=== PATIENT | male | born 1965 | race Caucasian/White ===

== ENCOUNTER 2017-12-31 21:25 | Emergency (ER) | payer OTHER ==
[~2017-12-31] VITALS: Ht 177.8 cm; Wt 117.3 kg
[~2017-12-31 21:25] MED LIST: LEVO25TA5 PO; LISI-730 PO
[2017-12-31 21:43] VITALS: TEMP 37.1; Ht 177.8 cm; Wt 117.3 kg
[2017-12-31] MEDS ORDERED: AMOXICIL/CLAVU 875MG HOME PACK PO ONE (22:15)
[2017-12-31] MEDS ORDERED: AMOX875T PO (22:15)
[2017-12-31 22:36] VITALS: BP 125/75; PULSE 78; O2SAT 98
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
== END 2017-12-31 22:41 | disposition home or self-care (01) ==
LOC: C.EDB 21:27 → C.EDD 22:41
DX: L03.113 Cellulitis of right upper limb (principal); S50.811A Abrasion of right forearm, initial encounter; W55.03XA Scratched by cat, initial encounter; Z86.72 Personal history of thrombophlebitis; F17.210 Nicotine dependence, cigarettes, uncomplicated; Z79.899 Other long term (current) drug therapy

== ENCOUNTER 2021-11-25 09:59 | Observation (INO) ==
[2021-11-25] MEDS ORDERED: MECLIZINE HCL 25 MG TAB PO STA (10:23)
[2021-11-25] MEDS ORDERED: ONDANSETRON INJ 2 MG/ML 2 ML VIAL IV STA (10:23)
--- NOTE | 2021-11-25 10:23 | Emergency Department Note ---
Impression & Plan Carotid artery stenosis, Dizziness, Vertebral artery stenosis, Ambulatory dysfunction, Dehydration ED Provider Note NAME: LOWELL HERNÁNDEZ AGE: 56 SEX: M : 1965 ARRIVES VIA: Walk-In INFORMANT: Patient, ED PROVIDER(S): Amarjit Rogers MD Chief Complaint: Dizziness HPI: Patient presents from home due to concern of generalized weakness and was unable to get up and out of bed. The patient believes her symptoms began this morning. No other reported findings or concerns per EMS. Patient does live at home with his . Patient denies any recent falls or trauma and denies any head neck chest back or abdominal pain. Patient does state that he has not been using the bathroom as well. The patient denies any cough or fever. 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 The patient denies any cough. Patient denies any abdominal pain or nausea vomiting. No exacerbating or remitting factors. ROS: See HPI for pertinent positives and negatives. A total of 10 systems were reviewed and otherwise negative. Past medical history: See below Surgical history: See below Social history: See below Physical Exam: GENERAL: Well appearing, well nourished, NAD, wearing glasses, wearing a mask, non-toxic. EYE EXAM: Normal conjunctiva. PERRL, no anisocoria and EOM's grossly intact w/o pain. No obvious nystagmus. [OROPHARYNX: Moist mucus membranes. Edentulous. NECK: Supple, no nuchal rigidity, no adenopathy, non-tender. No signs of meningismus. FROM of the neck with good chin to chest and neck extension. No stridor. No carotid bruits appreciated LUNGS: Clear to auscultation. Normal chest wall mechanics. HEART: NSR, no MRG. ABDOMEN: Abdomen soft, non-tender, normo-active bowel sounds, no masses, no rebound or guarding. BACK: No CVA TTP. SKIN: No rashes and no bruising. UPPER EXTREMITIES: Upper extremities are grossly normal. LOWER EXTREMITIES: Grossly normal, no edema. NEURO EXAM: A&O x3, cranial nerves II-XII grossly intact, normal speech, moves all 4 extremities on command w/o issue. Good finger to nose, no drift, no sensory deficits. Differential diagnoses: Benign positional vertigo, dehydration, hypovolemia, anemia, tumor, infection, hypoglycemia, electrolyte abnormalities, cardiac sources, intracerebral event, toxicologic, neurologic, as well as other pathologies. Course: Patient was seen and evaluated the bedside. Full history physical exam was performed. EKG interpreted by me Sinus bradycardia with first-degree AV block, rate of 57, prolonged ME, normal axis, no obvious ST elevations. Imaging Studies: See Below Cardiac monitoring: An order was placed for continuous cardiac monitoring. The monitor shows a rate of 65 with sinus rhythm. MDM: Patient presented due to concern for staggering gait and associated dizziness. The patient was treated symptomatically and did have CT of the head and CT angiography of the head and neck to rule out possible posterior ischemia. On reassessment the patient was feeling well. The patient has a normal white count H&H and platelet count kidney function is unremarkable albeit with prerenal azotemia. The patient did receive IV fluids. Troponin not elevated and the patient is COVID-negative. CT of the head is negative. CT angiography head neck did show concern for right ICA as well as right vertebral artery stenosis that is high-grade near complete occlusion. I did convey this to the patient. I did speak with on-call neurology who recommended admission and starting Plavix 75 mg daily. This was ordered and I did speak with Page Guerin PA-C and the patient was admitted by Dr. Conroy. Past Med/Surg History Medical History CAD (coronary artery disease) Cellulitis Diabetes mellitus, type II HBP (high blood pressure) Hypothyroidism Nonischemic cardiomyopathy Renal colic Superficial thrombophlebitis Tobacco use Surgical History History of cardiac cath 2015 History of colonoscopy Family History Brother Heart disease Father Heart disease Mother Lung cancer Social History Smoking Status: Unknown if ever smoked Tobacco Type: Cigarettes Cigarettes Per Day: 1ppd x 40 years; Hx Alcohol Use: No Hx Substance Use: No Preferred Language: Hungarian Communication Ability: Effective Bellman Required: No Beliefs That Will Affect Care: None Current Living Situation: Spouse Other Information That Helps Us Care for You: No Feels Safe at Home: Yes Safety Concerns: Feels Safe At This Time Assistive Devices: None Allergies Allergies Allergy/AdvReac Type Severity Reaction Status Date / Time Cipro Allergy Unknown Itching Verified 09/05/14 14:10 and rash ciprofloxacin Allergy Unknown Itching Verified 11/10/20 10:11 and rash Home Meds Home Medications Medication Instructions Recorded Confirmed aspirin 81 mg tablet,delayed 81 mg PO QAM 03/15/18 11/25/21 release levothyroxine 75 mcg tablet 75 mcg PO DAILY 03/15/18 11/25/21 metoprolol succinate 100 mg 100 mg PO QAM 03/15/18 11/25/21 tablet,extended release 24 hr (Toprol XL) fosinopril 10 mg tablet 5 mg PO HS tab 11/12/19 11/25/21 montelukast 10 mg tablet 10 mg PO QAM 11/12/19 11/25/21 meclizine 25 mg tablet 25 mg PO BID PRN 11/25/21 11/25/21 Previous Rx's Medication Instructions Recorded nitroglycerin 0.4 mg sublingual 0.4 mg SL Q5M PRN #25 tab 11/14/19 tablet Results & Data (ED) Vital Signs Vital Signs - 24 hr 11/25/21 10:00 11/25/21 10:17 11/25/21 10:23 Temperature 36.5 C Temperature Source Oral Pulse Rate 63 56 L 65 Pulse Rate [Apical] Pulse Rhythm Regular Regular Regular Pulse Rhythm [Apical] Pulse Strength Normal Pulse Strength [Apical] Respiratory Rate 20 20 20 Respiratory Effort / Characteristics Non-Labored Spontaneous Respiratory Depth Normal Respiratory Pattern Regular Blood Pressure 138/66 Blood Pressure [Left Arm] Blood Pressure Mean 90 Blood Pressure Mean [Left Arm] Blood Pressure Position [Left Arm] Pulse Oximetry 97 96 98 Oxygen Delivery Method Room Air Room Air Room Air Sepsis Recent Fever Within 48 Hours No Sepsis New/Unexplained Change in Mental Status No Sepsis Action Taken by Nursing No Action Required 11/25/21 10:30 11/25/21 12:01 Temperature Temperature Source Pulse Rate Pulse Rate [Apical] 56 L 57 L Pulse Rhythm Pulse Rhythm [Apical] Regular Regular Pulse Strength Pulse Strength [Apical] Normal Normal Respiratory Rate 20 18 Respiratory Effort / Characteristics Non-Labored Spontaneous Non-Labored Respiratory Depth Normal Normal Respiratory Pattern Regular Regular Blood Pressure Blood Pressure [Left Arm] 139/74 148/70 H Blood Pressure Mean Blood Pressure Mean [Left Arm] 95 96 Blood Pressure Position [Left Arm] Sitting Sitting Pulse Oximetry 96 97 Oxygen Delivery Method Room Air Room Air Sepsis Recent Fever Within 48 Hours Sepsis New/Unexplained Change in Mental Status Sepsis Action Taken by [facility] Medications Current Medication List: was personally reviewed by me Laboratory Data Attestation: I reviewed the patient's lab results. Result diagrams: 11/25/21 10:17 11/25/21 10:17 Lab Results 11/25/21 11/25/21 11/25/21 Range/Units 10:17 10:17 10:17 WBC 9.72 (4.8-10.8) K/uL RBC 4.64 L (4.7-6.1) M/uL Hgb 14.6 (14.0-18.0) g/dL Hct 42.3 (42-52) % MCV 91.2 (80-100) fL MCH 31.5 (25-34) pg MCHC 34.5 (32-36) g/dL RDW Std Deviation 44.6 (36.4-46.3) fL RDW Coeff of Rhonda 13.5 (11.5-14.5) % Plt Count 229 (130-400) K/uL MPV 9.4 (7.4-10.4) fL Immature Gran % (Auto) 0.2 % Neut % (Auto) 52.7 % Lymph % (Auto) 32.8 % [place] % (Auto) 8.8 % Eos % (Auto) 5.2 % Baso % (Auto) 0.3 % Neut # (Auto) 5.11 (1.4-6.5) K/uL Lymph # (Auto) 3.19 (1.2-3.4) K/uL [place] # (Auto) 0.86 H (0.11-0.59) K/uL Eos # (Auto) 0.51 H (0-0.5) K/uL Baso # (Auto) 0.03 (0-0.2) K/uL Immature Gran # (Auto) 0.02 (0.00-0.02) K/uL PT 10.9 (9.0-12.0) Seconds INR 1.0 (0.9-1.1) APTT 28.6 (21.0-31.0) Seconds PTT Ratio 1.0 Sodium 137 (136-145) mmol/L Potassium 4.1 (3.5-5.1) mmol/L Chloride 107 (98-107) mmol/L Carbon Dioxide 24 (21-32) mmol/L Anion Gap 6 (3-11) BUN 16 (6-23) mg/dl Creatinine 0.68 (0.6-1.4) mg/dl Est Cr Clr Drug Dosing 146.6 ml/min Est GFR ( Amer) 122.0 ml/min Est GFR (Non-Af Amer) 105.3 ml/min BUN/Creatinine Ratio 23.5 H (10-20) Glucose 113 H (70-99(Fasting)) mg/dl Calcium 9.1 (8.5-10.1) mg/dl Total Bilirubin 0.5 (0.2-1.0) mg/dl AST 14 (13-39) U/L ALT 15 (7-52) U/L Alkaline Phosphatase 48 (34-104) U/L Troponin I High Sens 5.1 (0-20) pg/ml Total Protein 6.9 (6.0-8.3) gm/dl Albumin 3.9 (3.4-5.0) gm/dl Globulin 3.0 (2.5-4.0) gm/dl Albumin/Globulin Ratio 1.3 (0.9-2) SARS-CoV-2, RNA, NAAT (NEGATIVE) 11/25/21 Range/Units 12:40 WBC (4.8-10.8) K/uL RBC (4.7-6.1) M/uL Hgb (14.0-18.0) g/dL Hct (42-52) % MCV (80-100) fL MCH (25-34) pg MCHC (32-36) g/dL RDW Std Deviation (36.4-46.3) fL RDW Coeff of Rhonda (11.5-14.5) % Plt Count (130-400) K/uL MPV (7.4-10.4) fL Immature Gran % (Auto) % Neut % (Auto) % Lymph % (Auto) % [place] % (Auto) % Eos % (Auto) % Baso % (Auto) % Neut # (Auto) (1.4-6.5) K/uL Lymph # (Auto) (1.2-3.4) K/uL [place] # (Auto) (0.11-0.59) K/uL Eos # (Auto) (0-0.5) K/uL Baso # (Auto) (0-0.2) K/uL Immature Gran # (Auto) (0.00-0.02) K/uL PT (9.0-12.0) Seconds INR (0.9-1.1) APTT (21.0-31.0) Seconds PTT Ratio Sodium (136-145) mmol/L Potassium (3.5-5.1) mmol/L Chloride (98-107) mmol/L Carbon Dioxide (21-32) mmol/L Anion Gap (3-11) BUN (6-23) mg/dl Creatinine (0.6-1.4) mg/dl Est Cr Clr Drug Dosing ml/min Est GFR ( Amer) ml/min Est GFR (Non-Af Amer) ml/min BUN/Creatinine Ratio (10-20) Glucose (70-99(Fasting)) mg/dl Calcium (8.5-10.1) mg/dl Total Bilirubin (0.2-1.0) mg/dl AST (13-39) U/L ALT (7-52) U/L Alkaline Phosphatase (34-104) U/L Troponin I High Sens (0-20) pg/ml Total Protein (6.0-8.3) gm/dl Albumin (3.4-5.0) gm/dl Globulin (2.5-4.0) gm/dl Albumin/Globulin Ratio (0.9-2) SARS-CoV-2, RNA, NAAT NEGATIVE (NEGATIVE) Administered Medications Discontinued Medications Clopidogrel Bisulfate (Clopidogrel Bisulfate 75 Mg Tab) 75 mg PO NOW ONE Stop: 11/25/21 12:21 Last Admin: 11/25/21 12:41 Dose: 75 mg Documented by: [id number] Sodium Chloride (Nss 1000ml) 1,000 mls @ 999 mls/hr IV .Q1H1M SADIA Stop: 11/25/21 11:30 Last Infusion: 11/25/21 11:40 Dose: 0 mls/hr Documented by: [id number] Admin: 11/25/21 10:39 Dose: 999 mls/hr Documented by: [id number] Ioversol (Optiray 320 125ml) 120 ml IV ONCE ONE Stop: 11/25/21 11:35 Last Admin: 11/25/21 11:34 Dose: 120 ml Documented by: [id number] Meclizine HCl (Meclizine Hcl 25 Mg Tab) 25 mg PO NOW STA Stop: 11/25/21 10:24 Last Admin: 11/25/21 10:39 Dose: Not Given Documented by: [id number] Ondansetron HCl (Ondansetron Inj 2 Mg/Ml 2 Ml Vial) 4 mg IV NOW STA Stop: 11/25/21 10:24 Last Admin: 11/25/21 10:39 Dose: Not Given Documented by: [id number] Imaging Data Radiologist's Impression: Head CT 11/25/21 10:[address] OF THE BRAIN; CT ANGIOGRAM OF THE BRAIN; CT ANGIOGRAM OF THE NECK CLINICAL HISTORY: Gait dysfunction. Difficulty walking. COMPARISON STUDY: No priors. TECHNIQUE: Unenhanced axial CT scan of the brain is performed. Subsequently, following the IV administration of 120 of Optiray 320, CT angiogram of the head and neck was performed from the aortic arch to the vertex. Images are reviewed in the axial, sagittal, and coronal planes. 3-D MIPS images are created and a ssessed. IV contrast was administered without complication. All measurements were calculated based on NASCET criteria. A dose lowering technique was utilized adhering to the principles of ALARA. CT DOSE: 1229.08 mGy.cm FINDINGS: Brain parenchyma: The brain parenchyma is normal in appearance. There is no hemorrhage, mass effect, or evidence of acute territorial ischemia by CT criteria. There is no evidence of enhancing mass lesion on the angiogram phase images. The ventricles, sulci, and cisterns are normal in configuration. Barone- white matter differentiation is preserved. No extra-axial fluid collection is seen. Thoracic aorta: There is atherosclerotic calcification of the thoracic aorta. Visualized portions of the thoracic aorta are normal in caliber. The aortic arch demonstrates 4-vessel variant anatomy. Right carotid arterial system: The right common femoral artery is patent noting atherosclerotic plaque and irregularity. Advanced atherosclerotic plaque is seen the carotid bulb. There is focal high-grade stenosis with near complete occlusion of the proximal right internal carotid artery seen on axial image #258. This is located approximately 1.5 cm above the bifurcation. The remainder of the right internal carotid artery is widely patent, as is the right external carotid artery. Left carotid arterial system: The left common carotid artery is patent noting atherosclerotic plaque and irregularity. There is atherosclerotic calcification of the carotid bulb. The left internal and external carotid arteries are widely patent. Vertebral arteries: There is at least moderate stenosis at the origin of the left vertebral artery. This arises directly from the thoracic aorta as seen on axial image #36. There is focal high-grade stenosis of the proximal right vertebral artery with near complete occlusion seen on axial image #157. This is located at the level of C7-T1. Vertebral arteries are otherwise patent bilaterally noting left-sided dominance. Subclavian arteries: Widely patent bilaterally. Intracranial vasculature: There is mild atherosclerotic calcification of the cavernous carotid arteries. The cher-ae [place] of [place] is developmentally complete. The internal carotid arteries are patent at the skull base, as are the anterior and middle cerebral arteries bilaterally. The vertebrobasilar system and posterior cerebral arteries are widely patent. The left vertebral artery is dominant. There is no aneurysm, high-grade stenosis, or focal vessel cut off seen throughout the intracranial circulation. Jugular veins: Patent bilaterally. Dural sinuses: Patent. Lung apices: Partially visualized upper lobe lung parenchyma appears clear. Soft tissues: The visualized pharyngeal soft tissues are normal in appearance noting angiographic phase technique. The oropharyngeal airway appears widely patent. The thyroid gland is heterogeneous. The salivary glands are normal in appearance. No cervical lymphadenopathy is seen. Skeletal structures: The calvarium appears intact. The cervical spine is within normal limits. Orbits: The bony orbits are intact. Orbital contents are normal as visualized. Sinuses and mastoids: Mild mucosal thickening is noted in the maxillary antra. The remaining paranasal sinuses are clear. The mastoid air cells are well pneumatized. IMPRESSION: 1. There is no hemorrhage, mass effect, or evidence of acute territorial ischemia by CT criteria. 2. Unremarkable CT angiogram of the brain. 3. There is focal high-grade stenosis with near complete occlusion of the proximal right internal carotid artery. 4. There is focal high-grade stenosis with near complete occlusion of the proximal right vertebral artery. 5. There is at least moderate stenosis at the origin of the left vertebral artery. This arises directly from the thoracic aorta. 6. Additional findings as above. ACT 112: Negative or not required by law. Electronically signed by: Don Matute M.D. 11/25/2021 11:55 AM Head CTA 11/25/21 10:[address] OF THE BRAIN; CT ANGIOGRAM OF THE BRAIN; CT ANGIOGRAM OF THE NECK CLINICAL HISTORY: Gait dysfunction. Difficulty walking. COMPARISON STUDY: No priors. TECHNIQUE: Unenhanced axial CT scan of the brain is performed. Subsequently, following the IV administration of 120 of Optiray 320, CT angiogram of the head and neck was performed from the aortic arch to the vertex. Images are reviewed i n the axial, sagittal, and coronal planes. 3-D MIPS images are created and assessed. IV contrast was administered without complication. All measurements were calculated based on NASCET criteria. A dose lowering technique was utilized adhering to the principles of ALARA. CT DOSE: 1229.08 mGy.cm FINDINGS: Brain parenchyma: The brain parenchyma is normal in appearance. There is no hemorrhage, mass effect, or evidence of acute territorial ischemia by CT criteria. There is no evidence of enhancing mass lesion on the angiogram phase images. The ventricles, sulci, and cisterns are normal in configuration. Barone- white matter differentiation is preserved. No extra-axial fluid collection is seen. Thoracic aorta: There is atherosclerotic calcification of the thoracic aorta. Visualized portions of the thoracic aorta are normal in caliber. The aortic arch demonstrates 4-vessel variant anatomy. Right carotid arterial system: The right common femoral artery is patent noting atherosclerotic plaque and irregularity. Advanced atherosclerotic plaque is seen the carotid bulb. There is focal high-grade stenosis with near complete occlusion of the proximal right internal carotid artery seen on axial image #258. This is located approximately 1.5 cm above the bifurcation. The remainder of the right internal carotid artery is widely patent, as is the right external carotid artery. Left carotid arterial system: The left common carotid artery is patent noting atherosclerotic plaque and irregularity. There is atherosclerotic calcification of the carotid bulb. The left internal and external carotid arteries are widely patent. Vertebral arteries: There is at least moderate stenosis at the origin of the left vertebral artery. This arises directly from the thoracic aorta as seen on axial image #36. There is focal high-grade stenosis of the proximal right vertebral artery with near complete occlusion seen on axial image #157. This is located at the level of C7-T1. Vertebral arteries are otherwise patent bilaterally noting left-sided dominance. Subclavian arteries: Widely patent bilaterally. Intracranial vasculature: There is mild atherosclerotic calcification of the cavernous carotid arteries. The cher[place]ae [place] of [place] is developmentally complete. The internal carotid arteries are patent at the skull base, as are the anterior and middle cerebral arteries bilaterally. The vertebrobasilar system and posterior cerebral arteries are widely patent. The left vertebral artery is dominant. There is no aneurysm, high-grade stenosis, or focal vessel cut off seen throughout the intracranial circulation. Jugular veins: Patent bilaterally. Dural sinuses: Patent. Lung apices: Partially visualized upper lobe lung parenchyma appears clear. Soft tissues: The visualized pharyngeal soft tissues are normal in appearance noting angiographic phase technique. The oropharyngeal airway appears widely patent. The thyroid gland is heterogeneous. The salivary glands are normal in appearance. No cervical lymphadenopathy is seen. Skeletal structures: The calvarium appears intact. The cervical spine is within normal limits. Orbits: The bony orbits are intact. Orbital contents are normal as visualized. Sinuses and mastoids: Mild mucosal thickening is noted in the maxillary antra. The remaining paranasal sinuses are clear. The mastoid air cells are well pneumatized. IMPRESSION: 1. There is no hemorrhage, mass effect, or evidence of acute territorial ischemia by CT criteria. 2. Unremarkable CT angiogram of the brain. 3. There is focal high-grade stenosis with near complete occlusion of the proximal right internal carotid artery. 4. There is focal high-grade stenosis with near complete occlusion of the proximal right vertebral artery. 5. There is at least moderate stenosis at the origin of the left vertebral artery. This arises directly from the thoracic aorta. 6. Additional findings as above. ACT 112: Negative or not required by law. Electronically signed by: Don Matute M.D. 11/25/2021 11:55 AM Neck CTA 11/25/21 10:[address] OF THE BRAIN; CT ANGIOGRAM OF THE BRAIN; CT ANGIOGRAM OF THE NECK CLINICAL HISTORY: Gait dysfunction. Difficulty walking. COMPARISON STUDY: No priors. TECHNIQUE: Unenhanced axial CT scan of the brain is performed. Subsequently, following the IV administration of 120 of Optiray 320, CT angiogram of the head and neck was performed from the aortic arch to the vertex. Images are reviewed in the axial, sagittal, and coronal planes. 3-D MIPS images are created and assessed. IV contrast was administered without complication. All measurements were calculated based on NASCET criteria. A dose lowering technique was utilized adhering to the principles of ALARA. CT DOSE: 1229.08 mGy.cm FINDINGS: Brain parenchyma: The brain parenchyma is normal in appearance. There is no hemorrhage, mass effect, or evidence of acute territorial ischemia by CT criteria. There is no evidence of enhancing mass lesion on the angiogram phase images. The ventricles, sulci, and cisterns are normal in configuration. Barone- white matter differentiation is preserved. No extra-axial fluid collection is seen. Thoracic aorta: There is atherosclerotic calcification of the thoracic aorta. Visualized portions of the thoracic aorta are normal in caliber. The aortic arch demonstrates 4-vessel variant anatomy. Right carotid arterial system: The right common femoral artery is patent noting atherosclerotic plaque and irregularity. Advanced atherosclerotic plaque is seen the carotid bulb. There is focal high-grade stenosis with near complete occlusion of the proximal right internal carotid artery seen on axial image #258. This is located approximately 1.5 cm above the bifurcation. The remainder of the right internal carotid artery is widely patent, as is the right external carotid artery. Left carotid arterial system: The left common carotid artery is patent noting atherosclerotic plaque and irregularity. There is atherosclerotic calcification of the carotid bulb. The left internal and external carotid arteries are widely patent. Vertebral arteries: There is at least moderate stenosis at the origin of the left vertebral artery. This arises directly from the thoracic aorta as seen on axial image #36. There is focal high-grade stenosis of the proximal right vertebral artery with near complete occlusion seen on axial image #157. This is located at the level of C7-T1. Vertebral arteries are otherwise patent bilaterally noting left-sided dominance. Subclavian arteries: Widely patent bilaterally. Intracranial vasculature: There is mild atherosclerotic calcification of the cavernous carotid arteries. The cher-ae [place] of [place] is developmentally complete. The internal carotid arteries are patent at the skull base, as are the anterior and middle cerebral arteries bilaterally. The vertebrobasilar system and posterior cerebral arteries are widely patent. The left vertebral artery is dominant. There is no aneurysm, high-grade stenosis, or focal vessel cut off seen throughout the intracranial circulation. Jugular veins: Patent bilaterally. Dural sinuses: Patent. Lung apices: Partially visualized upper lobe lung parenchyma appears clear. Soft tissues: The visualized pharyngeal soft tissues are normal in appearance noting angiographic phase technique. The oropharyngeal airway appears widely patent. The thyroid gland is heterogeneous. The salivary glands are normal in appearance. No cervical lymphadenopathy is seen. Skeletal structures: The calvarium appears intact. The cervical spine is within normal limits. Orbits: The bony orbits are intact. Orbital contents are normal as visualized. Sinuses and mastoids: Mild mucosal thickening is noted in the maxillary antra. The remaining paranasal sinuses are clear. The mastoid air cells are well pneumatized. IMPRESSION: 1. There is no hemorrhage, mass effect, or evidence of acute territorial ischemia by CT criteria. 2. Unremarkable CT angiogram of the brain. 3. There is focal high-grade stenosis with near complete occlusion of the proxi mal right internal carotid artery. 4. There is focal high-grade stenosis with near complete occlusion of the proximal right vertebral artery. 5. There is at least moderate stenosis at the origin of the left vertebral artery. This arises directly from the thoracic aorta. 6. Additional findings as above. ACT 112: Negative or not required by law. Electronically signed by: Don Matute M.D. 11/25/2021 11:55 AM Brain MRI 11/25/21 12:20 MR brain wo con CLINICAL HISTORY: gait instability and dizziness, R vert/ICA stenosi TECHNIQUE: Multiplanar and multisequence MR images of the brain were obtained without intravenous contrast. Comparison: None available at the time of this dictation. FINDINGS: No abnormal restricted diffusion is identified. Foci of T2 and FLAIR hyperintensity are noted in the paraventricular areas consistent with chronic small vessel ischemic disease. The ventricular system is normal in appearance. No mass is seen. There is no mass effect or midline shift. There is no evidence of acute intraparenchymal hemorrhage. No extra axial fluid collections are seen. The corpus callosum, pituitary gland, and cerebellar tonsils appear grossly unremarkable. Flow voids of the major intracranial arterial vessels are identified. Sinus disease is seen in the bilateral maxillary sinuses. IMPRESSION: No evidence of infarct. Sinus disease is noted bilaterally. ACT 112: Negative or not required by law. Electronically signed by: Adi Elizabeth M.D. 11/25/2021 2:10 PM Discharge Plan Visit Data Chief Complaint: Dizziness Stated Complaint: DIZZINESS ED Provider: Amarjit Rogers Discharge Problem: Carotid artery stenosis, Dizziness, Vertebral artery stenosis, Ambulatory dysfunction, Dehydration Patient Disposition: Admitted As Inpatient Discharge Instructions Interventions: ED Discharge Assessment Last Done: 11/25/21 14:37
[2021-11-25] MEDS ORDERED: SODIUM CHLORIDE 0.9% 1000ML 1,000 ML IV SCH (10:30)
[2021-11-25 10:44] LABS: Basophils # (auto) 0.03 K/uL (0-0.2); Basophils % (auto) 0.3 %; Eosinophils # (auto) 0.51 K/uL (0-0.5); Eosinophils % (auto) 5.2 %; Hematocrit (blood only) 42.3 % (42-52); Hemoglobin 14.6 g/dL (14.0-18.0); Immature Granulocytes # (auto) 0.02 K/uL (0.00-0.02); Immature Granulocytes % (auto) 0.2 %; Lymphocytes # (auto) 3.19 K/uL (1.2-3.4); Lymphocytes % (auto) 32.8 %; Mean Corpuscular Hemoglobin 31.5 pg (25-34); Mean Corpuscular Hgb Conc 34.5 g/dL (32-36); Mean Corpuscular Volume 91.2 fL (80-100); Mean Platelet Volume 9.4 fL (7.4-10.4); Monocytes # (auto) 0.86 K/uL (0.11-0.59); Monocytes % (auto) 8.8 %; Neutrophils # (auto) 5.11 K/uL (1.4-6.5); Neutrophils % (auto) 52.7 %; Platelet Count 229 K/uL (130-400); RDW Coefficient of Variation 13.5 % (11.5-14.5); RDW Standard Deviation 44.6 fL (36.4-46.3); Red Blood Count 4.64 M/uL (4.7-6.1); White Blood Count 9.72 K/uL (4.8-10.8)
[2021-11-25 10:53] LABS: Albumin Globulin Ratio 1.3 (0.9-2); Albumin Level 3.9 gm/dl (3.4-5.0); BUN Creatinine Ratio 23.5 (10-20); Bilirubin,Total 0.5 mg/dl (0.2-1.0); Calcium 9.1 mg/dl (8.5-10.1); Creatinine Clr Calc Pharmacy 146.6 ml/min; Est GFR (Non-African American) 105.3 ml/min; Potassium 4.1 mmol/L (3.5-5.1); Total Protein 6.9 gm/dl (6.0-8.3)
[2021-11-25 10:57] LABS: Troponin I High Sensitivity 5.1 pg/ml (0-20)
[2021-11-25] MEDS ORDERED: OPTIRAY 320 125ml IV ONE (11:34)
--- NOTE | 2021-11-25 11:58 | CT Scan Report ---
UNENHANCED CT OF THE BRAIN; CT ANGIOGRAM OF THE BRAIN; CT ANGIOGRAM OF THE NECK CLINICAL HISTORY: Gait dysfunction. Difficulty walking. COMPARISON STUDY: No priors. TECHNIQUE: Unenhanced axial CT scan of the brain is performed. Subsequently, following the IV adminis tration of 120 of [address] 320, CT angiogram of the head and neck was performed from the aortic arch t o the vertex. Images are reviewed in the axial, sagittal, and coronal planes. 3-D MIPS images are cre ated and assessed. IV contrast was administered without complication. All measurements were calculate d based on NASCET criteria. A dose lowering technique was utilized adhering to the principles of ALA RA. CT DOSE: 1229.08 mGy.cm FINDINGS: Brain parenchyma: The brain parenchyma is normal in appearance. There is no hemorrhage, mass effect, or evidence of acute territorial ischemia by CT criteria. There is no evidence of enhancing mass lesi on on the angiogram phase images. The ventricles, sulci, and cisterns are normal in configuration. Gr ay-white matter differentiation is preserved. No extra-axial fluid collection is seen. Thoracic aorta: There is atherosclerotic calcification of the thoracic aorta. Visualized portions of the thoracic aorta are normal in caliber. The aortic arch demonstrates 4-vessel variant anatomy. Right carotid arterial system: The right common femoral artery is patent noting atherosclerotic plaqu e and irregularity. Advanced atherosclerotic plaque is seen the carotid bulb. There is focal high-gra de stenosis with near complete occlusion of the proximal right internal carotid artery seen on axial image #258. This is located approximately 1.5 cm above the bifurcation. The remainder of the right in ternal carotid artery is widely patent, as is the right external carotid artery. Left carotid arterial system: The left common carotid artery is patent noting atherosclerotic plaque and irregularity. There is atherosclerotic calcification of the carotid bulb. The left internal and e xternal carotid arteries are widely patent. Vertebral arteries: There is at least moderate stenosis at the origin of the left vertebral artery. T his arises directly from the thoracic aorta as seen on axial image #36. There is focal high-grade ginny nosis of the proximal right vertebral artery with near complete occlusion seen on axial image #157. T his is located at the level of C7-T1. Vertebral arteries are otherwise patent bilaterally noting left -sided dominance. Subclavian arteries: Widely patent bilaterally. Intracranial vasculature: There is mild atherosclerotic calcification of the cavernous carotid arteri es. The [place] is developmentally complete. The internal carotid arteries are patent at the skull base, as are the anterior and middle cerebral arteries bilaterally. The vertebrobasilar system and posterior cerebral arteries are widely patent. The left vertebral artery is dominant. There is n o aneurysm, high-grade stenosis, or focal vessel cut off seen throughout the intracranial circulation . Jugular veins: Patent bilaterally. Dural sinuses: Patent. Lung apices: Partially visualized upper lobe lung parenchyma appears clear. Soft tissues: The visualized pharyngeal soft tissues are normal in appearance noting angiographic pha se technique. The oropharyngeal airway appears widely patent. The thyroid gland is heterogeneous. The salivary glands are normal in appearance. No cervical lymphadenopathy is seen. Skeletal structures: The calvarium appears intact. The cervical spine is within normal limits. Orbits: The bony orbits are intact. Orbital contents are normal as visualized. Sinuses and mastoids: Mild mucosal thickening is noted in the maxillary antra. The remaining paranasa l sinuses are clear. The mastoid air cells are well pneumatized. IMPRESSION: 1. There is no hemorrhage, mass effect, or evidence of acute territorial ischemia by CT criteria. 2. Unremarkable CT angiogram of the brain. 3. There is focal high-grade stenosis with near complete occlusion of the proximal right internal car otid artery. 4. There is focal high-grade stenosis with near complete occlusion of the proximal right vertebral ar osmin. 5. There is at least moderate stenosis at the origin of the left vertebral artery. This arises direct ly from the thoracic aorta. 6. Additional findings as above. ACT 112: Negative or not required by law. Electronically signed by: Don Matute M.D. 11/25/2021 11:55 AM
[2021-11-25] MEDS ORDERED: CLOPIDOGREL BISULFATE 75 MG TAB PO ONE (12:20)
--- NOTE | 2021-11-25 13:02 | Electrocardiogram Report ---
Test Reason : Blood Pressure : / mmHG Vent. Rate : 057 BPM Atrial Rate : 057 BPM P-R Int : 222 ms QRS Dur : 098 ms QT Int : 428 ms P-R-T Axes : 054 042 080 degrees QTc Int : 416 ms Sinus bradycardia with 1st degree A-V block Poor R wave progression, consider anterior [place] vs. lead placement vs. LVH Abnormal ECG When compared with ECG of 02-MAR-2020 11:00, Premature ventricular complexes are no longer Present Confirmed by Jerardo Cedillo ([id number]) on 11/25/2021 1:01:38 PM Referred By: REFERRED SELF Confirmed By:Jerardo Cedillo
--- NOTE | 2021-11-25 13:26 | History & Physical Report ---
Date of Service November 25, 2021 Assessment & Plan (1) Dizziness: Plan: Patient is 56 y/o M with PMH DM II, nonischemic cardiomyopathy, tobacco use presented to ER with c/o dizziness x 2 months with worsening symptoms. CTA Head and Neck: 1. There is no hemorrhage, mass effect, or evidence of acute territorial ischemia by CT criteria. 2. Unremarkable CT angiogram of the brain. 3. There is focal high-grade stenosis with near complete occlusion of the proximal right internal carotid artery. 4. There is focal high-grade stenosis with near complete occlusion of the proximal right vertebral artery. 5. There is at least moderate stenosis at the origin of the left vertebral artery. This arises directly from the thoracic aorta. Dizziness may be secondary to stenosis. DDX: TIA, CVA Telemetry to monitor for arrhythmias A1c, TSH, Lipid panel in am MRI brain pending PT/OT eval Continue aspirin Patient intolerant to statins per cardiology note. May need to discuss with cardiology further consideration for different medication. Start Plavix, initial dose given in ER Neurology consult, ER spoke with Dr Meyer who had recommended MRI brain and starting Plavix Smoking cessation recommended Vascular surgery consult, if unable to see inpatient consider outpatient referral (2) Diabetes mellitus, type II: Plan: A1c: 8.1 in 05/2021 and 7.3 in 09/2021 with diet modifications A1c in am Novolog sliding scale per protocol (3) Nonischemic cardiomyopathy: Plan: Follows with [facility] cardiology Continue metoprolol succinate, aspirin, fosinopril Pt intolerant to statins (4) Tobacco use: Plan: Smoking cessation recommended (5) Hypothyroidism: Plan: TSH pending Continue hypothyroidism DVT Prophylaxis Lovenox SQ Full Code as per discussion with pt Follows with Dr Lazo for routine care Pt was seen and care coordinated with Dr Conroy. See addendum History of Present Illness Chief Complaint: Dizziness Primary Care Provider: Lucas Lazo MD Patient is 56 y/o M with PMH DM II, nonischemic cardiomyopathy, tobacco use p resented to ER with c/o dizziness x 2 months. Initially dizziness lasted less than a minute. Now lasting 5-10 minutes. Describes dizziness as feeling things shifting side to side and feels off balance and nauseated. No vomiting. Patient reports has occurred with getting up or standing. has not occurred with sitting or lying in bed. States vision somewhat blurry and then takes several minutes to clear. Denies any associated headache. Denies falls. Saw PCP office and trial of meclizine without improvement. Reports vertigo in past and this feels different. Denies fever/chills, diaphoresis, vomiting, diarrhea, constipation, syncope, neck pain, CP, SOB, orthopnea, palpitations, cough, sore throat, choking, otalgia, rhinorrhea, abdominal pain, paresthesias, extremity weakness, extremity edema, rashes, urinary symptoms. Allergies Allergy/AdvReac Type Severity Reaction Status Date / Time Cipro Allergy Unknown Itching Verified 09/05/14 14:10 and rash ciprofloxacin Allergy Unknown Itching Verified 11/10/20 10:11 and rash Home Medications Medication Instructions Recorded Confirmed Type aspirin 81 mg tablet,delayed 81 mg PO QAM 03/15/18 11/10/20 History release levothyroxine 75 mcg tablet 75 mcg PO Q2D 03/15/18 11/10/20 History metoprolol succinate 100 mg 100 mg PO QAM 03/15/18 11/10/20 History tablet,extended release 24 hr (Toprol XL) fosinopril 10 mg tablet 5 mg PO HS tab 11/12/19 11/10/20 History montelukast 10 mg tablet 10 mg PO QAM 11/12/19 11/10/20 History nitroglycerin 0.4 mg sublingual 0.4 mg SL Q5M PRN #25 tab 11/14/19 11/10/20 Rx tablet meclizine 25 mg tablet 25 mg PO BID PRN 11/25/21 11/25/21 History Past Med/Surg History Medical History CAD (coronary artery disease) Cellulitis Diabetes mellitus, type II HBP (high blood pressure) Hypothyroidism Nonischemic cardiomyopathy Renal colic Superficial thrombophlebitis Tobacco use Surgical History (Updated 11/25/21 @ 13:44 by Zoraida Guerin PA-C) History of cardiac cath 2015 History of colonoscopy Family History (Updated 11/25/21 @ 13:36 by Zoraida Guerin PA-C) Brother Heart disease Father Heart disease Mother Lung cancer Social History (Updated 11/25/21 @ 14:11 by Zoraida Guerin PA-C) Smoking Status: Current every day smoker Tobacco Type: Cigarettes Cigarettes Per Day: 1ppd x 40 years; Hx Alcohol Use: No Hx Substance Use: No Preferred Language: Luxembourgish Feels Safe at Home: Yes Review of Systems Review of Systems: All systems reviewed & are unremarkable except as noted in HPI & below Physical Exam Physical Exam: PE per Dr Conroy Results & Data Results & Data ([facility]) Vital Signs (Past 12 Hours) Vital Signs Temp Pulse Pulse Resp BP BP Pulse Ox 11/25/21 12:01 57 L 18 148/70 H 97 11/25/21 10:30 56 L 20 139/74 96 11/25/21 10:23 65 20 98 11/25/21 10:17 56 L 20 96 11/25/21 10:00 36.5 C 63 20 138/66 97 Laboratory Results Short CBC 11/25/21 Range/Units 10:17 WBC 9.72 (4.8-10.8) K/uL Hgb 14.6 (14.0-18.0) g/dL Hct 42.3 (42-52) % Plt Count 229 (130-400) K/uL BMP 11/25/21 10:17 Sodium 137 Potassium 4.1 Chloride 107 Carbon Dioxide 24 BUN 16 Creatinine 0.68 Glucose 113 H Calcium 9.1 Liver Function 11/25/21 Range/Units 10:17 Total Bilirubin 0.5 (0.2-1.0) mg/dl AST 14 (13-39) U/L ALT 15 (7-52) U/L Alkaline Phosphatase 48 (34-104) U/L Albumin 3.9 (3.4-5.0) gm/dl Diagnostic Findings Head CT 11/25/21 10:[address] OF THE BRAIN; CT ANGIOGRAM OF THE BRAIN; CT ANGIOGRAM OF THE NECK CLINICAL HISTORY: Gait dysfunction. Difficulty walking. COMPARISON STUDY: No priors. TECHNIQUE: Unenhanced axial CT scan of the brain is performed. Subsequently, following the IV administration of 120 of Optiray 320, CT angiogram of the head and neck was performed from the aortic arch to the vertex. Images are reviewed in the axial, sagittal, and coronal planes. 3-D MIPS images are created and assessed. IV contrast was administered without complication. All measurements were calculated based on NASCET criteria. A dose lowering technique was utilized adhering to the principles of ALARA. CT DOSE: 1229.08 mGy.cm FINDINGS: Brain parenchyma: The brain parenchyma is normal in appearance. There is no hemorrhage, mass effect, or evidence of acute territorial ischemia by CT criteria. There is no evidence of enhancing mass lesion on the angiogram phase images. The ventricles, sulci, and cisterns are normal in configuration. Barone- white matter differentiation is preserved. No extra-axial fluid collection is seen. Thoracic aorta: There is atherosclerotic calcification of the thoracic aorta. Visualized portions of the thoracic aorta are normal in caliber. The aortic arch demonstrates 4-vessel variant anatomy. Right carotid arterial system: The right common femoral artery is patent noting atherosclerotic plaque and irregularity. Advanced atherosclerotic plaque is seen the carotid bulb. There is focal high-grade stenosis with near complete occlusion of the proximal right internal carotid artery seen on axial image #258. This is located approximately 1.5 cm above the bifurcation. The remainder of the right internal carotid artery is widely patent, as is the right external carotid artery. Left carotid arterial system: The left common carotid artery is patent noting atherosclerotic plaque and irregularity. There is atherosclerotic calcification of the carotid bulb. The left internal and external carotid arteries are widely patent. Vertebral arteries: There is at least moderate stenosis at the origin of the left vertebral artery. This arises directly from the thoracic aorta as seen on axial image #36. There is focal high-grade stenosis of the proximal right vertebral artery with near complete occlusion seen on axial image #157. This is located at the level of C7-T1. Vertebral arteries are otherwise patent bilaterally noting left-sided dominance. Subclavian arteries: Widely patent bilaterally. Intracranial vasculature: There is mild atherosclerotic calcification of the cavernous carotid arteries. The port [place] of [place] is developmentally complete. The internal carotid arteries are patent at the skull base, as are the anterior and middle cerebral arteries bilaterally. The vertebrobasilar system and posterior cerebral arteries are widely patent. The left vertebral artery is dominant. There is no aneurysm, high-grade stenosis, or focal vessel cut off seen throughout the intracranial circulation. Jugular veins: Patent bilaterally. Dural sinuses: Patent. Lung apices: Partially visualized upper lobe lung parenchyma appears clear. Soft tissues: The visualized pharyngeal soft tissues are normal in appearance noting angiographic phase technique. The oropharyngeal airway appears widely patent. The thyroid gland is heterogeneous. The salivary glands are normal in appearance. No cervical lymphadenopathy is seen. Skeletal structures: The calvarium appears intact. The cervical spine is within normal limits. Orbits: The bony orbits are intact. Orbital contents are normal as visualized. Sinuses and mastoids: Mild mucosal thickening is noted in the maxillary antra. The remaining paranasal sinuses are clear. The mastoid air cells are well pneumatized. IMPRESSION: 1. There is no hemorrhage, mass effect, or evidence of acute territorial ischemia by CT criteria. 2. Unremarkable CT angiogram of the brain. 3. There is focal high-grade stenosis with near complete occlusion of the proximal right internal carotid artery. 4. There is focal high-grade stenosis with near complete occlusion of the proximal right vertebral artery. 5. There is at least moderate stenosis at the origin of the left vertebral artery. This arises directly from the thoracic aorta. 6. Additional findings as above. ACT 112: Negative or not required by law. Electronically signed by: Don Matute M.D. 11/25/2021 11:55 AM Head CTA 11/25/21 10:[address] OF THE BRAIN; CT ANGIOGRAM OF THE BRAIN; CT ANGIOGRAM OF THE NECK CLINICAL HISTORY: Gait dysfunction. Difficulty walking. COMPARISON STUDY: No priors. TECHNIQUE: Unenhanced axial CT scan of the brain is performed. Subsequently, following the IV administration of 120 of Optiray 320, CT angiogram of the head and neck was performed from the aortic arch to the vertex. Images are reviewed in the axial, sagittal, and coronal planes. 3-D MIPS images are created and assessed. IV contrast was administered without complication. All measurements were calculated based on NASCET criteria. A dose lowering technique was utilized adhering to the principles of ALARA. CT DOSE: 1229.08 mGy.cm FINDINGS: Brain parenchyma: The brain parenchyma is normal in appearance. There is no hemorrhage, mass effect, or evidence of acute territorial ischemia by CT criteria. There is no evidence of enhancing mass lesion on the angiogram phase images. The ventricles, sulci, and cisterns are normal in configuration. Barone- white matter differentiation is preserved. No extra-axial fluid collection is seen. Thoracic aorta: There is atherosclerotic calcification of the thoracic aorta. Visualized portions of the thoracic aorta are normal in caliber. The aortic arch demonstrates 4-vessel variant anatomy. Right carotid arterial system: The right common femoral artery is patent noting atherosclerotic plaque and irregularity. Advanced atherosclerotic plaque is seen the carotid bulb. There is focal high-grade stenosis with near complete occlusion of the proximal right internal carotid artery seen on axial image #258. This is located approximately 1.5 cm above the bifurcation. The remainder of the right internal carotid artery is widely patent, as is the right external carotid artery. Left carotid arterial system: The left common carotid artery is patent noting atherosclerotic plaque and irregularity. There is atherosclerotic calcification of the carotid bulb. The left internal and external carotid arteries are widely patent. Vertebral arteries: There is at least moderate stenosis at the origin of the left vertebral artery. This arises directly from the thoracic aorta as seen on axial image #36. There is focal high-grade stenosis of the proximal right vertebral artery with near complete occlusion seen on axial image #157. This is located at the level of C7-T1. Vertebral arteries are otherwise patent bilaterally noting left-sided dominance. Subclavian arteries: Widely patent bilaterally. Intracranial vasculature: There is mild atherosclerotic calcification of the cavernous carotid arteries. The port heiden of [place] is developmentally complete. The internal carotid arteries are patent at the skull base, as are the anterior and middle cerebral arteries bilaterally. The vertebrobasilar system and posterior cerebral arteries are widely patent. The left vertebral artery is dominant. There is no aneurysm, high-grade stenosis, or focal vessel cut off seen throughout the intracranial circulation. Jugular veins: Patent bilaterally. Dural sinuses: Patent. Lung apices: Partially visualized upper lobe lung parenchyma appears clear. Soft tissues: The visualized pharyngeal soft tissues are normal in appearance noting angiographic phase technique. The oropharyngeal airway appears widely patent. The thyroid gland is heterogeneous. The salivary glands are normal in appearance. No cervical lymphadenopathy is seen. Skeletal structures: The calvarium appears intact. The cervical spine is within normal limits. Orbits: The bony orbits are intact. Orbital contents are normal as visualized. Sinuses and mastoids: Mild mucosal thickening is noted in the maxillary antra. The remaining paranasal sinuses are clear. The mastoid air cells are well pneumatized. IMPRESSION: 1. There is no hemorrhage, mass effect, or evidence of acute territorial ischemia by CT criteria. 2. Unremarkable CT angiogram of the brain. 3. There is focal high-grade stenosis with near complete occlusion of the proximal right internal carotid artery. 4. There is focal high-grade stenosis with near complete occlusion of the proximal right vertebral artery. 5. There is at least moderate stenosis at the origin of the left vertebral artery. This arises directly from the thoracic aorta. 6. Additional findings as above. ACT 112: Negative or not required by law. Electronically signed by: Don Matute M.D. 11/25/2021 11:55 AM Neck CTA 11/25/21 10:[address] OF THE BRAIN; CT ANGIOGRAM OF THE BRAIN; CT ANGIOGRAM OF THE NECK CLINICAL HISTORY: Gait dysfunction. Difficulty walking. COMPARISON STUDY: No priors. TECHNIQUE: Unenhanced axial CT scan of the brain is performed. Subsequently, following the IV administration of 120 of Optiray 320, CT angiogram of the head and neck was performed from the aortic arch to the vertex. Images are reviewed in the axial, sagittal, and coronal planes. 3-D MIPS images are created and assessed. IV contrast was administered without complication. All measurements were calculated based on NASCET criteria. A dose lowering technique was utilized adhering to the principles of ALARA. CT DOSE: 1229.08 mGy.cm FINDINGS: Brain parenchyma: The brain parenchyma is normal in appearance. There is no hemorrhage, mass effect, or evidence of acute territorial ischemia by CT criteria. There is no evidence of enhancing mass lesion on the angiogram phase images. The ventricles, sulci, and cisterns are normal in configuration. Barone- white matter differentiation is preserved. No extra-axial fluid collection is seen. Thoracic aorta: There is atherosclerotic calcification of the thoracic aorta. Visualized portions of the thoracic aorta are normal in caliber. The aortic arch demonstrates 4-vessel variant anatomy. Right carotid arterial system: The right common femoral artery is patent noting atherosclerotic plaque and irregularity. Advanced atherosclerotic plaque is seen the carotid bulb. There is focal high-grade stenosis with near complete occlusion of the proximal right internal carotid artery seen on axial image #258. This is located approximately 1.5 cm above the bifurcation. The remainder of the right internal carotid artery is widely patent, as is the right external carotid artery. Left carotid arterial system: The left common carotid artery is patent noting atherosclerotic plaque and irregularity. There is atherosclerotic calcification of the carotid bulb. The left internal and external carotid arteries are widely patent. Vertebral arteries: There is at least moderate stenosis at the origin of the left vertebral artery. This arises directly from the thoracic aorta as seen on axial image #36. There is focal high-grade stenosis of the proximal right vertebral artery with near complete occlusion seen on axial image #157. This is located at the level of C7-T1. Vertebral arteries are otherwise patent bilaterally noting left-sided dominance. Subclavian arteries: Widely patent bilaterally. Intracranial vasculature: There is mild atherosclerotic calcification of the cavernous carotid arteries. The port heiden of [place] is developmentally complete. The internal carotid arteries are patent at the skull base, as are the anterior and middle cerebral arteries bilaterally. The vertebrobasilar system and posterior cerebral arteries are widely patent. The left vertebral artery is dominant. There is no aneurysm, high-grade stenosis, or focal vessel cut off seen throughout the intracranial circulation. Jugular veins: Patent bilaterally. Dural sinuses: Patent. Lung apices: Partially visualized upper lobe lung parenchyma appears clear. Soft tissues: The visualized pharyngeal soft tissues are normal in appearance noting angiographic phase technique. The oropharyngeal airway appears widely patent. The thyroid gland is heterogeneous. The salivary glands are normal in appearance. No cervical lymphadenopathy is seen. Skeletal structures: The calvarium appears intact. The cervical spine is within normal limits. Orbits: The bony orbits are intact. Orbital contents are normal as visualized. Sinuses and mastoids: Mild mucosal thickening is noted in the maxillary antra. The remaining paranasal sinuses are clear. The mastoid air cells are well pneumatized. IMPRESSION: 1. There is no hemorrhage, mass effect, or evidence of acute territorial ischemia by CT criteria. 2. Unremarkable CT angiogram of the brain. 3. There is focal high-grade stenosis with near complete occlusion of the proximal right internal carotid artery. 4. There is focal high-grade stenosis with near complete occlusion of the proximal right vertebral artery. 5. There is at least moderate stenosis at the origin of the left vertebral artery. This arises directly from the thoracic aorta. 6. Additional findings as above. ACT 112: Negative or not required by law. Electronically signed by: Don Matute M.D. 11/25/2021 11:55 AM ECG Rate (beats per minute): 57 Rhythm: sinus bradycardia Findings: + 1st degree AV block Code Status & VTE Plan VTE Prophylaxis Plan VTE Prophylaxis will be ordered: Yes Supervising Physician Co-Signing Physician Notes History and physical exam performed by me. History notable for 56-year-old man with diabetes mellitus type 2, non obstructive CAD, nonischemic cardiomyopathy, active smoker who presented with c omplaint of dizziness for the past 2 months has been worsening. Reports dizziness usually feels like objects/images move from side to side, usually still lasts about a minute but none lasting up to 5 to 10 minutes Barrera on getting up while standing. Associated with nausea. Reports significant premature cardiac family history. Still smokes about half to 1 pack/day. On exam, General: No acute distress Eyes: PERRL, conjunctivae normal, not pale, anicteric sclerae, EOM intact bilaterally ENMT: External ear and nose normal, oropharynx normal Respiratory: Normal respiratory effort, no respiratory distress, lungs clear to auscultation, no crackles and no wheezes Cardiovascular: RRR S1 S2 Gastrointestinal (Abdomen): Abdomen is not distended, soft, non-tender to palpation, no guarding, no palpable hepatosplenomegaly, normal bowel sounds Musculoskeletal: No pedal edema Neurologic: Alert and oriented x 3, No focal weakness, sensation grossly intact, No nystagmus Psychiatric: Alert and oriented x 3, euthymic affect Labs grossly unremarkable. CT head did not show any acute hemorrhage or infarct. CT angio head and neck noted focal high-grade stenosis with near complete occlusion of the proximal right internal carotid artery as well as the proximal right vertebral artery and at least moderate stenosis at the origin of the left vertebral artery. MRI brain did not show any evidence of infarct. Dizziness Right carotid artery stenosis Right vertebral artery stenosis Dizziness likely related to vascular disease. Patient on aspirin. ER had started Plavix after talking to neurology. Follow-up neurology evaluation. Review of epic notes as follows [facility] [place] cardiology notes showed that patient has been intolerant to statin in the past. May need to discuss with [place] [facility] cardiology if patient is a candidate for possible treatment with zetia vs PCSK9 inhibitors. Vascular surgery consult Counseled patient extensively on need for smoking cessation Agree with other plans as detailed by Zoraida Guerin PA-C
--- NOTE | 2021-11-25 14:12 | Magnetic Resonance Report ---
MR brain wo con CLINICAL HISTORY: gait instability and dizziness, R vert/ICA stenosi TECHNIQUE: Multiplanar and multisequence MR images of the brain were obtained without intravenous con trast. Comparison: None available at the time of this dictation. FINDINGS: No abnormal restricted diffusion is identified. Foci of T2 and FLAIR hyperintensity are noted in the paraventricular areas consistent with chronic small vessel ischemic disease. The ventricular system i s normal in appearance. No mass is seen. There is no mass effect or midline shift. There is no eviden ce of acute intraparenchymal hemorrhage. No extra axial fluid collections are seen. The corpus callos um, pituitary gland, and cerebellar tonsils appear grossly unremarkable. Flow voids of the major intracranial arterial vessels are identified. Sinus disease is seen in the bi lateral maxillary sinuses. IMPRESSION: No evidence of infarct. Sinus disease is noted bilaterally. ACT 112: Negative or not required by law. Electronically signed by: Adi Elizabeth M.D. 11/25/2021 2:10 PM
[2021-11-25] MEDS ORDERED: ACETAMINOPHEN 325 MG TAB PO PRN (14:50)
[2021-11-25] MEDS ORDERED: POLYETHYLENE (MIRALAX) 17 GM PACK PO PRN (14:50)
[2021-11-25] MEDS ORDERED: GLUCOSE 40% GEL 15 GM TUBE PO PRN (14:50)
[2021-11-25] MEDS ORDERED: PHARMACIST DISCHARGE MED REC CONSULT PRN (14:50)
[2021-11-25] MEDS ORDERED: CARBOHYDRATES FOR HYPOGLYCEMIA PO PRN (14:50)
[2021-11-25] MEDS ORDERED: ONDANSETRON INJ 2 MG/ML 2 ML VIAL IV PRN (14:50)
[2021-11-25] MEDS ORDERED: DEXTROSE 50% 50 ML SYRINGE IV PRN (14:50)
[2021-11-25] MEDS ORDERED: GLUCAGON FOR INJ 1 MG VIAL SQ PRN (14:50)
[2021-11-25] MEDS ORDERED: NITROGLYCERIN SL 0.4 MG/TAB TAB SL PRN (14:50)
[2021-11-25] MEDS ORDERED: GLUCOSE 10 TABS/TUBE PO PRN (14:50)
[2021-11-25 15:02] LABS: Partial Thromboplastin Time 28.6 Seconds (21.0-31.0); Prothrombin Time 10.9 Seconds (9.0-12.0)
--- NOTE | 2021-11-25 16:16 | Neurology Consultation ---
Date of Consultation November 25, 2021 Assessment & Plan (1) Dizziness: 1. MRI brain - no stroke 2. significant stenosis on CTA and occlusion- will need vascular input 3. continue aspirin 81 mg 4. high normal blood pressure for now 5. PT/OT for discharge needs and Mike 6. orthostatic blood pressure q shift Supervising Physician Co-Signing Physician Notes I have seen and discussed above patient with Dr Margi Gallardo, neurology. pt seen and examined. images reviewed, no acute or subacute infarct. R ICA occluded v near occlusion, high grade narroing at origin r vert, mod narrowing l vert. spells of several minutes of things moving back and forth with mild NO otorlogic sxNo CP, palp. Sx primarily with standing, No sx with rolling in bed, cranial nerve, visual loss, double vision, unil weakness, numbnes. There is some non unidirectional instability. Exam is normal, including mike, cn, motor sensory cerebellar. nl gait mild diff with tandem, neg rhomberg mri no acute abnl, minor nonspec changes in white matter. CTA as above. Etiolg of episodes unclear and they do not clearly localize to anterior or post circ, nor peripheral labrynthopathy. Perhaps orthostasis or hypoperfusion could cause global hypoperfusion and the above sx. Check orthostasis, arrhythmia, echo. Dual antiplt tx. vascular surgery consultation appropriate. CT perfusion studies or mri spectroscopy may be helpful to identify the vascular distribution most at risk. MD Jacobo History of Present Illness Reason for Consultation: dizziness Requesting Physician: Mary Conroy MD Attending Physician: Mary Conroy MD History of Present Illness Helio is a56 year old male with PMH -DM II, nonischemic cardiomyopathy, tobacco use presented to [facility] ER 11/25/21 with c/o dizziness x 2 months. Initially dizziness lasted less than a minute. Now lasting 5-10 minutes. Describes dizziness as feeling things shifting side to side and feels off balance and nauseated. No vomiting. It has occurred with getting up or standing. has not occurred with sitting or lying in bed. His vision somewhat blurry and then takes several minutes to clear. Denies any associated headache. Denies falls. Saw PCP office and trial of meclizine without improvement. He had vertigo in past and this feels different. He felt fine when he came into the hospital but has been having these episodes for 2 months and then have been lasting longer Allergies Allergy/AdvReac Type Severity Reaction Status Date / Time Cipro Allergy Unknown Itching Verified 09/05/14 14:10 and rash ciprofloxacin Allergy Unknown Itching Verified 11/10/20 10:11 and rash Home Medications Medication Instructions Recorded Confirmed Type aspirin 81 mg tablet,delayed 81 mg PO QAM 03/15/18 11/25/21 History release levothyroxine 75 mcg tablet 75 mcg PO DAILY 03/15/18 11/25/21 History metoprolol succinate 100 mg 100 mg PO QAM 03/15/18 11/25/21 History tablet,extended release 24 hr (Toprol XL) fosinopril 10 mg tablet 5 mg PO HS tab 11/12/19 11/25/21 History montelukast 10 mg tablet 10 mg PO QAM 11/12/19 11/25/21 History nitroglycerin 0.4 mg sublingual 0.4 mg SL Q5M PRN #25 tab 11/14/19 11/25/21 Rx tablet meclizine 25 mg tablet 25 mg PO BID PRN 11/25/21 11/25/21 History Patient History Medical History CAD (coronary artery disease) Cellulitis Diabetes mellitus, type II HBP (high blood pressure) Hypothyroidism Nonischemic cardiomyopathy Renal colic Superficial thrombophlebitis Tobacco use Surgical History History of cardiac cath 2015 History of colonoscopy Family History Brother Heart disease Father Heart disease Mother Lung cancer Social History Smoking Status: Unknown if ever smoked Tobacco Type: Cigarettes Cigarettes Per Day: 1ppd x 40 years; Hx Alcohol Use: No Hx Substance Use: No Preferred Language: Chinese Communication Ability: Effective Computer Service Technician Required: No Beliefs That Will Affect Care: None Current Living Situation: Spouse Other Information That Helps Us Care for You: No Feels Safe at Home: Yes Safety Concerns: Feels Safe At This Time Assistive Devices: None Review of Systems Review of Systems: All systems reviewed & are unremarkable except as noted in HPI & below Physical Exam Physical Exam: Physical Exam: Constitutional: appearance nourished Ears, Nose, Mouth and Throat: mucous membranes moist, no injection and skin normal, eyes normal Cardiovascular: normal S-1 and S-2 and regular rate and rhythm Respiratory: clear to auscultation (CTA) and no rales, ronchi or wheeze Musculoskeletal: no peripheral edema and good distal pulses Skin: no stigmata of neurocutaneous disease noted and normal and intact Eyes: extraocular muscles intact (EOMI) and pupils equal, round and reactive to light (PERRL) NEUROLOGIC EXAMINATION: Mental status: Alert and interactive Oriented to full date and location Oriented to person Speech fluent with no evidence of aphasia Cranial Nerves smile eye brow raise symmetric Reflexes: Deep tendon reflexes were symmetrical Sensory: light cool touch Coordination: finger to nose, mike Gait/Stance: Posture normal. Gait normal: with steady with steps, base, turning, and tandem gait. Motor: Negative for pronator drift of out stretched arms with eyes closed. 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 5/5, hip flex 5/5 Results & Data ([facility]) Vital Signs (Past 12 Hours) Vital Signs Temp Pulse Pulse Pulse Resp BP BP 11/25/21 15:12 36.2 C L 54 L 16 153/80 H 11/25/21 15:06 55 L 11/25/21 14:51 58 L 16 153/78 H 11/25/21 14:37 49 L 20 148/78 H 11/25/21 14:01 61 14 164/73 H 11/25/21 12:01 57 L 18 148/70 H 11/25/21 10:30 56 L 20 139/74 11/25/21 10:23 65 20 11/25/21 10:17 56 L 20 11/25/21 10:00 36.5 C 63 20 138/66 Pulse Ox 11/25/21 15:12 98 11/25/21 15:06 11/25/21 14:51 98 11/25/21 14:37 96 11/25/21 14:01 100 11/25/21 12:01 97 11/25/21 10:30 96 11/25/21 10:23 98 11/25/21 10:17 96 11/25/21 10:00 97 Laboratory Results Abnormal lab results 07/01/22 07/01/22 Range/Units 10:17 10:17 RBC 4.64 L (4.7-6.1) M/uL Emmons # (Auto) 0.86 H (0.11-0.59) K/uL Eos # (Auto) 0.51 H (0-0.5) K/uL BUN/Creatinine Ratio 23.5 H (10-20) Glucose 113 H (70-99(Fasting)) mg/dl Diagnostic Findings CT head.CTA head/neck- There is no hemorrhage, mass effect, or evidence of acute territorial ischemia by CT criteria. Unremarkable CT angiogram of the brain. There is focal high-grade stenosis with near complete occlusion of the proximal right internal carotid artery. There is focal high-grade stenosis with near complete occlusion of the proximal right vertebral artery. There is at least moderate stenosis at the origin of the left vertebral artery. This arises directly from the thoracic aorta. MRI brain -No evidence of infarct. Sinus disease is noted bilaterally.
[2021-11-25] MEDS: ENOXAPARIN INJ 40 MG/0.4 ML SYR SQ SCH (16:54)
[2021-11-25] MEDS: INSULIN ASPART PER UNIT SC SCH ×2 (17:32→19:52)
[2021-11-25] MEDS ORDERED: lisinopril 5 MG TAB PO SCH (21:00)
[2021-11-25] MEDS ORDERED: FOSINOPRIL SODIUM 10 MG TAB PO SCH (21:00)
[2021-11-26] MEDS: INSULIN ASPART PER UNIT SC SCH ×3 (07:59→17:02)
[2021-11-26] MEDS ORDERED: METOPROLOL SUCC 50MG EXT REL TAB PO SCH (09:00)
[2021-11-26] MEDS ORDERED: CLOPIDOGREL BISULFATE 75 MG TAB PO SCH (09:00)
[2021-11-26] MEDS ORDERED: ASPIRIN 81 MG ECTAB PO SCH (09:00)
[2021-11-26] MEDS ORDERED: LEVOTHYROXINE SODIUM 75 MCG TABLET PO SCH (09:00)
[2021-11-26 09:47] LABS: Hematocrit (blood only) 41.1 % (42-52); Hemoglobin 14.1 g/dL (14.0-18.0); Mean Corpuscular Hemoglobin 31.5 pg (25-34); Mean Corpuscular Hgb Conc 34.3 g/dL (32-36); Mean Corpuscular Volume 91.7 fL (80-100); Mean Platelet Volume 9.4 fL (7.4-10.4); Platelet Count 216 K/uL (130-400); RDW Coefficient of Variation 13.6 % (11.5-14.5); RDW Standard Deviation 45.6 fL (36.4-46.3); Red Blood Count 4.48 M/uL (4.7-6.1); White Blood Count 8.93 K/uL (4.8-10.8)
[2021-11-26 10:07] LABS: BUN Creatinine Ratio 21.7 (10-20); Calcium 8.4 mg/dl (8.5-10.1); Chol HDL Ratio 5.7 (0-5); Creatinine Clr Calc Pharmacy 144.3 ml/min; Est GFR (African American) 121.3 ml/min; Est GFR (Non-African American) 104.6 ml/min
--- NOTE | 2021-11-26 11:35 | Progress Notes ---
DATE OF SERVICE: 11/26/2021. SUBJECTIVE: I am seeing the patient in followup of difficult for him to describe episodes as imbalan ce with some sense of perhaps oscillopsia or that he is moving side to side, but not in a [place]. So me having been associated with nausea. Although he has high-grade stenosis or occlusion of the right internal carotid in the origin of right vert and moderate stenosis of the origin of the left vert, i t is not entirely clear that this is post-ischemia and it is hard to localize it, although probably i n general, I might localize it to the posterior circulation. He has not had any recurrent events. R eviewing his vital signs, his heart rate has ranged from as low as 49 to a maximum of 61. OBJECTIVE: On exam, he is awake and alert. Speech and language are normal and affect appropriate. 1 42/72, 49, 16, 36.4. DATABASE: Echo has been ordered, but not yet done. LDL is 95, which is above goal, and the patient smokes. IMPRESSION AND PLAN: Difficult to describe instability with nausea. In spite of multiple episodes ov er a month, albeit brief, there is no evidence of an anterior or posterior circulation stroke. I wou ld in the interim, while we explore further, treat with dual antiplatelet therapy for 21 days with as pirin and Plavix and then switch to Plavix monotherapy. He needs to be started on a statin with a go al LDL of 70 or less. Smoking cessation is advised. Better control of blood sugar. If the patient continues to have dizziness of uncertain etiology, referral to balance clinic would be appropriate. I wonder whether or not he could be episodically bradycardic and that is causing global hypoperfusion . Would recommend some kind of ongoing cardiac monitoring for bradycardia or atrial fibrillation. If he has not seen by vascular surgery in this hospital stay, would recommend an urgent vascular surg cecil consultation within the next week or so. As said previously, it is difficult to know what he is most symptomatic for. I do not know if Javan could do a physiologic study to see if he was more p dhara to be ischemic in an anterior or posterior circulation distribution. I have no objection if the echocardiogram is performed and is unremarkable to the patient being discharged, although defer to p [facility] care regarding ongoing inpatient monitoring with regard to bradycardia. The patient should se e us in followup post discharge. Job ID: [id number]
--- NOTE | 2021-11-26 13:36 | Hospitalist Progress Note ---
Date of Service November 26, 2021 Assessment & Plan (1) Dizziness: Plan: Patient is 56 y/o M with PMH DM II, nonischemic cardiomyopathy, tobacco use presented to ER with c/o dizziness x 2 months with worsening symptoms. CTA Head and Neck: 1. There is no hemorrhage, mass effect, or evidence of acute territorial ischemia by CT criteria. 2. Unremarkable CT angiogram of the brain. 3. There is focal high-grade stenosis with near complete occlusion of the proximal right internal carotid artery. 4. There is focal high-grade stenosis with near complete occlusion of the proximal right vertebral artery. 5. There is at least moderate stenosis at the origin of the left vertebral artery. This arises directly from the thoracic aorta. Dizziness may be secondary to stenosis. DDX: TIA, CVA Telemetry to monitor for arrhythmias A1c, TSH, Lipid panel in am MRI brain pending PT/OT eval Continue aspirin Patient intolerant to statins per cardiology note. May need to discuss with cardiology further consideration for different medication. Start Plavix, initial dose given in ER Neurology consult, ER spoke with Dr Meyer who had recommended MRI brain and starting Plavix Smoking cessation recommended Vascular surgery consult, if unable to see inpatient consider outpatient referral (2) Diabetes mellitus, type II: Plan: A1c: 8.1 in 05/2021 and 7.3 in 09/2021 with diet modifications A1c in am Novolog sliding scale per protocol (3) Nonischemic cardiomyopathy: Plan: Follows with [facility] cardiology Continue metoprolol succinate, aspirin, fosinopril Pt intolerant to statins (4) Tobacco use: Plan: Smoking cessation recommended (5) Hypothyroidism: Plan: TSH pending Continue hypothyroidism DVT Prophylaxis Lovenox SQ Full Code as per discussion with pt Follows with Dr Lazo for routine care Pt was seen and care coordinated with Dr Conroy. See addendum Admission and Anticipated Discharge Date Admission Date: November 25, 2021 Results & Data Results & Data ([facility]) Vital Signs (Past 12 Hours) Vital Signs Temp Pulse Pulse Resp BP BP Pulse Ox 11/26/21 12:28 36.7 C 55 L 20 130/59 L 96 11/26/21 09:30 49 L 11/26/21 06:25 36.4 C L 54 L 16 142/72 H 96 11/26/21 03:30 36.9 C 53 L 18 121/59 L 95 Laboratory Results Short CBC 11/26/21 Range/Units 09:23 WBC 8.93 (4.8-10.8) K/uL Hgb 14.1 (14.0-18.0) g/dL Hct 41.1 L (42-52) % Plt Count 216 (130-400) K/uL BMP 11/26/21 09:23 Sodium 135 L Potassium 4.0 Chloride 106 Carbon Dioxide 24 BUN 15 Creatinine 0.69 Glucose 140 H Calcium 8.4 L Medications Administered Current Inpatient Medications Acetaminophen (Acetaminophen 325 Mg Tab) 650 mg PO Q4H PRN PRN Reason: Pain or Fever Stop: 12/25/21 14:49 Aspirin (Aspirin 81 Mg Ectab) [facility] Stop: 12/26/21 08:59 Last Admin: 11/26/21 08:34 Dose: 81 mg Documented by: Clopidogrel Bisulfate (Clopidogrel Bisulfate 75 Mg Tab) 75 mg PO QAM [facility] Stop: 12/26/21 08:59 Last Admin: 11/26/21 08:34 Dose: 75 mg Documented by: Dextrose (Dextrose 50% 50 Ml Syringe) 25 - 50 ml IV UD PRN; Protocol PRN Reason: Hypoglycemia Protocol Stop: 12/25/21 14:49 Enoxaparin Sodium (Enoxaparin Inj 40 Mg/0.4 Ml Syr) 40 mg SQ Q24H [facility] Stop: 12/25/21 14:49 Last Admin: 11/25/21 16:54 Dose: Not Given Documented by: Glucagon (Glucagon For Inj 1 Mg Vial) 1 mg SQ UD PRN; Protocol PRN Reason: Hypoglycemia Protocol Stop: 12/25/21 14:49 Glucose (Glucose 10 Tabs/Tube) 4 - 8 tabs PO UD PRN; Protocol PRN Reason: Hypoglycemia Protocol Stop: 12/25/21 14:49 Glucose (Glucose 40% Gel 15 Gm Tube) 15 - 30 gm PO UD PRN; Protocol PRN Reason: Hypoglycemia Protocol Stop: 12/25/21 14:49 Insulin Aspart (Insulin Aspart Per Unit) 0 units SC ACHS [facility] Stop: 12/25/21 16:29 Last Admin: 11/26/21 12:03 Dose: Not Given Documented by: Levothyroxine Sodium (Levothyroxine Sodium 75 Mcg Tablet) 75 mcg PO DAILY [facility] Stop: 12/26/21 08:59 Last Admin: 11/26/21 08:33 Dose: 75 mcg Documented by: Lisinopril (Lisinopril 5 Mg Tab) 5 mg PO HS [facility] Stop: 12/25/21 20:59 Last Admin: 11/25/21 19:53 Dose: Not Given Documented by: Metoprolol Succinate (Metoprolol Succ 50mg Ext Rel Tab) 100 mg PO QAM [facility] Stop: 12/26/21 08:59 Last Admin: 11/26/21 08:33 Dose: 100 mg Documented by: Miscellaneous (Carbohydrates For Hypoglycemia ) 15 - 30 gm PO UD PRN PRN Reason: Hypoglycemia Protocol Stop: 12/25/21 14:49 Miscellaneous Information (Pharmacist Discharge Med Rec Consult) 1 ea N/A UD PRN PRN Reason: Consult Stop: 12/25/21 14:49 Montelukast Sodium (Montelukast Sodium 10 Mg Tablet) 10 mg PO QPM [facility] Stop: 12/26/21 20:59 Nitroglycerin (Nitroglycerin Sl 0.4 Mg/Tab Tab) 0.4 mg SL Q5M PRN PRN Reason: chest pain Stop: 12/25/21 14:49 Ondansetron HCl (Ondansetron Inj 2 Mg/Ml 2 Ml Vial) 4 mg IV Q6H PRN PRN Reason: Nausea Stop: 12/25/21 14:49 Polyethylene Glycol (Polyethylene (Miralax) 17 Gm Pack) 17 gm PO DAILY PRN PRN Reason: Constipation Stop: 12/25/21 14:49
[2021-11-26 15:06] LABS: Estimated Average Glucose 146 mg/dl; Hemoglobin A1C 6.7 % (4.5-5.6)
[2021-11-26] MEDS ORDERED: ATORVASTATIN 40 MG TAB PO SCH (16:00)
--- NOTE | 2021-11-26 16:01 | Discharge Summary ---
Date of Service November 26, 2021 Admission HPI Per Admitting Provider Patient is 56 y/o M with PMH DM II, nonischemic cardiomyopathy, tobacco use presented to ER with c/o dizziness x 2 months. Initially dizziness lasted less than a minute. Now lasting 5-10 minutes. Describes dizziness as feeling things shifting side to side and feels off balance and nauseated. No vomiting. Patient reports has occurred with getting up or standing. has not occurred with sitting or lying in bed. States vision somewhat blurry and then takes several minutes to clear. Denies any associated headache. Denies falls. Saw PCP office and trial of meclizine without improvement. Reports vertigo in past and this feels different. Denies fever/chills, diaphoresis, vomiting, diarrhea, constipation, syncope, neck pain, CP, SOB, orthopnea, palpitations, cough, sore throat, choking, otalgia, rhinorrhea, abdominal pain, paresthesias, extremity weakness, extremity edema, rashes, urinary symptoms. Principal Diagnosis Symptomatic carotid disease Discharge Exam CONSTITUTIONAL: WNWD, vitals as above, generally well-appearing,NAD, sitting in chair, mentating normally EYES: EOMI bilaterally, PERRL, normal conjunctivae, no scleral icterus ENT: external ear and nose normal, oropharynx clear, recent post operative dental extractions lower gums NECK: trachea midline RESPIRATORY: clear to auscultation bilaterally, no crackles, rales or wheezes, normal respiratory effort CARDIOVASCULAR: regular rate and rhythm, S1 and 2 heard without murmurs, gallops or rubs, no JVD, no peripheral edema,no carotid bruits CHEST: inspection of chest was normal GASTROINTESTINAL: soft, nontender, ND, no guarding MUSCULOSKELETAL: strength 5/5 throughout, head is normocephalic and atraumatic SKIN: warm and dry, NEUROLOGIC: CN 2-12 grossly intact, no sensory deficit, normal cognition, normal speech, no tremor PSYCHIATRIC: alert cooperative and oriented to person, place and time. Discharge Data Allergies Allergy/AdvReac Type Severity Reaction Status Date / Time Cipro Allergy Unknown Itching Verified 09/05/14 14:10 and rash ciprofloxacin Allergy Unknown Itching Verified 11/10/20 10:11 and rash Consultations 11/25/21 12:59 ED Decision to Admit Stat 11/25/21 14:24 Consult Neurology Routine Consult Vascular Surgery Routine Ordered Studies Laboratory Results WBC 8.93 K/uL (4.8-10.8) 11/26/21 09:23 RBC 4.48 M/uL (4.7-6.1) L 11/26/21 09:23 Hgb 14.1 g/dL (14.0-18.0) 11/26/21 09:23 Hct 41.1 % (42-52) L 11/26/21 09:23 MCV 91.7 fL (80-100) 11/26/21 09:23 MCH 31.5 pg (25-34) 11/26/21 09: MCHC 34.3 g/dL (32-36) 11/26/21 09: RDW Std Deviation 45.6 fL (36.4-46.3) 11/26/21 09: RDW Coeff of Rhonda 13.6 % (11.5-14.5) 11/26/21 09: Plt Count 216 K/uL (130-400) 11/26/21 09: MPV 9.4 fL (7.4-10.4) 11/26/21 09:23 Immature Gran % (Auto) 0.2 % 11/25/21 10:17 Neut % (Auto) 52.7 % 11/25/21 10:17 Lymph % (Auto) 32.8 % 11/25/21 10:17 [place] % (Auto) 8.8 % 11/25/21 10:17 Eos % (Auto) 5.2 % 11/25/21 10:17 Baso % (Auto) 0.3 % 11/25/21 10:17 Neut # (Auto) 5.11 K/uL (1.4-6.5) 11/25/21 10:17 Lymph # (Auto) 3.19 K/uL (1.2-3.4) 11/25/21 10:17 [place] # (Auto) 0.86 K/uL (0.11-0.59) H 11/25/21 10:17 Eos # (Auto) 0.51 K/uL (0-0.5) H 11/25/21 10:17 Baso # (Auto) 0.03 K/uL (0-0.2) 11/25/21 10:17 Immature Gran # (Auto) 0.02 K/uL (0.00-0.02) 11/25/21 10:17 PT 10.9 Seconds (9.0-12.0) 11/25/21 10:17 INR 1.0 (0.9-1.1) 11/25/21 10:17 APTT 28.6 Seconds (21.0-31.0) 11/25/21 10:17 PTT Ratio 1.0 11/25/21 10:17 Sodium 135 mmol/L (136-145) L 11/26/21 09:23 Potassium 4.0 mmol/L (3.5-5.1) 11/26/21 09:23 Chloride 106 mmol/L (98-107) 11/26/21 09:23 Carbon Dioxide 24 mmol/L (21-32) 11/26/21 09:23 Anion Gap 5 (3-11) 11/26/21 09:23 BUN 15 mg/dl (6-23) 11/26/21 09:23 Creatinine 0.69 mg/dl (0.6-1.4) 11/26/21 09:23 Est Cr Clr Drug Dosing 144.3 ml/min 11/26/21 09:23 Est GFR ( Amer) 121.3 ml/min 11/26/21 09:23 Est GFR (Non-Af Amer) 104.6 ml/min 11/26/21 09:23 BUN/Creatinine Ratio 21.7 (10-20) H 11/26/21 09:23 Glucose 140 mg/dl (70-99(Fasting)) H 11/26/21 09:23 POC Glucose 97 mg/dl (70-99) 11/26/21 11:41 Estimat Average Glucose 146 mg/dl 11/26/21 09:23 Hemoglobin A1c 6.7 % (4.5-5.6) H 11/26/21 09:23 Calcium 8.4 mg/dl (8.5-10.1) L 11/26/21 09:23 Total Bilirubin 0.5 mg/dl (0.2-1.0) 11/25/21 10:17 AST 14 U/L (13-39) 11/25/21 10:17 ALT 15 U/L (7-52) 11/25/21 10:17 Alkaline Phosphatase 48 U/L (34-104) 11/25/21 10:17 Troponin I High Sens 5.1 pg/ml (0-20) 11/25/21 10:17 Total Protein 6.9 gm/dl (6.0-8.3) 11/25/21 10:17 Albumin 3.9 gm/dl (3.4-5.0) 11/25/21 10:17 Globulin 3.0 gm/dl (2.5-4.0) 11/25/21 10:17 Albumin/Globulin Ratio 1.3 (0.9-2) 11/25/21 10:17 Triglycerides 117 mg/dl (0-150) 11/26/21 09:23 Cholesterol 143 mg/dl (0-200) 11/26/21 09:23 LDL Cholesterol, Calc 95 mg/dl 11/26/21 09:23 VLDL Cholesterol, Calc 23 mg/dl (0-30) 11/26/21 09:23 HDL Cholesterol 25 mg/dl 11/26/21 09:23 Cholesterol/HDL Ratio 5.7 (0-5) H 11/26/21 09:23 TSH 3.179 uIu/ml (0.300-4.500) 11/25/21 13:50 SARS-CoV-2, RNA, NAAT NEGATIVE (NEGATIVE) 11/25/21 12:[address] 11/25/21 10:[address] OF THE BRAIN; CT ANGIOGRAM OF THE BRAIN; CT ANGIOGRAM OF THE NECK CLINICAL HISTORY: Gait dysfunction. Difficulty walking. COMPARISON STUDY: No priors. TECHNIQUE: Unenhanced axial CT scan of the brain is performed. Subsequently, following the IV administration of 120 of Optiray 320, CT angiogram of the head and neck was performed from the aortic arch to the vertex. Images are reviewed in the axial, sagittal, and coronal planes. 3-D MIPS images are created and assessed. IV contrast was administered without complication. All measurements were calculated based on NASCET criteria. A dose lowering technique was utilized adhering to the principles of ALARA. CT DOSE: 1229.08 mGy.cm FINDINGS: Brain parenchyma: The brain parenchyma is normal in appearance. There is no hemorrhage, mass effect, or evidence of acute territorial ischemia by CT criteria. There is no evidence of enhancing mass lesion on the angiogram phase images. The ventricles, sulci, and cisterns are normal in configuration. Barone- white matter differentiation is preserved. No extra-axial fluid collection is se en. Thoracic aorta: There is atherosclerotic calcification of the thoracic aorta. Visualized portions of the thoracic aorta are normal in caliber. The aortic arch demonstrates 4-vessel variant anatomy. Right carotid arterial system: The right common femoral artery is patent noting atherosclerotic plaque and irregularity. Advanced atherosclerotic plaque is seen the carotid bulb. There is focal high-grade stenosis with near complete occlusion of the proximal right internal carotid artery seen on axial image #258. This is located approximately 1.5 cm above the bifurcation. The remainder of the right internal carotid artery is widely patent, as is the right external carotid artery. Left carotid arterial system: The left common carotid artery is patent noting atherosclerotic plaque and irregularity. There is atherosclerotic calcification of the carotid bulb. The left internal and external carotid arteries are widely patent. Vertebral arteries: There is at least moderate stenosis at the origin of the left vertebral artery. This arises directly from the thoracic aorta as seen on axial image #36. There is focal high-grade stenosis of the proximal right vertebral artery with near complete occlusion seen on axial image #157. This is located at the level of C7-T1. Vertebral arteries are otherwise patent bilaterally noting left-sided dominance. Subclavian arteries: Widely patent bilaterally. Intracranial vasculature: There is mild atherosclerotic calcification of the cavernous carotid arteries. The [place] is developmentally complete. The internal carotid arteries are patent at the skull base, as are the anterior and middle cerebral arteries bilaterally. The vertebrobasilar system and posterior cerebral arteries are widely patent. The left vertebral artery is d ominant. There is no aneurysm, high-grade stenosis, or focal vessel cut off seen throughout the intracranial circulation. Jugular veins: Patent bilaterally. Dural sinuses: Patent. Lung apices: Partially visualized upper lobe lung parenchyma appears clear. Soft tissues: The visualized pharyngeal soft tissues are normal in appearance noting angiographic phase technique. The oropharyngeal airway appears widely patent. The thyroid gland is heterogeneous. The salivary glands are normal in appearance. No cervical lymphadenopathy is seen. Skeletal structures: The calvarium appears intact. The cervical spine is within normal limits. Orbits: The bony orbits are intact. Orbital contents are normal as visualized. Sinuses and mastoids: Mild mucosal thickening is noted in the maxillary antra. The remaining paranasal sinuses are clear. The mastoid air cells are well pneumatized. IMPRESSION: 1. There is no hemorrhage, mass effect, or evidence of acute territorial ischemia by CT criteria. 2. Unremarkable CT angiogram of the brain. 3. There is focal high-grade stenosis with near complete occlusion of the proximal right internal carotid artery. 4. There is focal high-grade stenosis with near complete occlusion of the proximal right vertebral artery. 5. There is at least moderate stenosis at the origin of the left vertebral artery. This arises directly from the thoracic aorta. 6. Additional findings as above. ACT 112: Negative or not required by law. Electronically signed by: Don Matute M.D. 11/25/2021 11:55 AM Head CTA 11/25/21 10:[address] OF THE BRAIN; CT ANGIOGRAM OF THE BRAIN; CT ANGIOGRAM OF THE NECK CLINICAL HISTORY: Gait dysfunction. Difficulty walking. COMPARISON STUDY: No priors. TECHNIQUE: Unenhanced axial CT scan of the brain is performed. Subsequently, following the IV administration of 120 of Optiray 320, CT angiogram of the head and neck was performed from the aortic arch to the vertex. Images are reviewed in the axial, sagittal, and coronal planes. 3-D MIPS images are created and assessed. IV contrast was administered without complication. All measurements were calculated based on NASCET criteria. A dose lowering technique was utilized adhering to the principles of ALARA. CT DOSE: 1229.08 mGy.cm FINDINGS: Brain parenchyma: The brain parenchyma is normal in appearance. There is no hemorrhage, mass effect, or evidence of acute territorial ischemia by CT criteria. There is no evidence of enhancing mass lesion on the angiogram phase images. The ventricles, sulci, and cisterns are normal in configuration. Barone- white matter differentiation is preserved. No extra-axial fluid collection is seen. Thoracic aorta: There is atherosclerotic calcification of the thoracic aorta. Visualized portions of the thoracic aorta are normal in caliber. The aortic arch demonstrates 4-vessel variant anatomy. Right carotid arterial system: The right common femoral artery is patent noting atherosclerotic plaque and irregularity. Advanced atherosclerotic plaque is seen the carotid bulb. There is focal high-grade stenosis with near complete occlusion of the proximal right internal carotid artery seen on axial image #258. This is located approximately 1.5 cm above the bifurcation. The remainder of the right internal carotid artery is widely patent, as is the right external carotid artery. Left carotid arterial system: The left common carotid artery is patent noting atherosclerotic plaque and irregularity. There is atherosclerotic calcification of the carotid bulb. The left internal and external carotid arteries are widely patent. Vertebral arteries: There is at least moderate stenosis at the origin of the left vertebral artery. This arises directly from the thoracic aorta as seen on axial image #36. There is focal high-grade stenosis of the proximal right vertebral artery with near complete occlusion seen on axial image #157. This is located at the level of C7-T1. Vertebral arteries are otherwise patent bilaterally noting left-sided dominance. Subclavian arteries: Widely patent bilaterally. Intracranial vasculature: There is mild atherosclerotic calcification of the cavernous carotid arteries. The [place] is developmentally complete. The internal carotid arteries are patent at the skull base, as are the anterior and middle cerebral arteries bilaterally. The vertebrobasilar system and posterior cerebral arteries are widely patent. The left vertebral artery is dominant. There is no aneurysm, high-grade stenosis, or focal vessel cut off see n throughout the intracranial circulation. Jugular veins: Patent bilaterally. Dural sinuses: Patent. Lung apices: Partially visualized upper lobe lung parenchyma appears clear. Soft tissues: The visualized pharyngeal soft tissues are normal in appearance noting angiographic phase technique. The oropharyngeal airway appears widely patent. The thyroid gland is heterogeneous. The salivary glands are normal in appearance. No cervical lymphadenopathy is seen. Skeletal structures: The calvarium appears intact. The cervical spine is within normal limits. Orbits: The bony orbits are intact. Orbital contents are normal as visualized. Sinuses and mastoids: Mild mucosal thickening is noted in the maxillary antra. The remaining paranasal sinuses are clear. The mastoid air cells are well pneumatized. IMPRESSION: 1. There is no hemorrhage, mass effect, or evidence of acute territorial ischemia by CT criteria. 2. Unremarkable CT angiogram of the brain. 3. There is focal high-grade stenosis with near complete occlusion of the proximal right internal carotid artery. 4. There is focal high-grade stenosis with near complete occlusion of the proximal right vertebral artery. 5. There is at least moderate stenosis at the origin of the left vertebral artery. This arises directly from the thoracic aorta. 6. Additional findings as above. ACT 112: Negative or not required by law. Electronically signed by: Don Matute M.D. 11/25/2021 11:55 AM Neck CTA 11/25/21 10:[address] OF THE BRAIN; CT ANGIOGRAM OF THE BRAIN; CT ANGIOGRAM OF THE NECK CLINICAL HISTORY: Gait dysfunction. Difficulty walking. COMPARISON STUDY: No priors. TECHNIQUE: Unenhanced axial CT scan of the brain is performed. Subsequently, following the IV administration of 120 of Optiray 320, CT angiogram of the head and neck was performed from the aortic arch to the vertex. Images are reviewed in the axial, sagittal, and coronal planes. 3-D MIPS images are created and assessed. IV contrast was administered without complication. All measurements were calculated based on NASCET criteria. A dose lowering technique was utilized adhering to the principles of ALARA. CT DOSE: 1229.08 mGy.cm FINDINGS: Brain parenchyma: The brain parenchyma is normal in appearance. There is no hemorrhage, mass effect, or evidence of acute territorial ischemia by CT criteria. There is no evidence of enhancing mass lesion on the angiogram phase images. The ventricles, sulci, and cisterns are normal in configuration. Barone- white matter differentiation is preserved. No extra-axial fluid collection is seen. Thoracic aorta: There is atherosclerotic calcification of the thoracic aorta. Visualized portions of the thoracic aorta are normal in caliber. The aortic arch demonstrates 4-vessel variant anatomy. Right carotid arterial system: The right common femoral artery is patent noting atherosclerotic plaque and irregularity. Advanced atherosclerotic plaque is seen the carotid bulb. There is focal high-grade stenosis with near complete occlusion of the proximal right internal carotid artery seen on axial image #258. This is located approximately 1.5 cm above the bifurcation. The remainder of the right internal carotid artery is widely patent, as is the right external carotid artery. Left carotid arterial system: The left common carotid artery is patent noting atherosclerotic plaque and irregularity. There is atherosclerotic calcification of the carotid bulb. The left internal and external carotid arteries are widely patent. Vertebral arteries: There is at least moderate stenosis at the origin of the left vertebral artery. This arises directly from the thoracic aorta as seen on axial image #36. There is focal high-grade stenosis of the proximal right vertebral artery with near complete occlusion seen on axial image #157. This is located at the level of C7-T1. Vertebral arteries are otherwise patent bilaterally noting left-sided dominance. Subclavian arteries: Widely patent bilaterally. Intracranial vasculature: There is mild atherosclerotic calcification of the cavernous carotid arteries. The [place] is developmentally complete. The internal carotid arteries are patent at the skull base, as are the anterior and middle cerebral arteries bilaterally. The vertebrobasilar system and posterior cerebral arteries are widely patent. The left vertebral artery is dominant. There is no aneurysm, high-grade stenosis, or focal vessel cut off seen throughout the intracranial circulation. Jugular veins: Patent bilaterally. Dural sinuses: Patent. Lung apices: Partially visualized upper lobe lung parenchyma appears clear. Soft tissues: The visualized pharyngeal soft tissues are normal in appearance noting angiographic phase technique. The oropharyngeal airway appears widely patent. The thyroid gland is heterogeneous. The salivary glands are normal in appearance. No cervical lymphadenopathy is seen. Skeletal structures: The calvarium appears intact. The cervical spine is within normal limits. Orbits: The bony orbits are intact. Orbital contents are normal as visualized. Sinuses and mastoids: Mild mucosal thickening is noted in the maxillary antra. The remaining paranasal sinuses are clear. The mastoid air cells are well pneumatized. IMPRESSION: 1. There is no hemorrhage, mass effect, or evidence of acute territorial ischemia by CT criteria. 2. Unremarkable CT angiogram of the brain. 3. There is focal high-grade stenosis with near complete occlusion of the proximal right internal carotid artery. 4. There is focal high-grade stenosis with near complete occlusion of the proximal right vertebral artery. 5. There is at least moderate stenosis at the origin of the left vertebral art cecil. This arises directly from the thoracic aorta. 6. Additional findings as above. ACT 112: Negative or not required by law. Electronically signed by: Don Matute M.D. 11/25/2021 11:55 AM Brain MRI 11/25/21 12:20 MR brain wo con CLINICAL HISTORY: gait instability and dizziness, R vert/ICA stenosi TECHNIQUE: Multiplanar and multisequence MR images of the brain were obtained without intravenous contrast. Comparison: None available at the time of this dictation. FINDINGS: No abnormal restricted diffusion is identified. Foci of T2 and FLAIR hyperintensity are noted in the paraventricular areas consistent with chronic small vessel ischemic disease. The ventricular system is normal in appearance. No mass is seen. There is no mass effect or midline shift. There is no evidence of acute intraparenchymal hemorrhage. No extra axial fluid collections are seen. The corpus callosum, pituitary gland, and cerebellar tonsils appear grossly unremarkable. Flow voids of the major intracranial arterial vessels are identified. Sinus disease is seen in the bilateral maxillary sinuses. IMPRESSION: No evidence of infarct. Sinus disease is noted bilaterally. ACT 112: Negative or not required by law. Electronically signed by: Adi Elizabeth M.D. 11/25/2021 2:10 PM Hospital Course (1) Symptomatic carotid artery narrowing without infarction: (2) Diabetes mellitus, type II: (3) Nonischemic cardiomyopathy: (4) Tobacco use: (5) Hypothyroidism: 56 yo M with diabetes who is an active smoker with ongoing symptoms of dizziness that are intensifying over the past few weeks. They are impairing his ability to drive, walk, etc. He was admitted and workup revealed high grade stenosis on the right internal carotid artery. He was seen by Neurology and felt to possibly have symptomatic carotid disease. No overt stroke was seen on MRI, however, Plavix was added to his home aspirin. Lipitor was started. 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 He will be transferred to [facility] for further workup and treatment by vascular surgery. There is no vascular surgery support at [facility] over the holiday weekend. He has remained asymptomatic this hospital stay. INPATIENT MEDS: Current Inpatient Medications Acetaminophen (Acetaminophen 325 Mg Tab) 650 mg PO Q4H PRN PRN Reason: Pain or Fever Stop: 12/25/21 14:49 Aspirin (Aspirin 81 Mg Ectab) 81 mg PO [facility] Stop: 12/26/21 08:59 Last Admin: 11/26/21 08:34 Dose: 81 mg Documented by: Atorvastatin Calcium (Atorvastatin 40 Mg Tab) 80 mg PO QAM [facility] Stop: 12/26/21 15:59 Clopidogrel Bisulfate (Clopidogrel Bisulfate 75 Mg Tab) 75 mg PO QAM [facility] Stop: 12/26/21 08:59 Last Admin: 11/26/21 08:34 Dose: 75 mg Documented by: Dextrose (Dextrose 50% 50 Ml Syringe) 25 - 50 ml IV UD PRN; Protocol PRN Reason: Hypoglycemia Protocol Stop: 12/25/21 14:49 Enoxaparin Sodium (Enoxaparin Inj 40 Mg/0.4 Ml Syr) 40 mg SQ Q24H [facility] Stop: 12/25/21 14:49 Last Admin: 11/25/21 16:54 Dose: Not Given Documented by: Glucagon (Glucagon For Inj 1 Mg Vial) 1 mg SQ UD PRN; Protocol PRN Reason: Hypoglycemia Protocol Stop: 12/25/21 14:49 Glucose (Glucose 10 Tabs/Tube) 4 - 8 tabs PO UD PRN; Protocol PRN Reason: Hypoglycemia Protocol Stop: 12/25/21 14:49 Glucose (Glucose 40% Gel 15 Gm Tube) 15 - 30 gm PO UD PRN; Protocol PRN Reason: Hypoglycemia Protocol Stop: 12/25/21 14:49 Insulin Aspart (Insulin Aspart Per Unit) 0 units SC ACHS [facility] Stop: 12/25/21 16:29 Last Admin: 11/26/21 12:03 Dose: Not Given Documented by: Levothyroxine Sodium (Levothyroxine Sodium 75 Mcg Tablet) 75 mcg PO DAILY [facility] Stop: 12/26/21 08:59 Last Admin: 11/26/21 08:33 Dose: 75 mcg Documented by: Lisinopril (Lisinopril 5 Mg Tab) 5 mg PO HS [facility] Stop: 12/25/21 20:59 Last Admin: 11/25/21 19:53 Dose: Not Given Documented by: Metoprolol Succinate (Metoprolol Succ 50mg Ext Rel Tab) 100 mg PO QAM [facility] Stop: 12/26/21 08:59 Last Admin: 11/26/21 08:33 Dose: 100 mg Documented by: Miscellaneous (Carbohydrates For Hypoglycemia ) 15 - 30 gm PO UD PRN PRN Reason: Hypoglycemia Protocol Stop: 12/25/21 14:49 Miscellaneous Information (Pharmacist Discharge Med Rec Consult) 1 ea N/A UD PRN PRN Reason: Consult Stop: 12/25/21 14:49 Montelukast Sodium (Montelukast Sodium 10 Mg Tablet) 10 mg PO QPM [facility] Stop: 12/26/21 20:59 Nitroglycerin (Nitroglycerin Sl 0.4 Mg/Tab Tab) 0.4 mg SL Q5M PRN PRN Reason: chest pain Stop: 12/25/21 14:49 Ondansetron HCl (Ondansetron Inj 2 Mg/Ml 2 Ml Vial) 4 mg IV Q6H PRN PRN Reason: Nausea Stop: 12/25/21 14:49 Polyethylene Glycol (Polyethylene (Miralax) 17 Gm Pack) 17 gm PO DAILY PRN PRN Reason: Constipation Stop: 12/25/21 14:49 Total Time Total Time Spent Total Time Spent (In Minutes): 60 Discharge Plan Discharge Items Patient Disposition: Transfer Acute Care Hospital Reason For Visit: DIZZINESS Discharge Diagnosis: Symptomatic carotid disease Condition on Discharge: Good Activity: Resume your previous activity Non-emergency contact: Primary Care Provider Call non-emergency contact if: you have any medication questions, your symptoms worsen, your pain is not controlled, your pain is worsening and your pain is unusual for you Follow-up/Referrals: Lucas Lazo MD [Primary Care Provider] - Diet: Low Sodium (2gm) Addtl Attending Provider Instructions: You are being transferred to [facility] for further evaluation and treatment of your symptoms. You have been placed on Plavix 75mg daily and Lipitor for vascular disease. This may be changed during your upcoming hospital stay. Any prescriptions will be provided by your discharging physician. It is recommended that you followup with your primary care physician within one week of discharge from the hospital. It was a pleasure taking care of you! Please call if you have any questions or problems. You can reach a [facility] hospitalist on duty at [facility] 24 hours a day by calling [phone]. Take care of yourself. Anabella Mccarthy DO [facility] Pending Studies at Discharge: No Stand-Alone Forms: [facility] Skilled Items Patient informed of condition?: Yes DNR: No Discharge Level of Care: Other Communicable Disease: No Discharge Prognosis: Stable Lines: None Urinary Catheter: No Medications and DC Order Prescriptions: Continued montelukast 10 mg tablet 10 mg PO QAM RF: 0 nitroglycerin 0.4 mg tablet, sublingual 0.4 mg SL Q5M PRN (Reason: chest pain) Qty: 25 RF: 5 aspirin 81 mg Tablet,Delayed Release (Dr/Ec) 81 mg PO QAM RF: 0 levothyroxine 75 mcg Tablet 75 mcg PO DAILY RF: 0 metoprolol succinate [Toprol XL] 100 mg Tablet Extended Release 24 Hr 100 mg PO QAM RF: 0 fosinopril 10 mg tablet 5 mg PO HS RF: 0 meclizine 25 mg tablet 25 mg PO BID PRN (Reason: Dizziness) RF: 0 Discharge Orders: Discharge Order (Routine); Ordered 11/26/21 Ordered By: Anabella Mccarthy Admission Data Admit Date/Time: 11/25/21 13:20 Attending Provider: Anabella Mccarthy Admit Provider: Mary Conroy I. Primary Care Provider: Lucas Lazo Other Providers: Margi Gallardo ; Joce Frias ; Mary Conroy I. Other Interventions: Discharge Summary Assessment (RN) Last Done: 11/26/21 16:32
[2021-11-26] MEDS ORDERED: STROKE PATIENT DISCHARGE STA (16:06)
[2021-11-26] MEDS: ENOXAPARIN INJ 40 MG/0.4 ML SYR SQ SCH (16:27)
[2021-11-26] MEDS ORDERED: MONTELUKAST SODIUM 10 MG TABLET PO SCH (21:00)
--- NOTE | 2021-11-26 23:00 | XCELERA ---
[id number]
== END 2021-11-26 19:40 | disposition short-term general hospital (02) ==
LOC: 2W 09:59 → ED 09:59 → SUATTDRO 13:20 → 2W 14:37

== ENCOUNTER 2024-07-04 11:36 | Inpatient (IN) ==
[2024-07-04] MEDS: METOPROLOL TARTRATE 1 MG/ML VIAL IV STA (12:12)
--- NOTE | 2024-07-04 12:13 | Emergency Department Note ---
Impression & Plan ANDRADE (dyspnea on exertion), Atrial fibrillation with rapid ventricular response, Pulmonary emboli, Elevated troponin, Leukocytosis ED Provider Note NAME: LOWELL HERNÁNDEZ AGE: 59 SEX: M : 1965 ARRIVES VIA: Walk-In INFORMANT: [Patient] ED PROVIDER(S): [Don Fox MD] CHIEF COMPLAINT: Shortness of breath HISTORY OF PRESENT ILLNESS: The patient is a 59-year-old male who has had 6 days of dry cough and shortness of breath. He notices the breathing issues mostly with exertion. The patient has not had fever, no sick contacts. He had some burning across his chest at 1 point, this seemed to come and go but now has resolved. The patient is taking all of his medications except his Eliquis. He admits he was concerned about taking this blood thinner. He is taking his metoprolol to control his heart rate and states he did take it this morning as directed. The patient went to his doctor's office today, he was found to be in rapid A- fib, he was referred to the ER. PMHx/PSHx/Social Hx: See Below PHYSICAL EXAM: GENERAL: Patient is in no acute distress. HEENT: No acute trauma, normocephalic atraumatic, mucous membranes moist, no nasal congestion. NECK: No stridor, no adenopathy, no meningismus, trachea is midline. LUNGS: A few scattered crackles heard bilaterally. Breath sounds diminished bilaterally, no wheezing. No obvious respiratory distress. HEART: Tachycardic with an irregular rhythm, no obvious murmur. ABDOMEN: Soft, nontender, no peritonitis. EXTREMITIES: No cyanosis, full range of motion of all the joints without pain or difficulty. NEUROLOGIC: Oriented x 3, no acute motor or sensory deficits, no focal weakness. SKIN: No jaundice, no diaphoresis. DIFFERENTIAL DIAGNOSIS: A-fib, anemia, CHF, fluid overload, VT, viral illness, among others. EMERGENCY DEPARTMENT PROCEDURES: MEDICAL DECISION MAKING: There is a mild leukocytosis, this could be from infection or possibly just the stress of his dyspnea. There was a normal hemoglobin and platelet count. INR was somewhat high at 1.2. No renal failure or significant electrolyte abnormality. No concerning liver enzyme elevation. The patient appeared to be in a euthyroid state. BNP was elevated consistent with potential fluid overload. ECG showed rapid atrial fibrillation, there was no obvious ST elevation. Cardiac enzyme testing x 2 is slightly elevated however, there is no significant uptrend indicating mismatch rather than true cardiac injury. Urinalysis showed some dehydration, no obvious infection. Respiratory bio fire was negative. Chest x-ray did not show pneumonia or CHF. Chest CT did show multiple bilateral pulmonary emboli with a small saddle embolus. Some potential pulmonary infarcts were also seen. The patient presented tachycardic in rapid atrial fibrillation. He was not hypoxic. He received IV Lopressor, 5 mg, this did control the heart rate. He received 1 L of IV saline to help the lower blood pressure which occurred after the administration of the Lopressor. When the findings of PE were noted, he was given a bolus of IV heparin and placed on a heparin drip. I spoke with the patient about his findings, he understands the need for a hospital stay. He is currently resting comfortably. He is not toxic or in distress. I spoke with the ICU, I spoke with cardiology, I spoke with the case management team as well as the on-call hospitalist. Admission is clearly warranted. TNK/tPA is not indicated. In short, I do believe the pulmonary emboli have causes dyspnea as well as his tachycardia. Prior/Outside records/notes reviewed: None ECG per my interpretation: Indication was shortness of breath. The ECG shows atrial fibrillation with PVCs. The rate is 127. There is baseline artifact present. No obvious ST elevation. There is an old septal/anterior infarct present. QTc was 485. Continuous Cardiac Monitoring per my interpretation: An order was placed for continuous cardiac monitoring. The monitor shows a rate of 110 with atrial fibrillation. Imaging/x-ray results per my interpretation: Chest x-ray does not show mediastinal widening, pneumonia or pneumothorax. Chronic Medical/Social conditions affecting care: History of A-fib and medication noncompliance. Care/Management discussed with: Cardiology-Dr. Cedillo. Case management and the on-call hospitalist. ICU attending-Dr. Uriarte Level of care consideration(s): After review of the information above and other included data: --I believe the patient requires escalation of care to admission Critical Care Note: I have personally spent 51 minutes of critical care time in the direct management of this patient. This includes bedside care, interpretation of diagnostic studies, and testing, discussion with consultants, patient, and family members, and other required patient management activities. This 51 minutes is in excess of all separately billable procedures. DISPOSITION: --I believe the patient requires escalation of care to admission Past Med/Surg History Problem List (Updated 07/04/24 @ 19:08 by Don Fox MD) Leukocytosis (Acute) Elevated troponin (Acute) Pulmonary emboli (Acute) Atrial fibrillation with rapid ventricular response (Acute) ANDRADE (dyspnea on exertion) (Acute) Tachycardia Permanent atrial fibrillation Bilateral pulmonary embolism Atrial fibrillation with RVR Dyslipidemia CAD (coronary artery disease) 30% proximal LAD stenosis, 30% LCx stenosis on cath 09/29/2014 Symptomatic carotid artery narrowing without infarction History of colonoscopy Nonischemic cardiomyopathy Medical History Obesity Superficial thrombophlebitis Hypothyroidism Dizziness Diabetes mellitus, type II Tobacco use Nonischemic cardiomyopathy Surgical History History of cardiac cath 2014 Family History Brother Heart disease Father Heart disease Mother Lung cancer Social History Smoking Status: Current every day smoker Tobacco Type: Cigarettes packs per day: 0.5; Cigarettes Per Day: 1ppd x 40 years; Hx Alcohol Use: No Hx Substance Use: No Preferred Language: Czech Communication Ability: Effective Nut Packer Required: No Beliefs That Will Affect Care: None Current Living Situation: Spouse Feels Safe at Home: Yes Assistive Devices: None Allergies Allergies Allergy/AdvReac Type Severity Reaction Status Date / Time Cipro Allergy Unknown Itching Verified 09/05/14 14:10 and rash ciprofloxacin Allergy Unknown Itching Verified 03/21/24 13:58 and rash Home Meds Home Medications Medication Instructions Recorded Confirmed levothyroxine 75 mcg tablet 75 mcg PO DAILY 03/15/18 07/04/24 metoprolol succinate 100 mg 100 mg PO QAM 03/15/18 07/04/24 tablet,extended release 24 hr (Toprol XL) montelukast 10 mg tablet 10 mg PO QAM 11/12/19 07/04/24 cetirizine 10 mg tablet (Zyrtec) 10 mg PO DAILY 01/12/22 07/04/24 aspirin 81 mg tablet,delayed 81 mg PO DAILY 01/04/23 07/04/24 release (Adult Low Dose Aspirin) Previous Rx's Medication Instructions Recorded nitroglycerin 0.4 mg sublingual 0.4 mg sublingual Q5M PRN chest 11/14/19 tablet pain #25 tabs famotidine 20 mg tablet 20 mg PO BID #180 tabs 08/07/23 sacubitril 97 mg-valsartan 103 mg 1 tab PO BID #180 tabs 02/20/24 tablet (Entresto) apixaban 5 mg tablet (Eliquis) 5 mg PO BID #180 tabs 03/21/24 Results & Data (ED) Vital Signs Vital Signs - 24 hr 07/04/24 11:42 07/04/24 12:00 07/04/24 12:03 Temperature 36.7 C Temperature Source Temporal Artery Scan Pulse Rate 110 H Pulse Rate [Apical] 113 H Pulse Rate from SpO2 Sensor Pulse Rhythm [Apical] Irregular Respiratory Rate 18 22 Respiratory Effort / Characteristics Non-Labored Spontaneous Non-Labored Spontaneous Respiratory Depth Normal Normal Respiratory Pattern Regular Blood Pressure 124/73 Blood Pressure [Right Arm] 106/82 Blood Pressure Mean 90 Blood Pressure Mean [Right Arm] 90 Blood Pressure Position [Right Arm] Pulse Oximetry 94 95 Oxygen Delivery Method Room Air Room Air Room Air Sepsis Recent Fever Within 48 Hours No Sepsis New/Unexplained Change in Mental Status No Sepsis Action Taken by Nursing No Action Required 07/04/24 12:12 07/04/24 12:12 07/04/24 12:31 Temperature Temperature Source Pulse Rate 120 H 118 H Pulse Rate [Apical] 101 H Pulse Rate from SpO2 Sensor Pulse Rhythm [Apical] Irregular Respiratory Rate 24 Respiratory Effort / Characteristics Non-Labored Spontaneous Respiratory Depth Normal Respiratory Pattern Regular Blood Pressure 106/82 Blood Pressure [Right Arm] 89/70 L Blood Pressure Mean Blood Pressure Mean [Right Arm] 76 Blood Pressure Position [Right Arm] Semi-fowlers Pulse Oximetry 92 Oxygen Delivery Method Room Air Sepsis Recent Fever Within 48 Hours Sepsis New/Unexplained Change in Mental Status Sepsis Action Taken by Nursing 07/04/24 12:44 07/04/24 12:57 07/04/24 13:21 Temperature Temperature Source Pulse Rate Pulse Rate [Apical] 90 92 H 100 H Pulse Rate from SpO2 Sensor Pulse Rhythm [Apical] Irregular Irregular Respiratory Rate 20 22 22 Respiratory Effort / Characteristics Non-Labored Spontaneous Non-Labored Spontaneous Non-Labored Spontaneous Respiratory Depth Normal Normal Normal Respiratory Pattern Regular Regular Regular Blood Pressure Blood Pressure [Right Arm] 95/58 L 83/61 L 94/78 L Blood Pressure Mean Blood Pressure Mean [Right Arm] 70 68 83 Blood Pressure Position [Right Arm] Pulse Oximetry 95 95 97 Oxygen Delivery Method Room Air Room Air Room Air Sepsis Recent Fever Within 48 Hours Sepsis New/Unexplained Change in Mental Status Sepsis Action Taken by Nursing 07/04/24 14:14 07/04/24 15:03 07/04/24 15:24 Temperature Temperature Source Pulse Rate 109 H 101 H Pulse Rate [Apical] 96 H Pulse Rate from SpO2 Sensor 94 H 77 Pulse Rhythm [Apical] Respiratory Rate 20 23 23 Respiratory Effort / Characteristics Non-Labored Spontaneous Respiratory Depth Normal Respiratory Pattern Regular Blood Pressure Blood Pressure [Right Arm] 105/88 Blood Pressure Mean Blood Pressure Mean [Right Arm] 93 Blood Pressure Position [Right Arm] Pulse Oximetry 94 94 94 Oxygen Delivery Method Room Air Sepsis Recent Fever Within 48 Hours Sepsis New/Unexplained Change in Mental Status Sepsis Action Taken by Nursing 07/04/24 15:30 07/04/24 15:42 07/04/24 15:42 Temperature Temperature Source Pulse Rate 95 H 100 H Pulse Rate [Apical] Pulse Rate from SpO2 Sensor 94 H 88 Pulse Rhythm [Apical] Respiratory Rate 22 24 Respiratory Effort / Characteristics Respiratory Depth Respiratory Pattern Blood Pressure 112/79 Blood Pressure [Right Arm] Blood Pressure Mean 85 Blood Pressure Mean [Right Arm] Blood Pressure Position [Right Arm] Pulse Oximetry 94 94 Oxygen Delivery Method Sepsis Recent Fever Within 48 Hours Sepsis New/Unexplained Change in Mental Status Sepsis Action Taken by Nursing 07/04/24 15:42 07/04/24 15:44 07/04/24 15:45 Temperature Temperature Source Pulse Rate 97 H 109 H Pulse Rate [Apical] Pulse Rate from SpO2 Sensor 93 H Pulse Rhythm [Apical] Respiratory Rate 21 Respiratory Effort / Characteristics Respiratory Depth Respiratory Pattern Blood Pressure 112/79 112/79 Blood Pressure [Right Arm] Blood Pressure Mean 85 Blood Pressure Mean [Right Arm] Blood Pressure Position [Right Arm] Pulse Oximetry 95 Oxygen Delivery Method Sepsis Recent Fever Within 48 Hours Sepsis New/Unexplained Change in Mental Status Sepsis Action Taken by Nursing 07/04/24 15:45 07/04/24 15:51 07/04/24 16:00 Temperature Temperature Source Pulse Rate 113 H Pulse Rate [Apical] 102 H Pulse Rate from SpO2 Sensor 108 H Pulse Rhythm [Apical] Respiratory Rate 29 H 20 Respiratory Effort / Characteristics Respiratory Depth Normal Respiratory Pattern Blood Pressure 129/74 Blood Pressure [Right Arm] 116/91 Blood Pressure Mean 106 Blood Pressure Mean [Right Arm] 99 Blood Pressure Position [Right Arm] Pulse Oximetry 93 Oxygen Delivery Method Sepsis Recent Fever Within 48 Hours Sepsis New/Unexplained Change in Mental Status Sepsis Action Taken by Nursing 07/04/24 16:00 07/04/24 16:01 07/04/24 16:15 Temperature Temperature Source Pulse Rate 105 H 108 H Pulse Rate [Apical] Pulse Rate from SpO2 Sensor 90 95 H Pulse Rhythm [Apical] Respiratory Rate 34 H 26 H Respiratory Effort / Characteristics Respiratory Depth Respiratory Pattern Blood Pressure 116/91 Blood Pressure [Right Arm] Blood Pressure Mean 99 Blood Pressure Mean [Right Arm] Blood Pressure Position [Right Arm] Pulse Oximetry 97 93 Oxygen Delivery Method Sepsis Recent Fever Within 48 Hours Sepsis New/Unexplained Change in Mental Status Sepsis Action Taken by Nursing 07/04/24 16:16 07/04/24 16:17 07/04/24 16:21 Temperature Temperature Source Pulse Rate 114 H 108 H Pulse Rate [Apical] Pulse Rate from SpO2 Sensor 94 H Pulse Rhythm [Apical] Respiratory Rate 24 Respiratory Effort / Characteristics Respiratory Depth Respiratory Pattern Blood Pressure 138/87 Blood Pressure [Right Arm] Blood Pressure Mean 105 Blood Pressure Mean [Right Arm] Blood Pressure Position [Right Arm] Pulse Oximetry 95 Oxygen Delivery Method Sepsis Recent Fever Within 48 Hours Sepsis New/Unexplained Change in Mental Status Sepsis Action Taken by Skilled Nursing Medications Current Medication List: was personally reviewed by me Laboratory Data Attestation: I reviewed the patient's lab results. 07/04/24 11:57 07/04/24 13:05 Lab Results 07/04/24 07/04/24 07/04/24 Range/Units 11:49 11:57 13:05 WBC 13.98 H (4.8-10.8) K/ul RBC 4.75 (4.70-6.10) M/uL Hgb 15.1 (14.0-18.0) g/dl Hct 44.2 (42.0-52.0) % MCV 93.1 (80.0-100.0) fL MCH 31.8 (25.0-34.0) pg MCHC 34.2 (32.0-36.0) g/dL RDW Std Deviation 49.1 H (36.4-46.3) fL RDW Coeff of Rhonda 14.3 (11.5-14.5) % Plt Count 179 (130-400) K/uL MPV 9.9 (9.4-12.4) fL Immature Gran % (Auto) 0.4 % Neut % (Auto) 67.3 % Lymph % (Auto) 24.5 % [place] % (Auto) 6.7 % Eos % (Auto) 0.7 % Baso % (Auto) 0.4 % Neut # (Auto) 9.42 H (1.40-6.50) K/uL Lymph # (Auto) 3.43 H (1.20-3.40) K/uL [place] # (Auto) 0.93 H (0.11-0.59) K/uL Eos # (Auto) 0.10 (0.00-0.50) K/uL Baso # (Auto) 0.05 (0.00-0.20) K/uL Immature Gran # (Auto) 0.05 (0.01-0.20) K/uL PT Cancelled 12.4 H INR Cancelled 1.2 H APTT Cancelled 27 PTT Ratio Cancelled 1.0 Sodium Cancelled 136 Potassium Cancelled 4.3 Chloride Cancelled 107 Carbon Dioxide Cancelled 20 L Anion Gap Cancelled 9 BUN Cancelled 29 H Creatinine Cancelled 0.96 Est Cr Clr Drug Dosing Cancelled 100.5 eGFR Cancelled 89.93 BUN/Creatinine Ratio Cancelled 30.2 H Glucose Cancelled 144 H Calcium Cancelled 9.1 Magnesium Cancelled 1.9 Total Bilirubin Cancelled 0.8 AST Cancelled 21 ALT Cancelled 27 Alkaline Phosphatase Cancelled 52 Troponin I High Sens Cancelled 26.1 H B-Natriuretic Peptide (0-100) pg/ml Total Protein Cancelled 6.5 Albumin Cancelled 3.6 Globulin Cancelled 2.9 Albumin/Globulin Ratio Cancelled 1.2 TSH Cancelled 4.077 Urine Color Dark Yellow Urine Appearance Cloudy A (Clear) Urine pH 5.0 (4.5-7.5) Ur Specific [place] 1.035 H (1.000-1.030) Urine Protein 2+ H (Negative) Urine Glucose (UA) Negative (Negative) Urine Ketones Trace H (Negative) Urine Blood Negative (Negative) Urine Nitrite Negative (Negative) Urine Bilirubin 1+ H (Negative) Urine Urobilinogen Negative (Negative) Ur Leukocyte Esterase Negative (Negative) Urine WBC (Auto) 0-5 (0-5) /hpf Urine RBC (Auto) 0-2 (0-2) /hpf U Hyaline Cast (Auto) >20 H (0-2) /lpf U Epithel Cells (Auto) 3-5 H (0-2) /hpf Urine Bacteria (Auto) None Seen (None Seen) Urine Mucus Present A (None Prsent) Adenovirus (PCR) Not Detected (NotDetected) B. pertussis DNA (PCR) Not Detected (NotDetected) B.parapertussis DNA PCR Not Detected (NotDetected) C. pneumoniae DNA (PCR) Not Detected (NotDetected) Coronavirus OC43 (PCR) Not Detected (NotDetected) Coronavirus HKU1 (PCR) Not Detected (NotDetected) Coronavirus 229E (PCR) Not Detected (NotDetected) SARS-CoV-2 (PCR) Not Detected (NotDetected) Coronavirus NL63 (PCR) Not Detected (NotDetected) Human Metapneumovir PCR Not Detected (NotDetected) Influenza Type A (PCR) Not Detected (NotDetected) Influenza Type B (PCR) Not Detected (NotDetected) M. pneumoniae (PCR) Not Detected (NotDetected) Parainfluenza 1 (PCR) Not Detected (NotDetected) Parainfluenza 2 (PCR) Not Detected (NotDetected) Parainfluenza 3 (PCR) Not Detected (NotDetected) Parainfluenza 4 (PCR) Not Detected (NotDetected) RSV (PCR) Not Detected (NotDetected) Entero/Rhino (PCR) Not Detected (NotDetected) 07/04/24 Range/Units 16:05 WBC (4.8-10.8) K/ul RBC (4.70-6.10) M/uL Hgb (14.0-18.0) g/dl Hct (42.0-52.0) % MCV (80.0-100.0) fL MCH (25.0-34.0) pg MCHC (32.0-36.0) g/dL RDW Std Deviation (36.4-46.3) fL RDW Coeff of Rhonda (11.5-14.5) % Plt Count (130-400) K/uL MPV (9.4-12.4) fL Immature Gran % (Auto) % Neut % (Auto) % Lymph % (Auto) % [place] % (Auto) % Eos % (Auto) % Baso % (Auto) % Neut # (Auto) (1.40-6.50) K/uL Lymph # (Auto) (1.20-3.40) K/uL [place] # (Auto) (0.11-0.59) K/uL Eos # (Auto) (0.00-0.50) K/uL Baso # (Auto) (0.00-0.20) K/uL Immature Gran # (Auto) (0.01-0.20) K/uL PT INR APTT PTT Ratio Sodium Potassium Chloride Carbon Dioxide Anion Gap BUN Creatinine Est Cr Clr Drug Dosing eGFR BUN/Creatinine Ratio Glucose Calcium Magnesium Total Bilirubin AST ALT Alkaline Phosphatase Troponin I High Sens 23.7 H B-Natriuretic Peptide 1314 H (0-100) pg/ml Total Protein Albumin Globulin Albumin/Globulin Ratio TSH Urine Color Urine Appearance (Clear) Urine pH (4.5-7.5) Ur Specific [place] (1.000-1.030) Urine Protein (Negative) Urine Glucose (UA) (Negative) Urine Ketones (Negative) Urine Blood (Negative) Urine Nitrite (Negative) Urine Bilirubin (Negative) Urine Urobilinogen (Negative) Ur Leukocyte Esterase (Negative) Urine WBC (Auto) (0-5) /hpf Urine RBC (Auto) (0-2) /hpf U Hyaline Cast (Auto) (0-2) /lpf U Epithel Cells (Auto) (0-2) /hpf Urine Bacteria (Auto) (None Seen) Urine Mucus (None Prsent) Adenovirus (PCR) (NotDetected) B. pertussis DNA (PCR) (NotDetected) B.parapertussis DNA PCR (NotDetected) C. pneumoniae DNA (PCR) (NotDetected) Coronavirus OC43 (PCR) (NotDetected) Coronavirus HKU1 (PCR) (NotDetected) Coronavirus 229E (PCR) (NotDetected) SARS-CoV-2 (PCR) (NotDetected) Coronavirus NL63 (PCR) (NotDetected) Human Metapneumovir PCR (NotDetected) Influenza Type A (PCR) (NotDetected) Influenza Type B (PCR) (NotDetected) M. pneumoniae (PCR) (NotDetected) Parainfluenza 1 (PCR) (NotDetected) Parainfluenza 2 (PCR) (NotDetected) Parainfluenza 3 (PCR) (NotDetected) Parainfluenza 4 (PCR) (NotDetected) RSV (PCR) (NotDetected) Entero/Rhino (PCR) (NotDetected) Administered Medications Heparin Sodium/Dextrose (Heparin 49786 Unit/500 Ml) 25,000 units in 500 mls @ 32 mls/hr IV .[id number] [facility]; Protocol Stop: 08/03/24 15:29 Last Titration: 07/04/24 18:58 Dose: 1,600 units/hr, 32 mls/hr Documented By: YUSRA Co-signed By: PENG Admin: 07/04/24 15:45 Dose: 1,600 units/hr, 32 mls/hr Documented By: MACARIO Co-signed By: JHOANA Discontinued Medications Heparin Sodium (Porcine) (Heparin Sod (Porcine) 1000 Unit/Ml) 7,000 units IV NOW ONE Stop: 07/04/24 15:31 Last Admin: 07/04/24 15:45 Dose: 7,000 units Documented By: MACARIO Co-signed By: JHOANA Sodium Chloride (Nss) 500 mls @ 999 mls/hr IV .Q31M ONE Stop: 07/04/24 13:21 Last Infusion: 07/04/24 13:29 Dose: Infused Documented By: Admin: 07/04/24 12:55 Dose: 999 mls/hr Documented By: BARRY Sodium Chloride (Nss) 500 mls @ 999 mls/hr IV .Q31M ONE Stop: 07/04/24 13:45 Last Infusion: 07/04/24 14:04 Dose: Infused Documented By: Admin: 07/04/24 13:33 Dose: 999 mls/hr Documented By: CHRISTOPHER Ioversol (Optiray 320 125ml) 119 ml IV ONCE ONE Stop: 07/04/24 14:30 Last Admin: 07/04/24 14:29 Dose: 119 ml Documented By: PATRICIA Metoprolol Tartrate (Metoprolol Tartrate 1 Mg/Ml Vial) 5 mg IV NOW STA Stop: 07/04/24 12:08 Last Admin: 07/04/24 12:12 Dose: 5 mg Documented By: CHRISTOPHER Imaging Data Radiologist's Impression: Chest X-Ray 07/04/24 11:47 XR chest 1V portable CLINICAL HISTORY: Chest pain, nonspecific COMPARISON STUDY: 05/02/2024 FINDINGS: There is mild cardiomegaly without pulmonary vascular congestion. No effusion, consolidation, or pneumothorax. IMPRESSION: No acute findings. ACT 112: Negative or not required by law. Electronically signed by: Myles Cuenca M.D. 07/04/2024 12:47 PM Chest CTA 07/04/24 13:15 CT ANGIOGRAPHY OF THE CHEST, PULMONARY EMBOLUS PROTOCOL CLINICAL HISTORY: Chest pain. Evaluate for pulmonary embolus. COMPARISON STUDY: Chest CT May 02, 2024. Chest radiograph performed earlier today. TECHNIQUE: Following IV administration of 119 mL of Optiray, helical axial images of the chest were obtained utilizing the pulmonary embolus protocol. Maximal intensity projections and sagittal and coronal reformats were viewed on an independent 3D workstation. IV contrast was administered without complication. Automated exposure control was utilized for the study. A dose lowering technique was utilized adhering to the principles of ALARA. CT DOSE: 993.82 mGy.cm FINDINGS: Extensive bilateral pulmonary emboli are present. Specifically, emboli are noted within the distal right and left pulmonary arteries with a small saddle embolus. Numerous additional emboli are present. There is mild dilatation of the right heart chambers. No pericardial effusion. Heart is mildly enlarged. There is extensive coronary artery calcification. No thoracic aortic dissection is present. There is a small right pleural effusion. No pneumothorax. Mild right lower lobe groundglass opacity is present. A few subpleural opacities within the left lung measure up to 1.7 cm. There is no thoracic lymphadenopathy. IVC and hepatic veins are dilated with reflux of contrast. IMPRESSION: 1. Extensive bilateral pulmonary emboli including a small saddle embolus. Dilatation of the right heart chambers raises the possibility of right heart strain. Findings conveyed to Dr. Feese at time of dictation. 2. Trace right pleural effusion. 3. Subpleural right lower lobe ground glass opacity. The appearance favors atelectasis however an underlying pulmonary infarct may be present. 4. A few small subpleural opacities within the left lung. These could reflect small pulmonary infarcts or an infectious process. Chest CT in 3 months to ensure resolution is recommended. ACT 112: Negative or not required by law. Electronically signed by: Jony Harper M.D. 07/04/2024 3:01 PM Discharge Plan Visit Data Chief Complaint: Shortness of Breath/Dyspnea Stated Complaint: SOB, DIZZY, DOC REF ED Provider: Don Fox Discharge Problem: ANDRADE (dyspnea on exertion), Atrial fibrillation with rapid ventricular response, Pulmonary emboli, Elevated troponin, Leukocytosis Patient Disposition: Admitted As Inpatient Condition: Serious Discharge Instructions Interventions: ED Discharge Assessment Last Done: 07/04/24 17:20 Discharge Problem: Pulmonary emboli Qualifiers: Pulmonary embolism type: unspecified Chronicity: acute Acute cor pulmonale presence: with acute cor pulmonale Qualified Code(s): I26.09 - Other pulmonary embolism with acute cor pulmonale Leukocytosis Qualifiers: Leukocytosis type: unspecified Qualified Code(s): D72.829 - Elevated white blood cell count, unspecified
[2024-07-04 12:40] LABS: Basophils # (auto) 0.05 K/uL (0.00-0.20); Basophils % (auto) 0.4 %; Eosinophils % (auto) 0.7 %; Hematocrit (blood only) 44.2 % (42.0-52.0); Hemoglobin 15.1 g/dl (14.0-18.0); Immature Granulocytes # (auto) 0.05 K/uL (0.01-0.20); Immature Granulocytes % (auto) 0.4 %; Lymphocytes # (auto) 3.43 K/uL (1.20-3.40); Lymphocytes % (auto) 24.5 %; Mean Corpuscular Hemoglobin 31.8 pg (25.0-34.0); Mean Corpuscular Hgb Conc 34.2 g/dL (32.0-36.0); Mean Corpuscular Volume 93.1 fL (80.0-100.0); Mean Platelet Volume 9.9 fL (9.4-12.4); Monocytes # (auto) 0.93 K/uL (0.11-0.59); Monocytes % (auto) 6.7 %; Neutrophils # (auto) 9.42 K/uL (1.40-6.50); Neutrophils % (auto) 67.3 %; Platelet Count 179 K/uL (130-400); RDW Coefficient of Variation 14.3 % (11.5-14.5); RDW Standard Deviation 49.1 fL (36.4-46.3); Red Blood Count 4.75 M/uL (4.70-6.10); White Blood Count 13.98 K/ul (4.8-10.8)
--- NOTE | 2024-07-04 12:48 | XRay Report ---
XR chest 1V portable CLINICAL HISTORY: Chest pain, nonspecific COMPARISON STUDY: 05/02/2024 FINDINGS: There is mild cardiomegaly without pulmonary vascular congestion. No effusion, consolidatio n, or pneumothorax. IMPRESSION: No acute findings. ACT 112: Negative or not required by law. Electronically signed by: Myles Cuenca M.D. 07/04/2024 12:47 PM
[2024-07-04] MEDS: SODIUM CHLORIDE 0.9% 500 ML IV ONE ×2 (12:55→13:33)
[2024-07-04 13:10] LABS: Adenovirus PCR Not Detected (NotDetected); Bordetella parapertussis PCR Not Detected (NotDetected); Bordetella pertussis PCR Not Detected (NotDetected); Chlamydia pneumoniae PCR Not Detected (NotDetected); Coronavirus 229E PCR Not Detected (NotDetected); Coronavirus CoV-2 (COVID19)PCR Not Detected (NotDetected); Coronavirus HKU1 PCR Not Detected (NotDetected); Coronavirus NL63 PCR Not Detected (NotDetected); Coronavirus OC43PCR Not Detected (NotDetected); Human Metapneumovirus PCR Not Detected (NotDetected); Influenza A PCR Not Detected (NotDetected); Influenza B PCR Not Detected (NotDetected); Mycoplasma pneumoniae PCR Not Detected (NotDetected); Parainfluenza Virus 1 PCR Not Detected (NotDetected); Parainfluenza Virus 2 PCR Not Detected (NotDetected); Parainfluenza Virus 3 PCR Not Detected (NotDetected); Parainfluenza Virus 4 PCR Not Detected (NotDetected); Respiratory Syncytial VirusPCR Not Detected (NotDetected); Rhinovirus/Enterovirus PCR Not Detected (NotDetected)
[2024-07-04 13:11] LABS: Appearance Urine Cloudy (Clear); Bacteria Urine Automated None Seen (None Seen); Bilirubin Urine 1+ (Negative); Blood Urine Negative (Negative); Cast Urine Automated >20 /lpf (0-2); Color Urine Dark Yellow; Glucose Urine UA Negative (Negative); Ketones Urine Trace (Negative); Leukocyte Esterase Urine Negative (Negative); Mucus Urine Present (None Prsent); Nitrite Urine Negative (Negative); Protein Urine 2+ (Negative); RBC Urine Automated 0-2 /hpf (0-2); Specific Gravity Urine 1.035 (1.000-1.030); Urobilinogen Urine Negative (Negative); WBC Urine Automated 0-5 /hpf (0-5)
--- NOTE | 2024-07-04 13:43 | Electrocardiogram Report ---
Test Reason : Blood Pressure : */* mmHG Vent. Rate : 127 BPM Atrial Rate : * BPM P-R Int : * ms QRS Dur : 90 ms QT Int : 334 ms P-R-T Axes : * 73 -43 degrees QTcB Int : 485 ms Atrial fibrillation with rapid ventricular response with premature ventricular or aberrantly conducte d complexes Old Anterior infarct (cited on or before 21-Mar-2024) Abnormal ECG When compared with ECG of 06-May-2024 14:56, Vent. rate has increased by 52 bpm Confirmed by Jerardo Cedillo ([id number]) on 07/04/2024 1:43:02 PM Referred By: Confirmed By: Jerardo Cedillo
[2024-07-04 13:46] LABS: INR 1.2 (0.9-1.1); Partial Thromboplastin Time 27 Seconds (21-31); Prothrombin Time 12.4 Seconds (9.0-12.0)
[2024-07-04 14:16] LABS: Albumin Globulin Ratio 1.2 (0.9-2); Albumin Level 3.6 gm/dl (3.4-5.0); BUN Creatinine Ratio 30.2 (10-20); Bilirubin,Total 0.8 mg/dl (0.2-1.0); Calcium 9.1 mg/dl (8.6-10.3); Creatinine Clr Calc Pharmacy 100.5 ml/min; Globulin 2.9 gm/dl (2.5-4.0); Magnesium 1.9 mg/dl (1.7-2.4); Potassium 4.3 mmol/L (3.5-5.1); Total Protein 6.5 gm/dl (6.0-8.3)
[2024-07-04 14:22] LABS: Troponin I High Sensitivity 26.1 pg/ml (0-20)
[2024-07-04] MEDS: OPTIRAY 320 125ml IV ONE (14:29)
[2024-07-04 14:32] LABS: Thyroid Stimulating Hormone 4.077 uIu/ml (0.300-4.500)
--- NOTE | 2024-07-04 15:03 | CT Scan Report ---
CT ANGIOGRAPHY OF THE CHEST, PULMONARY EMBOLUS PROTOCOL CLINICAL HISTORY: Chest pain. Evaluate for pulmonary embolus. COMPARISON STUDY: Chest CT May 02, 2024. Chest radiograph performed earlier today. TECHNIQUE: Following IV administration of 119 mL of Optiray, helical axial images of the chest were o btained utilizing the pulmonary embolus protocol. Maximal intensity projections and sagittal and cor onal reformats were viewed on an independent 3D workstation. IV contrast was administered without co mplication. Automated exposure control was utilized for the study. A dose lowering technique was ut ilized adhering to the principles of ALARA. CT DOSE: 993.82 mGy.cm FINDINGS: Extensive bilateral pulmonary emboli are present. Specifically, emboli are noted within th e distal right and left pulmonary arteries with a small saddle embolus. Numerous additional emboli ar e present. There is mild dilatation of the right heart chambers. No pericardial effusion. Heart is mi ldly enlarged. There is extensive coronary artery calcification. No thoracic aortic dissection is pre sent. There is a small right pleural effusion. No pneumothorax. Mild right lower lobe groundglass opa city is present. A few subpleural opacities within the left lung measure up to 1.7 cm. There is no th oracic lymphadenopathy. IVC and hepatic veins are dilated with reflux of contrast. IMPRESSION: 1. Extensive bilateral pulmonary emboli including a small saddle embolus. Dilatation of the right hea rt chambers raises the possibility of right heart strain. Findings conveyed to Dr. Fox at time of d ictation. 2. Trace right pleural effusion. 3. Subpleural right lower lobe ground glass opacity. The appearance favors atelectasis however an und erlying pulmonary infarct may be present. 4. A few small subpleural opacities within the left lung. These could reflect small pulmonary infarct s or an infectious process. Chest CT in 3 months to ensure resolution is recommended. ACT 112: Negative or not required by law. Electronically signed by: Jony Harper M.D. 07/04/2024 3:01 PM
[2024-07-04] MEDS ORDERED: Heparin IV Adult Wt-Based Standard w/ INITIAL Bolus Protocol IV STA (15:07)
[2024-07-04] MEDS ORDERED: HEPARIN SOD (PORCINE) 1000 UNIT/ML IV ONE (15:22)
[2024-07-04] MEDS: HEPARIN 25000 UNIT/500 ML D5W 25,000 UNITS/500 ML BAG IV SCH (15:45)
[2024-07-04] MEDS: HEPARIN SOD (PORCINE) 1000 UNIT/ML IV ONE (15:45)
--- NOTE | 2024-07-04 15:55 | History & Physical Report ---
Date of Service July 04, 2024 Assessment & Plan (1) Atrial fibrillation with RVR: (2) Tobacco use: (3) Diabetes mellitus, type II: (4) CAD (coronary artery disease): (5) Dyslipidemia: (6) Hypothyroidism: Plan This is a 59yo M with a PMH of atrial fibrillation non-compliant with anticoagulation, Nonischemic cardiomyopathy (EF of 40-45% in February 2024), diet-controlled DM II, tobacco use disorder, CAD, dyslipidemia, HTN and other medical problems listed below who presents with dyspnea on exertion and elevated HR and was found to have A fib with RVR in setting of extensive bilateral pulmonary emboli. A fib with RVR Diagnosed in Feb 2024, follows with [facility] Prescribed Eliquis back in Feb, has not started EKG in outpatient setting with HR in 130s, given 5mg IV lopressor in ED and HR improved to 110s BNP 1,314, HS troponin 26.1 -> 23.7 Continue home Toprol 100mg PO daily for now, adding PRN IV lopressor for HR >130 [facility] cardiology consulted Extensive PEs In setting of known a fib, non-compliant with eliquis BP normotensive, HR elevated as above, O2 saturation 95% on RA but becomes lightheaded and dyspneic with movement Chest CTA with 1. Extensive bilateral pulmonary emboli including a small saddle embolus. Dilatation of the right heart chambers raises the possibility of right heart strain. Findings conveyed to Dr. Fox at time of dictation. 2. Trace right pleural effusion. 3. Subpleural right lower lobe ground glass opacity. The appearance favors atelectasis however an underlying pulmonary infarct may be present. 4. A few small subpleural opacities within the left lung. These could reflect small pulmonary infarcts or an infectious process. Chest CT in 3 months to ensure resolution is recommended. Discussed with Dr. Uriarte - does not feel TPA is indicated at this time but recommends ICU for further monitoring given extensive clot burden Continue IV heparin 2D echo Non-ischemic cardiomyopathy 2D echo from Feb 2024 with EF 40-45%, mid-mod global hypokinesis of LV Repeat echo as above Home regimen includes Toprol, Entresto Leukocytosis Likely reactive 2/2 conditions above Afebrile, resp viral panel negative Monitor with CBC DM II A1c 6.9 in Feb, repeat in AM Diet controlled at home SSI while in-patient [facility] AC HS CAD Known disease, (30% LAD stenosis, 30% LCx stenosis on Cath 09/29/2014) Continue aspirin, Toprol, statin intolerance documented Hypothyroidism Continue levothyroxine DVT Ppx: IV heparin Code status: FULL PCP: Violet Dispo: Admit to ICU Patient seen in collaboration with Dr. Rodriguez. Please see addendum. I spent a total of 75 minutes coordinating, documenting, and providing care for this patient excluding time spent in the performance of separately billed services or time spent by another provider/QHP. History of Present Illness Chief Complaint: dyspnea on exertion, tachycardia Primary Care Provider: Lucas Lazo MD This is a 59yo M with a PMH of atrial fibrillation non-compliant with anticoagulation, Nonischemic cardiomyopathy (EF of 40-45% in February 2024), diet-controlled DM II, tobacco use disorder, CAD, dyslipidemia, HTN and other medical problems listed below who presents with dyspnea on exertion and elevated HR. Was seen by PCP earlier today for cough and dyspnea on exertion x 6 days. In the office, patient was noted to by tachycardic with EKG revealing A fib with HR in 130s. Does report to be taking Toprol as prescribed and took this AM. Was diagnosed with atrial fibrillation back in February 2024 and [place] [facility] [place]. Was prescribed Eliquis at that time but has not started as he "wanted to do research on it". In addition to the dyspnea on exertion and cough for the past few days, also endorses intermittent palpitations and difficulty taking a deep breath. Denies any calf pain or swelling. Compliant with the rest of his medications. Still smoking 0.5 PPD. Denies any known history of clotting disorder. Allergies Allergy/AdvReac Type Severity Reaction Status Date / Time Cipro Allergy Unknown Itching Verified 09/05/14 14:10 and rash ciprofloxacin Allergy Unknown Itching Verified 03/21/24 13:58 and rash Home Medications Medication Instructions Recorded Confirmed Type levothyroxine 75 mcg tablet 75 mcg PO DAILY 03/15/18 07/04/24 History metoprolol succinate 100 mg 100 mg PO QAM 03/15/18 07/04/24 History tablet,extended release 24 hr (Toprol XL) montelukast 10 mg tablet 10 mg PO QAM 11/12/19 07/04/24 History nitroglycerin 0.4 mg sublingual 0.4 mg sublingual Q5M PRN chest 11/14/19 07/04/24 Rx tablet pain #25 tabs cetirizine 10 mg tablet (Zyrtec) 10 mg PO DAILY 01/12/22 07/04/24 History aspirin 81 mg tablet,delayed 81 mg PO DAILY 01/04/23 07/04/24 History release (Adult Low Dose Aspirin) famotidine 20 mg tablet 20 mg PO BID #180 tabs 08/07/23 07/04/24 Rx sacubitril 97 mg-valsartan 103 mg 1 tab PO BID #180 tabs 02/20/24 07/04/24 Rx tablet (Entresto) apixaban 5 mg tablet (Eliquis) 5 mg PO BID #180 tabs 03/21/24 07/04/24 Rx Past Med/Surg History Problem List (Updated 07/04/24 @ 17:27 by Jerardo Cedillo MD) Tachycardia Permanent atrial fibrillation Bilateral pulmonary embolism Atrial fibrillation with RVR Dyslipidemia CAD (coronary artery disease) 30% proximal LAD stenosis, 30% LCx stenosis on cath 09/29/2014 Symptomatic carotid artery narrowing without infarction History of colonoscopy Nonischemic cardiomyopathy Medical History Obesity Superficial thrombophlebitis Hypothyroidism Dizziness Diabetes mellitus, type II Tobacco use Nonischemic cardiomyopathy Surgical History History of cardiac cath 2014 Family History Brother Heart disease Father Heart disease Mother Lung cancer Social History Smoking Status: Current every day smoker Tobacco Type: Cigarettes packs per day: 0.5; Cigarettes Per Day: 1ppd x 40 years; Hx Alcohol Use: No Hx Substance Use: No Preferred Language: Yi Communication Ability: Effective Dental Insurance Coordinator Required: No Beliefs That Will Affect Care: None Current Living Situation: Spouse Feels Safe at Home: Yes Assistive Devices: None Review of Systems Review of Systems: At least ten systems reviewed and negative except as noted in the HPI. Physical Exam Physical Exam: General Appearance: WD/WN, vitals as above, NAD, sitting up in bed, pleasant, conversing easily Head: normocephalic, atraumatic Eyes: normal inspection, PERRL, conjunctivae normal, anicteric sclerae ENT: external ear and nose normal, oropharynx normal Neck: normal visual inspection, trachea midline, no thyromegaly Respiratory: normal respiratory effort, lungs clear to auscultation, no wheeze, rales, rhonchi. No accessory muscle use Cardiovascular: irregular rate & rhythm, normal peripheral pulses, no BLE edema. Vessels: no JVD Chest: normal inspection of chest Abdomen/GI: normal bowel sounds, soft, nontender, no hepatosplenomegaly Extremities/Musculoskeletal: no cyanosis or clubbing, extremities motor stre ngth 5/5 Neurologic: PERRL, EOMI, accommodation nl, no face palsy, no dysarthria, CN's II-XI intact bilaterally and moves all extremities Psychiatric: A+Ox3, euthymic affect Skin: no rashes, normal color, warm/dry Results & Data Results & Data Vital Signs (Past 12 Hours) Vital Signs Temp Pulse Pulse Resp BP BP Pulse Ox 07/04/24 15:44 97 H 112/79 07/04/24 14:14 96 H 20 105/88 94 07/04/24 13:21 100 H 22 94/78 L 97 07/04/24 12:57 92 H 22 83/61 L 95 07/04/24 12:44 90 20 95/58 L 95 07/04/24 12:31 101 H 24 89/70 L 92 07/04/24 12:12 118 H 106/82 07/04/24 12:12 120 H 07/04/24 12:03 07/04/24 12:00 113 H 22 106/82 95 07/04/24 11:42 36.7 C 110 H 18 124/73 94 O2 Del Method 07/04/24 15:44 07/04/24 14:14 Room Air 07/04/24 13:21 Room Air 07/04/24 12:57 Room Air 07/04/24 12:44 Room Air 07/04/24 12:31 Room Air 07/04/24 12:12 07/04/24 12:12 07/04/24 12:03 Room Air 07/04/24 12:00 Room Air 07/04/24 11:42 Room Air Laboratory Results Short CBC 07/04/24 Range/Units 11:57 WBC 13.98 H (4.8-10.8) K/ul Hgb 15.1 (14.0-18.0) g/dl Hct 44.2 (42.0-52.0) % Plt Count 179 (130-400) K/uL BMP 07/04/24 07/04/24 11:57 13:05 Sodium Cancelled 136 Potassium Cancelled 4.3 Chloride Cancelled 107 Carbon Dioxide Cancelled 20 L BUN Cancelled 29 H Creatinine Cancelled 0.96 Glucose Cancelled 144 H Calcium Cancelled 9.1 Liver Function 07/04/24 07/04/24 Range/Units 11:57 13:05 Total Bilirubin Cancelled 0.8 AST Cancelled 21 ALT Cancelled 27 Alkaline Phosphatase Cancelled 52 Albumin Cancelled 3.6 Urine 07/04/24 Range/Units 11:49 Urine Color Dark Yellow Urine Appearance Cloudy A (Clear) Urine pH 5.0 (4.5-7.5) Ur Specific Lee 1.035 H (1.000-1.030) Urine Protein 2+ H (Negative) Urine Glucose (UA) Negative (Negative) Diagnostic Findings Chest X-Ray 07/04/24 11:47 XR chest 1V portable CLINICAL HISTORY: Chest pain, nonspecific COMPARISON STUDY: 05/02/2024 FINDINGS: There is mild cardiomegaly without pulmonary vascular congestion. No effusion, consolidation, or pneumothorax. IMPRESSION: No acute findings. ACT 112: Negative or not required by law. Electronically signed by: Myles Cuenca M.D. 07/04/2024 12:47 PM Chest CTA 07/04/24 13:15 CT ANGIOGRAPHY OF THE CHEST, PULMONARY EMBOLUS PROTOCOL CLINICAL HISTORY: Chest pain. Evaluate for pulmonary embolus. COMPARISON STUDY: Chest CT May 02, 2024. Chest radiograph performed earlier today. TECHNIQUE: Following IV administration of 119 mL of Optiray, helical axial images of the chest were obtained utilizing the pulmonary embolus protocol. Maximal intensity projections and sagittal and coronal reformats were viewed on an independent 3D workstation. IV contrast was administered without complication. Automated exposure control was utilized for the study. A dose lowering technique was utilized adhering to the principles of ALARA. CT DOSE: 993.82 mGy.cm FINDINGS: Extensive bilateral pulmonary emboli are present. Specifically, emboli are noted within the distal right and left pulmonary arteries with a small saddle embolus. Numerous additional emboli are present. There is mild dilatation of the right heart chambers. No pericardial effusion. Heart is mildly enlarged. There is extensive coronary artery calcification. No thoracic aortic dissection is present. There is a small right pleural effusion. No pneumothorax. Mild right lower lobe groundglass opacity is present. A few subpleural opacities within the left lung measure up to 1.7 cm. There is no thoracic lymphadenopathy. IVC and hepatic veins are dilated with reflux of contrast. IMPRESSION: 1. Extensive bilateral pulmonary emboli including a small saddle embolus. Dilatation of the right heart chambers raises the possibility of right heart strain. Findings conveyed to Dr. Fox at time of dictation. 2. Trace right pleural effusion. 3. Subpleural right lower lobe ground glass opacity. The appearance favors atelectasis however an underlying pulmonary infarct may be present. 4. A few small subpleural opacities within the left lung. These could reflect small pulmonary infarcts or an infectious process. Chest CT in 3 months to ensure resolution is recommended. ACT 112: Negative or not required by law. Electronically signed by: Jony Harper M.D. 07/04/2024 3:01 PM ECG Additional Comments: A fib with RVR at 127 bpm Supervising Physician Co-Signing Physician Notes 59-year-old male with a PMH of A-fib noncompliant with anticoagulation, nonischemic cardiomyopathy [EF of 45 to 45% February 2024], diet-controlled T2DM, tobacco use disorder, CAD, HLD, HTN presented with complaint shortness of breath for about 7 days, gradually worsening. Patient denies fever/sore throat/chest pain/belly pain/pain or burning while passing urine/vomiting. Patient reports cough at baseline, some nausea. He was recently diagnosed with A-fib and prescribed Eliquis but has not started it yet. Labs reviewed, WBC elevated at 13.98K, renal function fairly WNL, liver function WNL. Troponin flat trending 20s. TSH WNL. CT chest with extensive bilateral PE and small saddle embolus. Dilatation of the right heart chambers noted suggestive of right heart strain. Bilateral PE with saddle embolus and right heart strain: Admit patient in ICU care, ICU consult, continue with heparin drip, trend troponin. patient counseled regarding need for compliance with blood thinner. Will get echo. Venous Doppler BLE. A-fib RVR: Patient states he took a.m. dose of metoprolol. As needed IV metoprolol, cardiology consult. Leukocytosis: Likely secondary to acute stress, no signs and symptoms on exam on exam. No signs and symptoms of infection on exam. Continue to monitor off antibiotics. Demand ischemia: 2/2 acute PE. On exam: GENERAL: Alert and oriented x3. NAD, on RA. HEENT: No pallor, no icterus. Pupils equal, round and reactive to light. Oral mucosa moist. NECK: No JVD, no neck masses. HEART: S1 and S2 heard. irregular rate and rhythm. in 110s. No murmur, no gallop. RESPIRATORY SYSTEM: Normal AP diameter. No accessory muscle use. No wheezing, no crackles. ABDOMEN: Soft, bowel sounds present, nontender, no distention. CENTRAL NERVOUS SYSTEM: No facial droop. Speech is clear. Obeys simple commands. Moves extremities. EXTREMITIES: No edema, no erythema seen. I have seen and examined the patient and have discussed the case with the provider above. I agree with the assessment and plan as stated. Time spent separately: 30 min (4) CAD (coronary artery disease) Associated angina: without angina Coronary Disease-Associated Artery/Lesion type: [place] artery [place] vs. transplanted heart: [place]up[place] heart Qualified Code(s): I25.10 - Atherosclerotic heart disease of [place] coronary artery without angina pectoris
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
--- OUTSIDE RECORDS SUMMARY | 2024-07-04 16:53 | External Medical Summary | Summary of Care ---
Author Name Unknown Organization [facility] Address [address] [facility] [place] [address] Phone [phone] Care Team Providers Care Insurance Salesman Name Role Phone Lucas Lazo MD Primary Care Provider [phone]- [phone] Reason for Visit * Reason Onset Date Comments Nurse Documentation 06/04/2024 Encounter Details Date Type Department Care Team (Late st Contact Info) Description 06/04/2024 Telephone [facility] [address] [place] [address] Lucas Lazo MD [address] [place] [address] Nurse Documentation Allergies Active Allergy Reactions Criticality Noted Date Comments Ciprofloxacin Itching,Rash 01/05/2010 documented as of this encounter (statuses as of 06/04/2024) Medications nitroglycerin (NITROSTAT) 0.4 MG SUBL Active OneTouch Verio w/Device KitIndications:T ype 2 diabetes mellitus with hemoglobin A1c goal of less than 7.0% (HCC) Use up to 4 times a day E11.9 1 Kit 2 Active OneTouch Verio In Vitro Strip (Glucose Blood)Indication s:Type 2 diabetes mellitus with hemoglobin A1c goal of less than 7.0% (HCC) Use up to 4 times a day E11.9 100 Strip 11 2 Active ClaireTouch Delchristofer Lancets 33GIndications:T ype 2 diabetes mellitus with hemoglobin A1c goal of less than 7.0% ([facility]) Use up to 4 times [...] the morning. Active dexAMETHasone 0.1 % Ophthalmic SuspensionIndica tions:Dermatitis of both ear canals Apply 4 drops to both ear canals two times a day for 7 days. Then two times a day as needed for itching/dryness . 5 mL 3 4 Active Additional Information Patient not taking.Reported on 06/02/2024 Betamethasone Dipropionate 0.05 % External Cream (Diprosone)Indic ations:Dermatiti s of both ear canals Apply topically to both external ears two times a day for 7 days. Then two times a day as needed for itching/dryness . 30 g 3 4 Active Additional Information Patient not taking.Reported on 06/02/2024 Fluticasone Propionate 50 MCG/ACT Nasal Suspension (Flonase)Indicat ions:Chronic rhinitis Administer 2 Sprays into each nostril in the morning. 18 mL 1 4 Active Additional Information Patient not taking.Reported on 06/02/2024 Metoprolol Succinate ER 100 MG Oral Tablet Extended Release 24 Hour (toPROL XL) TAKE 1 TABLET BY MOUTH IN THE MORNING 90 Tablet 3 4 Active Levothyroxine Sodium 75 MCG Oral Tablet (Levoxyl)Indicat ions:Hypothyroid ism, unspecified type TAKE 1 TABLET BY MOUTH ONCE DAILY AT LEAST 30 MINUTES PRIOR TO BREAKFAST OR OTHER MEDS 90 Tablet 2 4 Active Entresto 97-103 MG Oral Tablet Take 1 Tablet by mouth in the morning and 1 Tablet before bedtime. 4 Active Famotidine 20 MG Oral Tablet (Pepcid)Indicati ons:Urticaria, chronic Take 1 Tablet by mouth in the morning and 1 Tablet before bedtime. 180 Tablet 2 10/11/202 4 Active Montelukast Sodium 10 MG Oral Tablet (Singulair) Take 1 Tablet by mouth in the morning. 90 Tablet 2 4 Active Apixaban 5 MG Oral Tablet (Eliquis) 1 Tablet. 4 Active Amoxicillin-Pot Clavulanate 875-125 MG Oral Tablet (Augmentin)Indic ations:Acute sinusitis, recurrence not specified, unspecified location Take 1 Tablet by mouth in the morning and 1 Tablet before bedtime. 20 Tablet 5 Active documented as of this encounter (statuses as of 06/04/2024) Active Problems Problem Noted Date Diagnosed Date Trigeminal neuralgia 10/08/2023 Symptomatic stenosis of righ t carotid artery without infarction 11/28/2021 Atherosclerosis of [place] co ronary artery without angina pectoris 06/22/2021 [...] as of this encounter (statuses as of 06/04/2024) Resolved Problems Problem Noted Date Diagnosed Date Resolved Date Chest discomfort 09/23/2014 09/04/2018 Abnormal stress echo 09/23/2014 019 Ischemic cardiomyopathy 09/23/201411/26 OBSTIPATION 09/27/2009 10/26/2010 Abdominal pain, generalized 09/24/2009 10/26/2010 HYPERGLYCEMIA 09/24/2009 10/26/2010 Abnormal glucose tolerance test 08/10/2008 10/26/2010 Chest pain 06/30/2008 10/26/2010 COSTOCHONDRITIS 06/30/2008 10/26/2010 BACKACHE NOS 10/26/2010 documented as of this encounter (statuses as of 06/04/2024) Immunizations Name Administration Dates Next Due TD, [...] of Assessment Author No 11/26/2021 9:21 PM Dena Salinas RN * Are you blind or do you have serious difficulty seeing, even when wearing glasses? Answer Date of Assessment Author No 11/26/2021 9:21 PM Dena Salinas RN * Do you have serious difficulty walking or climbing stairs? (5 years old or older) Answer Date of Assessment Author No 11/26/2021 9:21 PM Dena Salinas RN * Do you have difficulty dressing or bathing? (5 years old or older) Answer Date of Assessment Author No 11/26/2021 9:21 PM Dena Salinas RN * Because of a physical, mental, or emotional condition, do you have difficulty doing errands alone such as visiting a doctors office or shopping? (15 years old or older) Answer Date of Assessment Author No 11/26/2021 9:21 PM Dena Salinas RN documented as of this encounter Mental Status * Because of a physical, mental, or emotional condition, do you have serious difficulty concentrating, remembering, or making decisions? (5 years old or older) Answer Entry Date Author No 11/26/2021 9:21 PM EDT Mathew, A jaycob, RN documented in this encounter Miscellaneous Notes * Telephone Encounter - Lina Arcos MED ASSIST - 06/04/2024 7:50 AM EST Medical note from visit on 06/02 faxed to Mark. documented in this encounter Plan of Treatment Upcoming Encounters Date Type Department Care Team (Late st Contact Info) Description 06/10/2024 1:00 PM EST Office Visit [facility] [place] [address] [facility] [place] [phone] Lucas Lazo MD [address] [place] [address] 07/07/2024 11:30 AM EST Office Visit Otol[facility]ology [facility] [address] [place] [address] Jcarlos Rodrigues PA-C [address] [place] [address] 07/24/2024 8:40 AM EST [facility] [address] [place] [phone] Lucas Lazo MD [address] [facility] [place] [id number] Scheduled Procedures Name Priority Associated Diagnoses Date/Ti me COLONOSCOPY FLEXIBLE PROXIMAL DIAGNOSTIC Recall History of colon polyps Health Maintenance Due Date Last Done Comments DISCUSS TOBACCO CESSATION (REFER TO SMARTSET #3482) 1965 Pneumococcal Vaccine: 50+ Years (1 of 2 - PCV) 1982 Cologuard 02/06/2008 Fecal Occult Blood Test 02/06/2008 Sigmoidoscopy 02/06/2008 Lung Cancer Screening 2013 Colonoscopy 11/14/2022 11/14/2017, 10/27, 10/12/2010 COVID-19 Vaccine ( season) 2024 Influenza Vaccine (FLU shot) (#1) 2024 HbA1c 09/15/2024 03/17/2024, 08/27, 10/09/2022, Additional history exists Diabetic Foot Exam 09/20/2024 09/21/2023, 0 09/21/2023, 10/20/2020, Additional history exists Diabetic Eye Exam 10/30/2024 10/31/2023, , 10/26/2022, Additional history exists Depression Screening 01/20/2025 01/21/2024 GFR 03/17/2025 03/17/2024, 08/27, 07/05/2023, Additional history exists TSH 03/17/2025 03/17/2024, 08/27, 10/09/2022, Additional history exists Albumin/Creatinine Ratio 04/18/2025 [...] this encounter Medical Devices Implanted Type Area Geometry Tutor Device Identifier Shelf Expiration Date Model / Serial / Lot Stent Prec Pro Rx [id number] - [id number] Implanted:Qty : 1 on 11/27/2021 by Miguel Angel Lyons MD at [place] [facility] [place] Right: Carotid [facility] [facility] : [employer] [id number] 02/24/2023 [id number] / / [id number] Angioseal Vip 8 Fr - [id number] Implanted:Qty : 1 on 11/27/2021 by Miguel Angel Lyons MD at [facility] Right: Carotid [employer] [id number] 08/25/2022 [id number] / / [id number] documented as of this encounter Advance Directives * Full Code (Latest Code Status on File) Date Activated Date Inactivated Comments 11/26/2021 10:17 PM 11/28/2021 4:30 PM This order re flects the patients wishes and were consensually agreed upon. Care Teams Insurance Salesman Relationship Specialty Start Date End Date Lucas Lazo MD PCP - General 02/26/00 documented as of this encounter
--- OUTSIDE RECORDS SUMMARY | 2024-07-04 16:53 | External Medical Summary | Summary of Care ---
Author Name Unknown Organization [facility] Address [address] [facility] [place] [address] Phone [phone] Care Team Providers Care Mangle Feeder Name Role Phone Lucas Lazo MD Primary Care Provider +1- [phone] Encounter Details Date Type Department Care Team (Late st Contact Info) Description 06/17/2024 Population Health External Data Unspecified Department Allergies Active Allergy Reactions Criticality Noted Date Comments Ciprofloxacin Itching,Rash 01/05/2010 documented as of this encounter (statuses as of 06/17/2024) Medications nitroglycerin (NITROSTAT) 0.4 MG SUBL Active [...] day E11.9 100 Strip 11 2 Active OneTouch Delica Lancets 33GIndications:T ype 2 diabetes mellitus with hemoglobin A1c goal of less than 7.0% (HCC) Use up to 4 times per day [...] as of this encounter (statuses as of 06/17/2024) Active Problems Problem Noted Date Diagnosed Date Trigeminal neuralgia 10/08/2023 Symptomatic stenosis of righ t carotid artery without infarction 11/28/2021 Atherosclerosis of [place] co ronary artery without angina pectoris 06/22/2021 [...] as of this encounter (statuses as of 06/17/2024) Resolved Problems Problem Noted Date Diagnosed Date Resolved Date Chest discomfort 09/23/2014 09/04/2018 Abnormal stress echo 09/23/2014 019 Ischemic cardiomyopathy 09/23/201411/26 OBSTIPATION 09/27/2009 10/26/2010 Abdominal pain, generalized 09/24/2009 10/26/2010 HYPERGLYCEMIA 09/24/2009 10/26/2010 Abnormal glucose tolerance test 08/10/2008 10/26/2010 Chest pain 06/30/2008 10/26/2010 COSTOCHONDRITIS 06/30/2008 10/26/2010 BACKACHE NOS 10/26/2010 documented as of this encounter (statuses as of 06/17/2024) Immunizations Name Administration Dates Next Due TD, [...] Entry Date Author No 11/26/2021 9:21 PM Dena Salinas RN documented in this encounter Plan of Treatment Upcoming Encounters Date Type Department Care Team (Late st Contact Info) Description 07/07/2024 11:30 AM EST Office Visit Otolaryngology [facility] [address] [address] Jcarlos Rodrigues PA-C [address] [address] 07/24/2024 8:40 AM EST Office Visit [facility] [place] Bjrosemarie Tatum [address] [address] Lucas Lazo MD [address] [place] [address] Scheduled Procedures Name Priority Associated Diagnoses Date/Ti me COLONOSCOPY FLEXIBLE PROXIMAL DIAGNOSTIC Recall History of colon polyps Health Maintenance Due Date Last Done Comments DISCUSS TOBACCO CESSATION (REFER TO SMARTSET #7043) 1965 Pneumococcal Vaccine: 50+ Years (1 of [...] this encounter Medical Devices Implanted Type Area Bus Attendant Device Identifier Shelf Expiration Date Model / Serial / Lot Stent Prec Pro Rx [id number] - [id number] Implanted:Qty : 1 on 11/27/2021 by Miguel Angel Lyons MD at OR [facility] Right: Carotid [facility] [facility] : [employer] [id number] 02/24/2023 [id number] / / [id number] Angioseal Vip 8 Fr - [id number] Implanted:Qty : 1 on 11/27/2021 by iMguel Angel Lyons MD at OR [facility] Right: Carotid [employer] [id number] 08/25/2022 [id number] / / [id number] documented as of this encounter Advance Directives * Full Code (Latest Code Status on File) Date Activated Date Inactivated Comments 11/26/2021 10:17 PM 11/28/2021 4:30 PM This order re flects the patients wishes and were consensually agreed upon. Care Teams Mangle Feeder Relationship Specialty Start Date End Date Lucas Lazo MD PCP - General 02/26/00 documented as of this encounter
--- OUTSIDE RECORDS SUMMARY | 2024-07-04 16:53 | External Medical Summary | Summary of Care ---
Author Name Unknown Organization [facility] Address [address] [facility] [place] [address] Phone [phone] Care Team Providers Care Stationary Equipment Mechanic Name Role Phone Lucas Lazo MD Primary Care Provider +1- [phone] Reason for Visit * Reason Comments Hospital Follow-Up Hospital follow up 1 07/07 and 05/02 for concussion. Pt reports that he fell into a snow plow. Patient reports that he still doesn't feel "quite right" and "is a little off." Encounter Details Date Type Department Care Team (Late st Contact Info) Description 05/09/2024 1:00 PM EST Office [facility] [address] [address] Lucas Lazo MD [address] [facility] [place] [address] Concussion without loss of consciousness, initial encounter*; Acute sinusitis, recurrence not specified, unspecified location Allergies Active Allergy Reactions Criticality Noted Date Comments Ciprofloxacin Itching,Rash 01/05/2010 documented as of this encounter (statuses as of 05/26/2024) Medications nitroglycerin (NITROSTAT) 0.4 MG SUBL Active OneTouch Verio w/Device KitIndications:T ype 2 diabetes mellitus with hemoglobin A1c goal of less than 7.0% ([facility]) Use up to 4 times a day E11.9 1 Kit 2 Active OneTouch Verio In Vitro Strip (Glucose Blood)Indication s:Type 2 diabetes mellitus with hemoglobin A1c goal of less than 7.0% ([facility]) Use up to 4 times a day E11.9 100 Strip 11 2 Active OneTouch Delica Lancets 33GIndications:T ype 2 diabetes mellitus with hemoglobin A1c goal of less than 7.0% ([facility]) Use up to 4 times per day [...] Active Additional Information Patient not taking.Reported on 05/19/2024 Betamethasone Dipropionate 0.05 % External Cream (Diprosone)Indic ations:Dermatiti s of both ear canals Apply topically to both external ears two times a day for 7 days. Then two times a day as needed for itching/dryness . 30 g 3 4 Active Fluticasone Propionate 50 MCG/ACT Nasal Suspension (Flonase)Indicat ions:Chronic rhinitis Administer 2 Sprays into each nostril in the morning. 18 mL 1 4 Active Additional Information Patient not taking.Reported on 05/19/2024 Metoprolol Succinate ER 100 MG Oral Tablet [...] and 1 Tablet before bedtime. 20 Tablet 4 Active documented as of this encounter (statuses as of 05/26/2024) Active Problems Problem Noted Date Diagnosed Date Trigeminal neuralgia 10/08/2023 Symptomatic stenosis of righ t carotid artery without infarction 11/28/2021 Atherosclerosis of [place] co ronary artery without angina pectoris 06/22/2021 [...] as of this encounter (statuses as of 05/26/2024) Resolved Problems Problem Noted Date Diagnosed Date Resolved Date Chest discomfort 09/23/2014 09/04/2018 Abnormal stress echo 09/23/2014 019 Ischemic cardiomyopathy 09/23/201411/26 OBSTIPATION 09/27/2009 10/26/2010 Abdominal pain, generalized 09/24/2009 10/26/2010 HYPERGLYCEMIA 09/24/2009 10/26/2010 Abnormal glucose tolerance test 08/10/2008 10/26/2010 Chest pain 06/30/2008 10/26/2010 COSTOCHONDRITIS 06/30/2008 10/26/2010 BACKACHE NOS 10/26/2010 documented as of this encounter (statuses as of 05/26/2024) Immunizations Name Administration Dates Next Due TD, [...] 01/20/2024 Does the household have a re lar source of income? (Household - for ages [...] on file documented as of this encounter Last Filed Vital Signs Vital Sign Reading Time Taken Comments Blood Pressure 141/81 05/09/2024 1:06 PM EST Pulse 86 05/09/2024 1:06 PM EST Temperature 36.9 C (98.4 F) 05/09/2024 1:06 PM ES T Respiratory Rate 16 05/09/2024 1:06 PM EST Oxygen Saturation 99% 05/09/2024 1:06 PM EST Inhaled Oxygen Concentration - - Weight 112.5 kg (248 lb 1.6 oz) 05/09/2024 1:06 PM EST Height 177.8 cm (5' 10") 05/09/2024 1:06 PM EST Body Mass Index 35.6 05/09/2024 1:06 PM EST documented in this encounter Functional Status * Are you deaf or do you have serious difficulty hearing? Answer Date of Assessment Author No 11/26/2021 9:21 PM EDT Dena Mathew, RN * Are you blind or do [...] Dena Salinas RN documented in this encounter Progress Notes * Lucas Lazo MD - 05/09/2024 1:31 PM EST Subjective: Helio Salas is a 59 year old male here today for Chief Complaint Patient presents with Hospital Follow-Up Hospital follow up 05/06 and 05/02 for concussion. Pt reports that he fell into a snow plow. Patientreports that he still doesn't feel "quite right" and "is a little off." Pt presents for follow up after ED visits at [facility] 05/02/24 and 05/06/24. Please see those notes for details. He had a fall while getting off his tractor and his face landed on the edge or a plow blade. Occurred 05/01/24. Due to persistent symptoms, seen in ED 05/02/24. Did have neuroimaging. Has symptoms of concussion with some confusion and fatigue. Unable to be physically active at a level that hewould need for his job without significant worsening of symptoms. Past Medical History: Diagnosis Date Backache Benign neoplasm of colon 10/12/2010 several polyps, pathshows adenomatous tissue, and no inflammation in small bowel repeat in 3 years,IH, EH diverticulosis Carpal tunnel syndrome Bilateral DDD (degenerative disc disease), lumbar Nonischemic cardiomyopathy (HCC) 11/10/2014 Tobacco use disorder 06/30/2008 Type 2 diabetes mellitus with hemoglobin A1c goal of less than 7.0% (HCC) 10/26/2010 ICD-10 update of inactive term UNSPECIFIED GASTRITIS AND GASTRODUODENITIS WITHOUT MENTION OF HEMORRHAGE 04/03/2006 Past Surgical History: Procedure Laterality Date CAROTID (INTERNAL) ARTERY CATHETHER PLACEMENT N/A 11/27/2021 CATHETER PLACEMENT INTERNAL CAROTID ARTERY performed by Miguel Angel Lyons MD [place] [facility] [place]ONOSCOPY W/ LESION REMOVAL, SNARE 10/12/10 several polyps, pathshows adenomatous tissue, and no inflammation in small bowel repeat in 3 years,IH, EH diverticulosis COLONOSCOPY, DIAGNOSTIC (RECTUM) 11/14/2017 adenomatous polyp, diverticulosis, repeat 5 yrs/COLONOSCOPY FLEXIBLE PROXIMAL DIAGNOSTIC performed by Rigoberto Perez MD at ENDOSCOPY [facility] CORONARY ANGIOGRAPHY W/LEFT HEART CATH 09/29/2014 CORONARY ANGIOGRAPHY W/LEFT HEART CATH performed by Anisha Marx MD at [facility] EGD, FLEXIBLE, DIAGNOSTIC 11/05/09 wnl INJECT DX/THER SUBSTANCE INTERLAMINAR LUMBAR/SACRAL W IMAGE GUIDE 02/18/2018 INJECTION SPINE LUMBAR OR SACRAL performed by Abhijit Miner DO at OR [facility] REMOVAL OF KIDNEY STONE 2002 Kidney Stone Removal WILD STRESS TREADMILL 11/27 Negative TRANSCATH STENT-CAROTID ARTERY, W/EMBOL PROTECTION N/A 11/27/2021 CAROTID STENT WITH DISTAL PROTECTION performed by Miguel Angel Lyons MD at [place] [facility] VERTEBRAL ARTERY CATHETER PLACEMENT N/A 11/27/2021 CATHETER PLACEMENT VERTEBRAL ARTERY, performed by Miguel Angel Lyons MD at [place] [facility] Review of patient's allergies indicates: Allergen Reactions Ciprofloxacin Itching and Rash Current Outpatient Medications Medication Sig Dispense Refill nitroglycerin (NITROSTAT) 0.4 MG SUBL OneTouch Verio w/Device Kit Use up to 4 times a day E11.9 1 Kit 0 OneTouch Verio In Vitro Strip (Glucose Blood) Use up to 4 times a day E11.9 100 Strip 11 OneTouch Delica Lancets 33G Use up to 4 times per day 100 Each 3 Aspirin 81 MG Oral Tablet Chewable Take 1 Tablet by mouth in the morning. 30 Tablet 6 Cetirizine HCl 10 MG Oral Tablet Chewable (ZyrTEC) Take 1 Tablet by mouth in the morning. Betamethasone Dipropionate 0.05 % External Cream (Diprosone) Apply topically to both external ears two times a day for 7 days. Then two times a day as needed for itching/dryness. 30 g 3 Metoprolol Succinate ER 100 MG Oral Tablet Extended Release 24 Hour (toPROL XL) TAKE 1 TABLET BY MOUTH IN THE MORNING 90 Tablet 3 Levothyroxine Sodium 75 MCG Oral Tablet (Levoxyl) TAKE 1 TABLET BY MOUTH ONCE DAILY AT LEAST 30 MINUTES PRIOR TO BREAKFAST OR OTHER MEDS 90 Tablet 2 Entresto 97-103 MG Oral Tablet Take 1 Tablet by mouth in the morning and 1 Tablet before bedtime. Famotidine 20 MG Oral Tablet (Pepcid) Take 1 Tablet by mouth in the morning and 1 Tablet before bedtime. 180 Tablet 2 Montelukast Sodium 10 MG Oral Tablet (Singulair) Take 1 Tablet by mouth in the morning. 90 Tablet 2 Apixaban 5 MG Oral Tablet (Eliquis) 1 Tablet. Amoxicillin-Pot Clavulanate 875-125 MG Oral Tablet (Augmentin) Take 1 Tablet by mouth in the morning and 1 Tablet before bedtime. 20 Tablet 0 Ezetimibe 10 MG Oral Tablet (Zetia) Take 1 Tablet by mouth in the morning. (Patient not taking: Reported on 01/21/2024) dexAMETHasone 0.1 % Ophthalmic Suspension Apply 4 drops to both ear canals two times a day for 7 days. Then two times a day as needed for itching/dryness. (Patient not taking: Reported on 05/19/2024)5 mL 3 Fluticasone Propionate 50 MCG/ACT Nasal Suspension (Flonase) Administer 2 Sprays into each nostril in the morning. (Patient not taking: Reported on 05/19/2024) 18 mL 1 No current facility-administered medications for this visit. Objective: BP 141/81 | Pulse 86 | Temp 98.4 F (36.9 C) (Tympanic) | Resp 16 | Ht 5' 10" (1.778 m) | Wt 248 lb 1.6 oz (112.5 kg) | SpO2 99% | BMI 35.60 kg/m | BSA 2.36 m GEN: NAD HEENT: Benign NECK: Supple with no LAD, TM, JVD CHEST: CTA B CV: RRR ABD: Soft, NT/ND, No HSM, NABS EXT: No c,c,e Neuro: CN's 2-12 intact. Sensation intact to light touch throughout. Motor strength 5/5 in all extremities. Reflexes 2+ and symmetric. Walks with a normal, steady gait. No tremors. Coordination intact. Assessment and Plan: Concussion without loss of consciousness, initial encounter (Primary) -unable to work at this time due to symptoms of concussion. -recheck in 1 week. -advance activity as tolerated. Best efforts to avoid another head injury -call for new or worsening symptoms. Acute sinusitis, recurrence not specified, unspecified location - Amoxicillin-Pot Clavulanate 875-125 MG Oral Tablet (Augmentin); Take 1 Tablet by mouth in the morning and 1 Tablet before bedtime. 35 min with pt and chart review Lucas Lazo MD documented in this encounter Nursing Notes * Lina Arcos MED ASSIST - 05/09/2024 1:12 PM EST The patient has been properly identified by confirmation of name and date of . Chief Complaint Patient presents with Hospital Follow-Up Hospital follow up 05/06 and 05/02 for concussion. Pt reports that he fell into a snow plow. Patientreports that he still doesn't feel "quite right" and "is a little off." documented in this encounter Plan of Treatment Upcoming Encounters Date Type Department Care Team (Late st Contact Info) Description 07/07/2024 11:30 AM EST Office Visit Otolaryngology [facility] [address] [address] Jcarlos Rodrigues PA-C [address] [address] 07/24/2024 8:40 AM EST Office Visit [facility] Katt Tatum [address] [address] Lucas Lazo MD [address] [address] Scheduled Procedures Name Priority Associated Diagnoses Date/Ti me COLONOSCOPY FLEXIBLE PROXIMAL DIAGNOSTIC Recall History of colon polyps Health Maintenance Due Date Last Done Comments DISCUSS TOBACCO CESSATION (REFER TO SMARTSET #7417) 1965 Pneumococcal Vaccine: 50+ Years (1 of [...] this encounter Medical Devices Implanted Type Area Loading Dock Helper Device Identifier Shelf Expiration Date Model / Serial / Lot Stent Prec Pro Rx [id number] - [id number] Implanted:Qty : 1 on 11/27/2021 by Miguel Angel Lyons MD [place] [facility] [place]: Carotid [facility] : [employer] [id number] 02/24/2023 [id number] / / [id number] Angioseal Vip 8 Fr - [id number] Implanted:Qty : 1 on 11/27/2021 by Miguel Angel Lyons MD at [place] [facility] Right: Carotid [employer] [id number] 08/25/2022 [id number] / / [id number] documented as of this encounter Visit Diagnoses Diagnosis Concussion without loss of consciousness, initial encounter- Primary Acute sinusitis, recurrence not specified, unspecified location documented in this encounter Advance Directives * Full Code (Latest Code Status on File) Date Activated Date Inactivated Comments 11/26/2021 10:17 PM 11/28/2021 4:30 PM This order re flects the patients wishes and were consensually agreed upon. Care Teams Stationary Equipment Mechanic Relationship Specialty Start Date End Date Lucas Lazo MD PCP - General 02/26/00 documented as of this encounter
--- OUTSIDE RECORDS SUMMARY | 2024-07-04 16:53 | External Medical Summary | Summary of Care ---
Author Name Unknown Organization [facility] Address [address] [facility] [place] [address] Phone [phone] Care Team Providers Care Caser In Name Role Phone Lucas Lazo MD Primary Care Provider +1- [phone] Reason for Visit * Reason Onset Date Comments Nurse Documentation 05/12/2024 Encounter Details Date Type Department Care Team (Late st Contact Info) Description 05/12/2024 Telephone [facility] [address] [place] [address] Lucas Lazo MD [address] [place] [address] Nurse Documentation Allergies Active Allergy Reactions Criticality Noted Date Comments Ciprofloxacin Itching,Rash 01/05/2010 documented as of this encounter (statuses as of 05/12/2024) Medications nitroglycerin (NITROSTAT) 0.4 MG SUBL Active [...] hemoglobin A1c goal of less than 7.0% ([facility]) Use up to 4 times per day [...] Active Additional Information Patient not taking.Reported on 05/09/2024 Betamethasone Dipropionate 0.05 % External Cream (Diprosone)Indic [...] Active Additional Information Patient not taking.Reported on 05/09/2024 Metoprolol Succinate ER 100 MG Oral Tablet [...] as of this encounter (statuses as of 05/12/2024) Active Problems Problem Noted Date Diagnosed Date Trigeminal neuralgia 10/08/2023 Symptomatic stenosis of righ t carotid artery without infarction 11/28/2021 Atherosclerosis of [place] co ronary artery without angina pectoris 06/22/2021 [...] as of this encounter (statuses as of 05/12/2024) Resolved Problems Problem Noted Date Diagnosed Date Resolved Date Chest discomfort 09/23/2014 09/04/2018 Abnormal stress echo 09/23/2014 019 Ischemic cardiomyopathy 09/23/201411/26 OBSTIPATION 09/27/2009 10/26/2010 Abdominal pain, generalized 09/24/2009 10/26/2010 HYPERGLYCEMIA 09/24/2009 10/26/2010 Abnormal glucose tolerance test 08/10/2008 10/26/2010 Chest pain 06/30/2008 10/26/2010 COSTOCHONDRITIS 06/30/2008 10/26/2010 BACKACHE NOS 10/26/2010 documented as of this encounter (statuses as of 05/12/2024) Immunizations Name Administration Dates Next Due TD, [...] for ages 0-17 years) Not on file 08 / Food Insecurity Answer Date Recorded Do you [...] Dena Salinas RN documented in this encounter Miscellaneous Notes * Telephone Encounter - Lina Arcos MED ASSIST - 05/12/2024 1:41 PM EST Received Fax for BFPROVIDERS: Dr. Lucas Lazo Prescription refill received from [facility] and FAXED documented in this encounter Plan of Treatment Upcoming Encounters Date Type Department Care Team (Late st Contact Info) Description 05/19/2024 3:00 PM EST Office Visit [facility] [address] [phone] Lucas Lazo MD [address] [address] 07/07/2024 11:30 AM EST Office Visit Otol[facility]ology [facility] [address] [place] [address] Jcarlos Rodrigues PA-C [address] [place] [address] 07/24/2024 8:40 AM EST [facility] K[address] T[address] [phone] Lucas Lazo MD [address] [address] Scheduled Procedures Name Priority Associated Diagnoses Date/Ti me COLONOSCOPY FLEXIBLE PROXIMAL DIAGNOSTIC Recall History of colon polyps Health Maintenance Due Date Last Done Comments DISCUSS TOBACCO CESSATION (REFER TO SMARTSET #0833) 1965 Pneumococcal Vaccine: Pediatrics (0 to 5 [...] this encounter Medical Devices Implanted Type Area Self Storage Manager Device Identifier Shelf Expiration Date Model / Serial / Lot Stent Prec Pro Rx [id number] - [id number] Implanted:Qty : 1 on 11/27/2021 by Miguel Angel Lyons MD at [place] [facility] Right: Carotid [facility] : [employer] [id number] 02/24/2023 [id number] / / [id number] Angioseal Vip 8 Fr - [id number] Implanted:Qty : 1 on 11/27/2021 by Miguel Angel Lyons MD at [facility] Right: Carotid [employer] [id number] 08/25/2022 [id number] / / [id number] documented as of this encounter Advance Directives * Full Code (Latest Code Status on File) Date Activated Date Inactivated Comments 11/26/2021 10:17 PM 11/28/2021 4:30 PM This order re flects the patients wishes and were consensually agreed upon. Care Teams Caser In Relationship Specialty Start Date End Date Lucas Lazo MD [address], [place] [id number] PCP - General 02/26/00 documented as of this encounter
--- OUTSIDE RECORDS SUMMARY | 2024-07-04 16:53 | External Medical Summary | Summary of Care ---
Author Name Unknown Organization [facility] Address [address] [facility] [place] [address] Phone [phone] Care Team Providers Care English Adjunct Faculty Name Role Phone Lucas Lazo MD Primary Care Provider +1- [phone] Encounter Details Date Type Department Care Team (Late st Contact Info) Description [facility] [address] [place] [address] Lucas Lazo MD 226 [facility] [place] [id number] Allergies Active Allergy Reactions Criticality Noted Date Comments Ciprofloxacin Itching,Rash 01/05/2010 documented as of this encounter (statuses as of 05/30/2024) Medications nitroglycerin (NITROSTAT) 0.4 MG SUBL Active OneTouch Verio w/Device KitIndications:T ype 2 diabetes mellitus with hemoglobin A1c goal of less than 7.0% ([facility]) Use up to 4 times a day E11.9 1 Kit 2 Active OneTouch Verio In Vitro Strip (Glucose Blood)Indication s:Type 2 diabetes mellitus with hemoglobin A1c goal of less than 7.0% (HCC) Use up to 4 times a day E11.9 100 Strip 11 2 Active OneTouch Delica Lancets 33GIndications:T ype 2 diabetes mellitus with hemoglobin A1c goal of less than 7.0% ([facility]) Use up to 4 times [...] as of this encounter (statuses as of 05/30/2024) Active Problems Problem Noted Date Diagnosed Date Trigeminal neuralgia 10/08/2023 Symptomatic stenosis of righ t carotid artery without infarction 11/28/2021 Atherosclerosis of [place] co ronary artery without angina pectoris 06/22/2021 [...] as of this encounter (statuses as of 05/30/2024) Resolved Problems Problem Noted Date Diagnosed Date Resolved Date Chest discomfort 09/23/2014 09/04/2018 Abnormal stress echo 09/23/2014 019 Ischemic cardiomyopathy 09/23/2014 0706/2014 OBSTIPATION 09/27/2009 10/26/2010 Abdominal pain, generalized 09/24/2009 10/26/2010 HYPERGLYCEMIA 09/24/2009 10/26/2010 Abnormal glucose tolerance test 08/10/2008 10/26/2010 Chest pain 06/30/2008 10/26/2010 COSTOCHONDRITIS 06/30/2008 10/26/2010 BACKACHE NOS 10/26/2010 documented as of this encounter (statuses as of 05/30/2024) Immunizations Name Administration Dates Next Due TD, [...] 07/07/2024 11:30 AM EST Office Visit Otol[facility]ology [facility] [address] [place] [address] Jcarlos Rodrigues PA-C [address] [place] [address] 07/24/2024 8:40 AM EST Office Visit [facility] [place] [address] [place] [phone] Lucas Lazo MD [address] [place] [address] Scheduled Procedures Name Priority Associated Diagnoses Date/Ti me COLONOSCOPY FLEXIBLE PROXIMAL DIAGNOSTIC Recall History of colon polyps Health Maintenance Due Date Last Done Comments DISCUSS TOBACCO CESSATION (REFER TO SMARTSET #7505) 1965 Pneumococcal Vaccine: 50+ Years (1 of [...] this encounter Medical Devices Implanted Type Area Nuclear Supervising Operator Device Identifier Shelf Expiration Date Model / Serial / Lot Stent Prec Pro Rx [id number] - [id number] Implanted:Qty : 1 on 11/27/2021 [place] Miguel Angel Lyons [place] [facility] [place] Carotid [facility] : [employer] [id number] 02/24/2023 [id number] / / [id number] Angioseal Vip 8 Fr - [id number] Implanted:Qty : 1 on 11/27/2021 by Miguel Angel Lyons MD [place] [facility] [place] Carotid [employer] [id number] 08/25/2022 [id number] / / [id number] documented as of this encounter Advance Directives * Full Code (Latest Code Status on File) Date Activated Date Inactivated Comments 11/26/2021 10:17 PM 11/28/2021 4:30 PM This order re flects the patients wishes and were consensually agreed upon. Care Teams English Adjunct Faculty Relationship Specialty Start Date End Date Lucas Lazo MD PCP - General 02/26/00 documented as of this encounter
--- OUTSIDE RECORDS SUMMARY | 2024-07-04 16:53 | External Medical Summary | Summary of Care ---
Author Name Unknown Organization [facility] Address [address] [facility] [place] [address] Phone [phone] Care Team Providers Care Snipper Name Role Phone Lucas Lazo MD Primary Care Provider +1- [phone] Reason for Visit * Reason Onset Date Comments Fax 05/07/2024 Encounter Details Date Type Department Care Team (Late st Contact Info) Description 05/07/2024 Telephone [facility] [address] [facility] [place] [address] Lucas Lazo MD 226 [facility] [place] [address] Fax Allergies Active Allergy Reactions Criticality Noted Date Comments Ciprofloxacin Itching,Rash 01/05/2010 documented as of this encounter (statuses as of 05/13/2024) Medications nitroglycerin (NITROSTAT) 0.4 MG SUBL Active [...] hemoglobin A1c goal of less than 7.0% ([facility]) Use up to 4 times [...] as of this encounter (statuses as of 05/13/2024) Active Problems Problem Noted Date Diagnosed Date Trigeminal neuralgia 10/08/2023 Symptomatic stenosis of righ t carotid artery without infarction 11/28/2021 Atherosclerosis of [place] co ronary artery without angina pectoris 06/22/2021 [...] as of this encounter (statuses as of 05/13/2024) Resolved Problems Problem Noted Date Diagnosed Date Resolved Date Chest discomfort 09/23/2014 09/04/2018 Abnormal stress echo 09/23/2014 019 Ischemic cardiomyopathy 09/23/201411/26 OBSTIPATION 09/27/2009 10/26/2010 Abdominal pain, generalized 09/24/2009 10/26/2010 HYPERGLYCEMIA 09/24/2009 10/26/2010 Abnormal glucose tolerance test 08/10/2008 10/26/2010 Chest pain 06/30/2008 10/26/2010 COSTOCHONDRITIS 06/30/2008 10/26/2010 BACKACHE NOS 10/26/2010 documented as of this encounter (statuses as of 05/13/2024) Immunizations Name Administration Dates Next Due TD, [...] Telephone Encounter - Tierney Allen OSA - 05/13/2024 4:15 PM EST Done. 05/13/2024 * Telephone Encounter - Sushma Becker LPN - 05/12/2024 11:27 AM EST Patient agreeable. And send to scheduling for appt. * Telephone Encounter - Lucas Lazo MD - 05/12/2024 10:47 AM EST We can't give a return to work date because we do not know when he will be able to return. It is impossible to predict the time course with a concussion. If sounds like he is definitely not able to return at this time. I would suggest that we plan for him to be off this week and then recheck him in the office next Sunday. Can use 05/19 at 3 PM on my schedule. I will fill out his form as best I can and state that his ability to return will be assessed at that office visit. * Telephone Encounter - Sushma Beckre LPN - 05/12/2024 10:37 AM EST Still dizzy and nauseous and seemed to aggravated it more. Tried to drive and that did not work outeither. Patient is unsure of when he can return back due to note being able to drive. He states maybe give it another week. His says another week at least, longer is ok with them as well. He does need to know his return back to work date so he can call [employer] and let them know. * Telephone Encounter - Lucas Lazo MD - 05/12/2024 9:18 AM EST Yes - it has made it to my desk. In order to complete, please check in with pt today. See how the weekend went and where he stands with the symptoms of concussion and if he is able to determine when he may be able to return to work. * Telephone Encounter - Sushma Becker LPN - 05/08/2024 8:09 AM EST Do you have this paper at your desk * Telephone Encounter - Carol Swanson OSA - 05/07/2024 3:09 PM EST Received a call asking if fax was received by office. Name/Company sending fax: [employer] What fax is pertaining to: FMLA paperwork Date(s) they sent request: 05/07/24 Verified fax number they are sending to is correct (Y or N): Y Callback Number for the clinic to call to verified if fax was received: [phone] documented in this encounter Plan of Treatment Upcoming Encounters Date Type Department Care Team (Late st Contact Info) Description 05/19/2024 3:00 PM EST [facility] [address] [phone] Lucas Lazo MD [address] [place] [address] 07/07/2024 11:30 AM EST Office Visit Otolaryngology [facility] [address] [place] [address] Jcarlos Rodrigues PA-C [address] [place] [address] 07/24/2024 8:40 AM EST [facility] [address] [place] [phone] Lucas Lazo MD [address] [place] [address] Scheduled Procedures Name Priority Associated Diagnoses Date/Ti me COLONOSCOPY FLEXIBLE PROXIMAL DIAGNOSTIC Recall History of colon polyps Health Maintenance Due Date Last Done Comments DISCUSS TOBACCO CESSATION (REFER TO SMARTSET #6882) 1965 Pneumococcal Vaccine: Pediatrics (0 to 5 [...] this encounter Medical Devices Implanted Type Area Sand Mill Operator Facing Sand Device Identifier Shelf Expiration Date Model / Serial / Lot Stent Prec Pro Rx [id number] - [id number] Implanted:Qty : 1 on 11/27/2021 by Miguel Angel Lyons MD at [place] [facility] [place] Right: Carotid [facility] [facility] : [employer] [id number] 02/24/2023 [id number] / / [id number] Angioseal Vip 8 Fr - [id number] Implanted:Qty : 1 on 11/27/2021 by Miguel Angel Lyons MD at [place] [facility] [place] Right: Carotid [employer] [id number] 08/25/2022 [id number] / / [id number] documented as of this encounter Advance Directives * Full Code (Latest Code Status on File) Date Activated Date Inactivated Comments 11/26/2021 10:17 PM 11/28/2021 4:30 PM This order re flects the patients wishes and were consensually agreed upon. Care Teams Snipper Relationship Specialty Start Date End Date Lucas Lazo MD [address] [place] [address] PCP - General 02/26/00 documented as of this encounter
--- OUTSIDE RECORDS SUMMARY | 2024-07-04 16:53 | External Medical Summary | Summary of Care ---
Author Name Unknown Organization [facility] Address [address] [facility] [place] [address] Phone [phone] Care Team Providers Care Forest Technician Name Role Phone Lucas Lazo MD Primary Care Provider +1- [phone] Reason for Visit * Reason Comments Follow Up Patient is here toda y for a follow up visit, still reports some dizziness. Patient reports having a cold since [place] and still isn't feeling well. Patient has been taking Nyquil and other OTC meds to try to help with it. Encounter Details Date Type Department Care Team (Late st Contact Info) Description 06/02/2024 10:20 AM EST Office Visit [facility] [address] [phone] Lucas Lazo MD 226 [place] [address] Acute sinusitis, recurrence not specified, unspecified location*; Concussion without loss of consciousness, subsequent encounter Allergies Active Allergy Reactions Criticality Noted Date Comments Ciprofloxacin Itching,Rash 01/05/2010 documented as of this encounter (statuses as of 06/16/2024) Medications nitroglycerin (NITROSTAT) 0.4 MG SUBL Active OneTouch Verio w/Device KitIndications:T ype 2 diabetes mellitus with hemoglobin A1c goal of less than 7.0% ([facility]) Use up to 4 times a day E11.9 1 Kit 11/03/19 22 Active OneTouch Verio In Vitro Strip (Glucose Blood)Indication s:Type 2 diabetes mellitus with hemoglobin A1c goal of less than 7.0% ([facility]) Use up to 4 times a day E11.9 100 Strip 11 11/03/19 22 Active OneTouch Delica Lancets 33GIndications:T ype 2 diabetes mellitus with hemoglobin A1c goal of less than 7.0% ([facility]) Use up to 4 times per day 100 Each 3 11/03/19 22 Active Aspirin 81 MG Oral Tablet Chewable Take 1 Tablet by mouth in the morning. 30 Tablet 6 06/23/19 23 Active Ezetimibe 10 MG Oral Tablet (Zetia) Take 1 Tablet by mouth in the morning. 01/31/20 23 Active Cetirizine HCl 10 MG Oral Tablet Chewable (ZyrTEC) Take 1 Tablet by mouth in the morning. Active dexAMETHasone 0.1 % Ophthalmic SuspensionIndica tions:Dermatitis of both ear canals Apply 4 drops to both ear canals two times a day for 7 days. Then two times a day as needed for itching/dryness . 5 mL 3 07/05/19 24 Active Additional Information Patient not taking.Reported on 06/02/2024 Betamethasone Dipropionate 0.05 % External Cream (Diprosone)Indic ations:Dermatiti s of both ear canals Apply topically to both external ears two times a day for 7 days. Then two times a day as needed for itching/dryness . 30 g 3 07/05/19 24 Active Additional Information Patient not taking.Reported on 06/02/2024 Fluticasone Propionate 50 MCG/ACT Nasal Suspension (Flonase)Indicat ions:Chronic rhinitis Administer 2 Sprays into each nostril in the morning. 18 mL 1 07/05/19 24 Active Additional Information Patient not taking.Reported on 06/02/2024 Metoprolol Succinate ER 100 MG Oral Tablet Extended Release 24 Hour (toPROL XL) TAKE 1 TABLET BY MOUTH IN THE MORNING 90 Tablet 3 09/25/19 24 Active Levothyroxine Sodium 75 MCG Oral Tablet (Levoxyl)Indicat ions:Hypothyroid ism, unspecified type TAKE 1 TABLET BY MOUTH ONCE DAILY AT LEAST 30 MINUTES PRIOR TO BREAKFAST OR OTHER MEDS 90 Tablet 2 12/27/19 24 Active Entresto 97-103 MG Oral Tablet Take 1 Tablet by mouth in the morning and 1 Tablet before bedtime. 12/19/19 24 Active Famotidine 20 MG Oral Tablet (Pepcid)Indicati ons:Urticaria, chronic Take 1 Tablet by mouth in the morning and 1 Tablet before bedtime. 180 Tablet 2 03/07/20 24 Active Montelukast Sodium 10 MG Oral Tablet (Singulair) Take 1 Tablet by mouth in the morning. 90 Tablet 2 03/07/20 24 Active Apixaban 5 MG Oral Tablet (Eliquis) 1 Tablet. 03/21/20 24 Active Amoxicillin-Pot Clavulanate 875-125 MG Oral Tablet (Augmentin)Indic ations:Acute sinusitis, recurrence not specified, unspecified location Take 1 Tablet by mouth in the morning and 1 Tablet before bedtime. 20 Tablet 06/02/19 25 Active Amoxicillin-Pot Clavulanate 875-125 MG Oral Tablet (Augmentin)Indic ations:Acute sinusitis, recurrence not specified, unspecified location Take 1 Tablet by mouth in the morning and 1 Tablet before bedtime. 20 Tablet 05/09/20 24 025 Discontin ued(Refil l) Amoxicillin-Pot Clavulanate 875-125 MG Oral Tablet (Augmentin)Indic ations:Acute sinusitis, recurrence not specified, unspecified location Take 1 Tablet by mouth in the morning and 1 Tablet before bedtime. 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 Impingement syndrome, shoulder, left 09/26/2017 DDD (degenerative disc disease), lumbar 05/02/20 18 Nonischemic cardiomyopathy 11/10/2014 Type 2 diabetes [...] as of this encounter (statuses as of 06/16/2024) Resolved Problems Problem Noted Date Diagnosed Date Resolved Date Chest discomfort 09/23/2014 09/04/2018 Abnormal stress echo 09/23/2014 019 Ischemic cardiomyopathy 09/23/201411/26 OBSTIPATION 09/27/2009 10/26/2010 Abdominal pain, generalized 09/24/2009 10/26/2010 HYPERGLYCEMIA 09/24/2009 10/26/2010 Abnormal glucose tolerance test 08/10/2008 10/26/2010 Chest pain 06/30/2008 10/26/2010 COSTOCHONDRITIS 06/30/2008 10/26/2010 BACKACHE NOS 10/26/2010 documented as of this encounter (statuses as of 06/16/2024) Immunizations Name Administration Dates Next Due TD, [...] Sign Reading Time Taken Comments Blood Pressure 138/78 06/02/2024 10:18 AM EST Pulse 86 06/02/2024 10:18 AM EST Temperature 37 C (98.6 F) 06/02/2024 10:18 AM EST Respiratory Rate 16 06/02/2024 10:18 AM EST Oxygen Saturation 95% 06/02/2024 10:18 AM EST Inhaled Oxygen Concentration - - Weight 111.6 kg (246 lb) 06/02/2024 10:18 AM EST Height 177.8 cm (5' 10") 06/02/2024 10:18 AM EST Body Mass Index 35.3 06/02/2024 10:18 AM EST documented in this encounter Functional Status [...] Progress Notes * Lucas Lazo MD - 06/02/2024 10:32 AM EST Subjective: Helio Salas is a 59 year old male here today for Chief Complaint Patient presents with Follow Up Patient is here today for a follow up visit, still reports some dizziness. Patient reports having acold since [place] and still isn't feeling well. Patient has been taking Nyquil and other OTC meds to try to help with it. Here for follow up of recent concussion and evaluation of ability to return to work. He has been trying to increase activity - but is still having increased symptoms of his concussion - fatigue, dizziness, mental fog. Especially with increased activity. Does not feel that he could tolerate the amount of activity required for work yet. Also has developed symptoms of resp illness. Chest congestion. Productive cough, sinus congestion Never fever. Hot and chills. Fatigue Headache - across the back. Past Medical History: Diagnosis Date Backache Benign [...] by Miguel Angel Lyons MD [place] [facility] [place]ONOSCOPY W/ LESION REMOVAL, SNARE 10/12/10 several polyps, pathshows adenomatous tissue, and no inflammation in small bowel repeat in 3 years,IH, EH diverticulosis COLONOSCOPY, DIAGNOSTIC (RECTUM) 11/14/2017 adenomatous polyp, diverticulosis, repeat 5 yrs/COLONOSCOPY FLEXIBLE PROXIMAL DIAGNOSTIC performed by Rigoberto Perez MD at ENDOSCOPY [facility] CORONARY ANGIOGRAPHY W/LEFT HEART CATH 09/29/2014 CORONARY ANGIOGRAPHY W/LEFT HEART CATH performed by Anisha Marx MD at [facility]ARDIAC LABS [facility] EGD, FLEXIBLE, DIAGNOSTIC 11/05/09 wnl INJECT DX/THER SUBSTANCE INTERLAMINAR LUMBAR/SACRAL W IMAGE GUIDE 02/18/2018 INJECTION SPINE LUMBAR OR SACRAL performed by Abhijit Miner DO at OR [facility] REMOVAL OF KIDNEY STONE 2002 Kidney Stone Removal WILD STRESS TREADMILL 11/27 Negative TRANSCATH STENT-CAROTID ARTERY, W/EMBOL PROTECTION N/A 11/27/2021 CAROTID STENT WITH DISTAL PROTECTION performed by Miguel Angel Lyons MD at [place] [facility] [place] VERTEBRAL ARTERY CATHETER PLACEMENT N/A 11/27/2021 CATHETER PLACEMENT VERTEBRAL ARTERY, performed by Miguel Angel Lyons MD at [place] [facility] [place] Review of patient's allergies indicates: Allergen Reactions [...] 1 Tablet by mouth in the morning. Metoprolol Succinate ER 100 MG Oral Tablet [...] the morning. (Patient not taking: Reported on 06/02/2024) dexAMETHasone 0.1 % Ophthalmic Suspension Apply 4 drops to both ear canals two times a day for 7 days. Then two times a day as needed for itching/dryness. (Patient not taking: Reported on 05/09/2024)5 mL 3 Betamethasone Dipropionate 0.05 % External Cream (Diprosone) Apply topically to both external ears two times a day for 7 days. Then two times a day as needed for itching/dryness. (Patient not taking:Reported on 06/02/2024) 30 g 3 Fluticasone Propionate 50 MCG/ACT Nasal Suspension (Flonase) Administer 2 Sprays into each nostril in the morning. (Patient not taking: Reported on 05/09/2024) 18 mL 1 No current facility-administered medications for this visit. Objective: BP 138/78 | Pulse 86 | Temp 98.6 F (37 C) (Tympanic) | Resp 16 | Ht 5' 10" (1.778 m)| Wt 246 lb (111.6 kg) | SpO2 95% | BMI 35.30 kg/m | BSA 2.35 m GEN: NAD HEENT: PERRLA, EOMI, conjunctiva not injected or icteric. EACs clear of obstruction, inflammation, drainage. TM's normal without erythema or lesion. No fluid or infection seen in middle ear space. Nares clear of obstruction, lesion, drainage. OP without tonsillar enlargement or exudate, MMM, no lesion. NECK: Supple with no LAD, TM, JVD CHEST: CTA B CV: RRR Neuro: CN's 2-12 intact. Sensation intact to light touch throughout. Motor strength 5/5 in all extremities. Reflexes 2+ and symmetric. Walks with a normal, steady gait. No tremors. Coordination intact. Assessment and Plan: Acute sinusitis, recurrence not specified, unspecified location (Primary) - Amoxicillin-Pot Clavulanate 875-125 MG Oral Tablet (Augmentin); Take 1 Tablet by mouth in the morning and 1 Tablet before bedtime. Concussion without loss of consciousness, subsequent encounter -not able to return to work yet - new letter sent to [employer]. Call for new or worsening symptoms.Continue to try and increase activity as tolerated. Re-assess in 1 week. Check-out note: Please schedule for visit Saturday 06/10 at 1 PM 30 min with pt and chart review, letter creation, paperwork Lucas Lazo MD documented in this encounter Nursing Notes * Lina Arcos, MED ASSIST - 06/02/2024 10:22 AM EST The patient has been properly identified by confirmation of name and date of . Chief Complaint Patient presents with Follow Up Patient is here today for a follow up visit, still reports some dizziness. Patient reports having acold since and still isn't feeling well. Patient has been taking Nyquil and other OTC meds to try to help with it. documented in this encounter Plan of Treatment Upcoming Encounters Date Type Department Care Team (Late st Contact Info) Description 07/07/2024 11:30 AM EST Office Visit Otolaryngology [facility] [address] [place] [address] Jcarlos Rodrigues PA-C [address] [place] [address] 07/24/2024 8:40 AM EST [facility] [address] [facility] [place] [phone] Lucas Lazo MD 226 [facility] [place], [place] [id number] Scheduled Procedures Name Priority Associated Diagnoses Date/Ti me COLONOSCOPY FLEXIBLE PROXIMAL DIAGNOSTIC Recall History of colon polyps Health Maintenance Due Date Last Done Comments DISCUSS TOBACCO CESSATION (REFER TO SMARTSET #6492) 1965 Pneumococcal Vaccine: 50+ Years (1 of [...] this encounter Medical Devices Implanted Type Area Manager Payer Device Identifier Shelf Expiration Date Model / Serial / Lot Stent Prec Pro Rx [id number] - [id number] Implanted:Qty : 1 on 11/27/2021 by Miguel Angel Lyons MD at [place] [facility] [place] Right: Carotid [facility] : [employer] [id number] 02/24/2023 [id number] / / [id number] Angioseal Vip 8 Fr - [id number] Implanted:Qty : 1 on 11/27/2021 by Miguel Angel Lyons MD at [place] [facility] [place] Right: Carotid [employer] [id number] 08/25/2022 [id number] / / [id number] documented as of this encounter Visit Diagnoses Diagnosis Acute sinusitis, recurrence not specified, unspecified location- Primary Concussion without loss of consciousness, subsequent encounter documented in this encounter Advance Directives * Full Code (Latest Code Status on File) Date Activated Date Inactivated Comments 11/26/2021 10:17 PM 11/28/2021 4:30 PM This order re flects the patients wishes and were consensually agreed upon. Care Teams Forest Technician Relationship Specialty Start Date End Date Lucas Lazo MD PCP - General 02/26/00 documented as of this encounter
--- OUTSIDE RECORDS SUMMARY | 2024-07-04 16:53 | External Medical Summary | Summary of Care ---
Author Name Unknown Organization [facility] Address [address] [facility] [place] [address] Phone [phone] Care Team Providers Care Basket Hand Weaver Name Role Phone Lucas Lazo MD Primary Care Provider [phone]- [phone] Reason for Visit * Reason Comments Follow Up Patient is here toda y for a follow up visit for concussion. Patient reports that he still has dizzy spells but they've lessened some. Encounter Details Date Type Department Care Team (Late st Contact Info) Description 05/19/2024 3:00 PM EST Office Visit [facility] [address] [facility] [place] [phone] Lucas Lazo MD [address] [facility] [place] [address] Concussion without loss of consciousness, initial encounter* Allergies Active Allergy Reactions Criticality Noted Date Comments Ciprofloxacin Itching,Rash 01/05/2010 documented as of this encounter (statuses as of 06/02/2024) Medications nitroglycerin (NITROSTAT) 0.4 MG SUBL Active OneTouch Verio w/Device KitIndications:T ype 2 diabetes mellitus with hemoglobin A1c goal of less than 7.0% ([facility]) Use up to 4 times a day E11.9 1 Kit 11/03/19 22 Active OneTouch Verio In Vitro Strip (Glucose Blood)Indication s:Type 2 diabetes mellitus with hemoglobin A1c goal of less than 7.0% ([facility]) Use up to 4 times a day E11.9 100 Strip 11 11/03/19 22 Active Angi Edgar 33GIndications:T ype 2 diabetes mellitus with hemoglobin A1c goal of less than 7.0% ([facility]) Use up to 4 times per [...] Tablet 05/09/20 24 025 Discontin ued(Refil l) documented as of this encounter (statuses as of 06/02/2024) Active Problems Problem Noted Date Diagnosed Date Trigeminal neuralgia 10/08/2023 Symptomatic stenosis of righ t carotid artery without infarction 11/28/2021 Atherosclerosis of [place] co ronary artery without angina pectoris 06/22/2021 [...] as of this encounter (statuses as of 06/02/2024) Resolved Problems Problem Noted Date Diagnosed Date Resolved Date Chest discomfort 09/23/2014 09/04/2018 Abnormal stress echo 09/23/2014 019 Ischemic cardiomyopathy 09/23/201411/26 OBSTIPATION 09/27/2009 10/26/2010 Abdominal pain, generalized 09/24/2009 10/26/2010 HYPERGLYCEMIA 09/24/2009 10/26/2010 Abnormal glucose tolerance test 08/10/2008 10/26/2010 Chest pain 06/30/2008 10/26/2010 COSTOCHONDRITIS 06/30/2008 10/26/2010 BACKACHE NOS 10/26/2010 documented as of this encounter (statuses as of 06/02/2024) Immunizations Name Administration Dates Next Due TD, [...] Sign Reading Time Taken Comments Blood Pressure 126/75 05/19/2024 3:03 PM EST Pulse 66 05/19/2024 3:03 PM EST Temperature 37 C (98.6 F) 05/19/2024 3:03 PM EST Respiratory Rate 16 05/19/2024 3:03 PM EST Oxygen Saturation 96% 05/19/2024 3:03 PM EST Inhaled Oxygen Concentration - - Weight 113.9 kg (251 lb) 05/19/2024 3:03 PM EST Height 177.8 cm (5' 10") 05/19/2024 3:03 PM EST Body Mass Index 36.01 05/19/2024 3:03 PM EST documented in this encounter Functional Status * Are you deaf or do you have serious difficulty hearing? Answer Date of Assessment Author No 11/26/2021 9:21 PM Dena Salinas RN * Are you blind or do you have serious difficulty seeing, even when wearing glasses? Answer Date of Assessment Author No 11/26/2021 9:21 PM EDT Dena Mathew RN * Do you have serious [...] Notes * Lucas Lazo MD - 06/02/2024 9:55 PM EST Subjective: Helio Salas is a 59 year old male here today for Chief Complaint Patient presents with Follow Up Patient is here today for a follow up visit for concussion. Patient reports that he still has dizzyspells but they've lessened some. Here for follow up of fall and concussion. Please see ED notes and previous note for details. Pt has attempted light activity - but finds that it worsens headache, dizziness and ability for focus. Not safe for him to return to work at this time. Past Medical History: Diagnosis Date Backache Benign [...] by Miguel Angel Lyons [place] [facility] [place] W/ LESION REMOVAL, SNARE 10/12/10 several polyps, pathshows adenomatous tissue, and no inflammation in small bowel repeat in 3 years,IH, EH diverticulosis COLONOSCOPY, DIAGNOSTIC (RECTUM) 11/14/2017 adenomatous polyp, diverticulosis, repeat 5 yrs/COLONOSCOPY FLEXIBLE PROXIMAL DIAGNOSTIC performed by Rigoberto Perez MD at ENDOSCOPY [facility] CORONARY ANGIOGRAPHY W/LEFT HEART CATH 09/29/2014 CORONARY ANGIOGRAPHY W/LEFT HEART CATH performed by Anisha Marx MD [place] [facility] [place]GD, FLEXIBLE, DIAGNOSTIC 11/05/09 wnl INJECT DX/THER SUBSTANCE INTERLAMINAR LUMBAR/SACRAL W IMAGE GUIDE 02/18/2018 INJECTION SPINE LUMBAR OR SACRAL performed by Abhijit Miner DO at OR [facility] REMOVAL OF KIDNEY STONE 2002 Kidney Stone Removal WILD STRESS TREADMILL 11/27 Negative TRANSCATH STENT-CAROTID ARTERY, W/EMBOL PROTECTION N/A 11/27/2021 CAROTID STENT WITH DISTAL PROTECTION performed by Miguel Angel Lyons MD [place] [facility] VERTEBRAL ARTERY CATHETER PLACEMENT N/A 11/27/2021 CATHETER PLACEMENT VERTEBRAL ARTERY, performed by Miguel Angel Lyons MD [place] [facility] Review of patient's allergies indicates: Allergen Reactions [...] 5 MG Oral Tablet (Eliquis) 1 Tablet. Ezetimibe 10 MG Oral Tablet (Zetia) Take [...] taking: Reported on 05/09/2024) 18 mL 1 Amoxicillin-Pot Clavulanate 875-125 MG Oral Tablet (Augmentin) Take 1 Tablet by mouth in the morning and 1 Tablet before bedtime. 20 Tablet 0 No current facility-administered medications for this visit. Objective: BP 126/75 | Pulse 66 | Temp 98.6 F (37 C) (Tympanic) | Resp 16 | Ht 5' 10" (1.778 m)| Wt 251 lb (113.9 kg) | SpO2 96% | BMI 36.01 kg/m | BSA 2.37 m GEN: NAD HEENT: Benign NECK: Supple with no LAD, TM, JVD CHEST: CTA B CV: RRR ABD: Soft, NT/ND, No HSM, NABS EXT: No c,c,e Assessment and Plan: Concussion without loss of consciousness, initial encounter (Primary) -reviewed routine treatment suggestions. -unable to return to work yet. Check back in 1 week. 25 min with pt and chart review. Lucas Lazo MD documented in this encounter Nursing Notes * Lina Arcos MED ASSIST - 05/19/2024 3:07 PM EST The patient has been properly identified by confirmation of name and date of . Chief Complaint Patient presents with Follow Up Patient is here today for a follow up visit for concussion. Patient reports that he still has dizzyspells but they've lessened some. documented in this encounter Plan of Treatment Upcoming Encounters Date Type Department Care Team (Late st Contact Info) Description 06/10/2024 1:00 PM EST [facility] [address] [place] [phone] Lucas Lazo MD [address] [place] [address] 07/07/2024 11:30 AM EST Office Visit Otolaryngology [facility] [address] [place] [address] Jcarlos Rodrigues PA-C [address] [place] [address] 07/24/2024 8:40 AM EST [facility] [address] [place] [phone] Lucas Lazo MD [address] [place] [address] Scheduled Procedures Name Priority Associated Diagnoses Date/Ti me COLONOSCOPY FLEXIBLE PROXIMAL DIAGNOSTIC Recall History of colon polyps Health Maintenance Due Date Last Done Comments DISCUSS TOBACCO CESSATION (REFER TO SMARTSET #4395) 1965 Pneumococcal Vaccine: 50+ Years (1 of [...] this encounter Medical Devices Implanted Type Area Fruit Dryer Device Identifier Shelf Expiration Date Model / Serial / Lot Stent Prec Pro Rx [id number] - [id number] Implanted:Qty : 1 on 11/27/2021 by Miguel Angel Ly[place] [facility] [place]: [facility] [id number] 02/24/2023 [id number] / / [id number] Angioseal Vip 8 Fr - [id number] Implanted:Qty : 1 on 11/27/2021 by Miguel Angel Lyons MD at [facility] Right: Carotid [employer] [id number] 08/25/2022 [id number] / / [id number] documented as of this encounter Visit Diagnoses Diagnosis Concussion without loss of consciousness, initial encounter- Primary documented in this encounter Advance Directives * Full Code (Latest Code Status on File) Date Activated Date Inactivated Comments 11/26/2021 10:17 PM 11/28/2021 4:30 PM This order re flects the patients wishes and were consensually agreed upon. Care Teams Basket Hand Weaver Relationship Specialty Start Date End Date Lucas Lazo MD PCP - General 02/26/00 documented as of this encounter
--- OUTSIDE RECORDS SUMMARY | 2024-07-04 16:53 | External Medical Summary | Summary of Care ---
Author Name Unknown Organization [facility] Address [address] [facility] [place] [address] Phone [phone] Care Team Providers Care Helmet Coverer Name Role Phone Lucas Lazo MD Primary Care Provider [phone]- [phone] Reason for Visit * Reason Onset Date Comments Letter Requests 06/10/2024 Encounter Details Date Type Department Care Team (Late st Contact Info) Description 06/10/2024 Telephone [facility] [address] [facility] [address] [place] [phone] Lucas Lazo MD [address] [place] [address] Letter Requests Allergies Active Allergy Reactions Criticality Noted Date Comments Ciprofloxacin Itching,Rash 01/05/2010 documented as of this encounter (statuses as of 06/10/2024) Medications nitroglycerin (NITROSTAT) 0.4 MG SUBL Active [...] hemoglobin A1c goal of less than 7.0% ([facility]) Use up to 4 times per [...] as of this encounter (statuses as of 06/10/2024) Active Problems Problem Noted Date Diagnosed Date Trigeminal neuralgia 10/08/2023 Symptomatic stenosis of righ t carotid artery without infarction 11/28/2021 Atherosclerosis of [place] co ronary artery without angina pectoris 06/22/2021 [...] as of this encounter (statuses as of 06/10/2024) Resolved Problems Problem Noted Date Diagnosed Date Resolved Date Chest discomfort 09/23/2014 09/04/2018 Abnormal stress echo 09/23/2014 019 Ischemic cardiomyopathy 09/23/201411/26 OBSTIPATION 09/27/2009 10/26/2010 Abdominal pain, generalized 09/24/2009 10/26/2010 HYPERGLYCEMIA 09/24/2009 10/26/2010 Abnormal glucose tolerance test 08/10/2008 10/26/2010 Chest pain 06/30/2008 10/26/2010 COSTOCHONDRITIS 06/30/2008 10/26/2010 BACKACHE NOS 10/26/2010 documented as of this encounter (statuses as of 06/10/2024) Immunizations Name Administration Dates Next Due TD, [...] Encounter - Lina Arcos MED ASSIST - 06/10/2024 4:45 PM EST Letter was faxed to [employer]. Called patient and informed him that it was faxed and the letter would be up front for pick pulling machine tender at his earliest convenience. Patient voiced understanding. * Telephone Encounter - Lucas Lazo MD - 06/10/2024 1:24 PM EST Telemed visit with pt today. He is medically cleared to return to work. Letter is at my desk - please fax to [employer] - should have fax number in chart on other forms. Cannotify pt once faxed and offer if he wishes to pick pulling machine tender original. documented in this encounter Plan of Treatment Upcoming Encounters Date Type Department Care Team (Late st Contact Info) Description 07/07/2024 11:30 AM EST Office Visit Otolaryngology [facility] [address] [place] [address] Jcarlos Rodrigues PA-C [address] [place] [address] 07/24/2024 8:40 AM EST [facility] [address] [place] [phone] Lucas Lazo MD [address] [place] [address] Scheduled Procedures Name Priority Associated Diagnoses Date/Ti me COLONOSCOPY FLEXIBLE PROXIMAL DIAGNOSTIC Recall History of colon polyps Health Maintenance Due Date Last Done Comments DISCUSS TOBACCO CESSATION (REFER TO SMARTSET #4443) 1965 Pneumococcal Vaccine: 50+ Years (1 of [...] this encounter Medical Devices Implanted Type Area Officer Lieutenant Device Identifier Shelf Expiration Date Model / Serial / Lot Stent Prec Pro Rx [id number] - [id number] Implanted:Qty : 1 on 11/27/2021 by Miguel Angel Lyons MD at [place] [facility] Right: Carotid [facility] [employer] [id number] 02/24/2023 [id number] / / [id number] Angioseal Vip 8 Fr - [id number] Implanted:Qty : 1 on 11/27/2021 by Miguel Angel Lyons MD at [place] [facility] Right: Carotid [employer] [id number] 08/25/2022 [id number] / / [id number] documented as of this encounter Advance Directives * Full Code (Latest Code Status on File) Date Activated Date Inactivated Comments 11/26/2021 10:17 PM 11/28/2021 4:30 PM This order re flects the patients wishes and were consensually agreed upon. Care Teams Helmet Coverer Relationship Specialty Start Date End Date Lucas Lazo MD PCP - General 02/26/00 documented as of this encounter
--- NOTE | 2024-07-04 17:23 | Critical Care Consultation ---
Date of Consultation July 04, 2024 Assessment & Plan (1) Bilateral pulmonary embolism: Patient presents to the ER with extensive bilateral pulmonary emboli. He was mildly hypotensive on admission, but this is resolved. He had presyncopal symptoms earlier today. Will admit the patient to ICU with close monitoring of telemetry and vital signs. Continue heparin infusion. Will hold on systemic thrombolysis at this time as his symptoms are improving and he is hemodynamically stable and not requiring supplemental oxygen. Should he have a clinical decline, will need to consider half dose tPA and possible transfer for thrombectomy. Will obtain a baseline echocardiogram and ultrasound of his lower extremities. Troponin minimally elevated. BNP significantly elevated to 1314. Patient would benefit from lifelong anticoagulation given his underlying atrial fibrillation and unprovoked PE. Disposition: ICU overnight and likely downgrade tomorrow if he remains stable. History of Present Illness Reason for Consultation: Bilateral pulmonary embolism Attending Physician: Ander Rodriguez MD History of Present Illness 59-year-old male with a history of atrial fibrillation, noncompliant with anticoagulation, nonischemic cardiomyopathy, diet-controlled diabetes mellitus, tobacco abuse since the age of 10, coronary artery disease, dyslipidemia and hypertension who presented to the hospital for about 1 week of shortness of breath. Patient denies any chest pain, fevers, chills or night sweats. He relates that over the past 3 to 4 weeks he has been dealing with sinus infections. In the ER he was found to be mildly hypotensive but his blood pressures have been improved. He is saturating well on room air. He was dizzy when standing earlier today. He had a chest CTA which revealed extensive bilateral pulmonary emboli involving a small saddle embolus. Dilation of the right heart chambers was noted. Trace right pleural effusion. Subpleural right lower lobe groundglass opacity noted favoring possible atelectasis versus infarct. Patient denies any personal history of malignancy. He denies any prior history of VTE. He denies any family history of VTE. Allergies Allergy/AdvReac Type Severity Reaction Status Date / Time Cipro Allergy Unknown Itching Verified 09/05/14 14:10 and rash ciprofloxacin Allergy Unknown Itching Verified 03/21/24 13:58 and rash Home Medications Medication Instructions Recorded Confirmed Type levothyroxine 75 mcg tablet 75 mcg PO DAILY 03/15/18 07/04/24 History metoprolol succinate 100 mg 100 mg PO QAM 03/15/18 07/04/24 History tablet,extended release 24 hr (Toprol XL) montelukast 10 mg tablet 10 mg PO QAM 11/12/19 07/04/24 History nitroglycerin 0.4 mg sublingual 0.4 mg sublingual Q5M PRN chest 11/14/19 0 07/04/24 Rx tablet pain #25 tabs cetirizine 10 mg tablet (Zyrtec) 10 mg PO DAILY 01/12/22 07/04/24 History aspirin 81 mg tablet,delayed 81 mg PO DAILY 01/04/23 07/04/24 History release (Adult Low Dose Aspirin) famotidine 20 mg tablet 20 mg PO BID #180 tabs 08/07/23 07/04/24 Rx sacubitril 97 mg-valsartan 103 mg 1 tab PO BID #180 tabs 02/20/24 07/04/24 Rx tablet (Entresto) apixaban 5 mg tablet (Eliquis) 5 mg PO BID #180 tabs 03/21/24 07/04/24 Rx Patient History Medical History (Updated 07/04/24 @ 17:20 by Sammy Uriarte MD) Obesity Superficial thrombophlebitis Hypothyroidism Dizziness Diabetes mellitus, type II Tobacco use Nonischemic cardiomyopathy Surgical History History of cardiac cath 2015 Family History Brother Heart disease Father Heart disease Mother Lung cancer Social History (Updated 07/04/24 @ 16:40 by Jennifer Garcia PA-C) Smoking Status: Current every day smoker Tobacco Type: Cigarettes packs per day: 0.5; Cigarettes Per Day: 1ppd x 40 years; Hx Alcohol Use: No Hx Substance Use: No Preferred Language: [place] Leonean Communication Ability: Effective Associate Professor Of Automation Required: No Beliefs That Will Affect Care: None Current Living Situation: Spouse Feels Safe at Home: Yes Assistive Devices: None Review of Systems Review of Systems: All systems reviewed & are unremarkable except as noted in HPI & below Physical Exam Physical Exam: Constitutional: Patient appears to be of their stated age. Patient is in no apparent distress. Patient is well-developed. Eyes: Pupils are equal round and reactive to light. Conjunctivae are normal. Anicteric sclera. Ears nose, mouth and throat: Mallampati class 2. Normal posterior oropharynx. Uvula is midline. Neck: Trachea is midline. Visual inspection is normal. Respiratory: Clear to auscultation bilaterally. No use of accessory muscles. No significant clubbing noted. Cardiovascular: Regular rate and rhythm. No murmurs. No edema. Gastrointestinal: Normal bowel sounds, soft, nontender and nondistended. No hepatosplenomegaly noted. Musculoskeletal: No cyanosis. Patient is able to move all extremities. Strength is 5 out of 5 in the upper and lower extremities. Skin: No rashes, warm dry and intact. Neurologic: No obvious focal neurological deficits seen. Psychiatric: Alert and oriented x3 with a euthymic affect. Results & Data Results & Data Vital Signs (Past 12 Hours) Vital Signs Temp Pulse Pulse Resp BP BP Pulse Ox 07/04/24 16:33 105 H 21 95 07/04/24 16:21 108 H 24 95 07/04/24 16:17 114 H 07/04/24 16:16 138/87 07/04/24 16:15 108 H 26 H 93 07/04/24 16:01 116/91 07/04/24 16:00 105 H 34 H 97 07/04/24 16:00 102 H 20 116/91 93 07/04/24 15:51 113 H 29 H 07/04/24 15:45 129/74 07/04/24 15:45 109 H 21 95 07/04/24 15:44 97 H 112/79 07/04/24 15:42 112/79 07/04/24 15:42 112/79 07/04/24 15:42 100 H 24 94 07/04/24 15:30 95 H 22 94 07/04/24 15:24 101 H 23 94 07/04/24 15:03 109 H 23 94 07/04/24 14:14 96 H 20 105/88 94 07/04/24 13:21 100 H 22 94/78 L 97 07/04/24 12:57 92 H 22 83/61 L 95 07/04/24 12:44 90 20 95/58 L 95 07/04/24 12:31 101 H 24 89/70 L 92 07/04/24 12:12 118 H 106/82 07/04/24 12:12 120 H 07/04/24 12:03 07/04/24 12:00 113 H 22 106/82 95 07/04/24 11:42 36.7 C 110 H 18 124/73 94 O2 Del Method 07/04/24 16:33 07/04/24 16:21 07/04/24 16:17 07/04/24 16:16 07/04/24 16:15 07/04/24 16:01 07/04/24 16:00 07/04/24 16:00 07/04/24 15:51 07/04/24 15:45 07/04/24 15:45 07/04/24 15:44 07/04/24 15:42 07/04/24 15:42 07/04/24 15:42 07/04/24 15:30 07/04/24 15:24 07/04/24 15:03 07/04/24 14:14 Room Air 07/04/24 13:21 Room Air 07/04/24 12:57 Room Air 07/04/24 12:44 Room Air 07/04/24 12:31 Room Air 07/04/24 12:12 07/04/24 12:12 07/04/24 12:03 Room Air 07/04/24 12:00 Room Air 07/04/24 11:42 Room Air Coding Level of Care Code 80047 INT INP/OBS CARE 255MIN Diagnoses Bilateral pulmonary embolism I26.99
--- NOTE | 2024-07-04 17:32 | Cardiology Consultation ---
Date of Consultation July 04, 2024 Assessment & Plan (1) Bilateral pulmonary embolism: (2) Tachycardia: (3) Permanent atrial fibrillation: (4) CAD (coronary artery disease): (5) Nonischemic cardiomyopathy: Plan 59-year-old man with nonocclusive CAD and nonischemic cardiomyopathy admitted with extensive pulmonary embolism and mild tachycardia in the context of permanent atrial fibrillation. Some degree of tachycardia is an expected physiologic response, as such would n ot be overly aggressive in blunting his rate response. Would seem reasonable to aim for ventricular rate less than 120 bpm, could continue his usual metoprolol succinate 100 mg daily and augment with small doses of metoprolol tartrate (25 mg orally every 8 hours or 5 mg IV every 4 hours) as needed to avoid excess tachycardia. Currently anticoagulated with heparin, once course of heparin is completed strongly encouraged patient to initiate apixaban 5 mg twice daily (he was prescribed this but had not started for personal reasons). Check echocardiogram to assess right heart strain, in the absence of hypotension would agree that thrombolytic therapy risks may not exceed benefits. Fortunately, no chest pain, troponin elevation, or ECG findings to suggest ongoing myocardial ischemia. Likely, his CAD remains nonocclusive. Volume status appears appropriate, no clinical evidence of heart failure, he is on Entresto and does not require routine diuretics. Cardiac issues seem to be secondary to current pulmonary issues (acute pulmonary emboli), no specific recommendations to add. Dr. Castellon will be rounding on the weekend, please contact him if additional cardiac concerns arise. History of Present Illness Reason for Consultation: A-fib with RVR Requesting Physician: Ander Rodriguez MD Attending Physician: Ander Rodriguez MD History of Present Illness 59-year-old man with CAD (nonobstructive, 30% LAD and circumflex lesions 2014), recurrent nonischemic cardiomyopathy (EF varying from 35 to 60% since 2014), carotid stenosis, and permanent atrial fibrillation (not anticoagulated/metoprolol) who noted about a week of dyspnea on exertion and was found today to have extensive pulmonary emboli and mild tachycardia. He denies chest pain at any time and notes no leg edema or pain. He did have a concussion in April followed by a viral syndrome, but has otherwise not been inactive or had any surgeries. Cardiac data: ECG on admission showed atrial fibrillation with ventricular rate 127 bpm, old anterior infarct. Compared with 05/06/2024 study, ventricular rate increased by 52 bpm. Chest x-ray unremarkable. Chest CT showed extensive bilateral pulmonary emboli including small saddle embolism with dilation of right heart and possible right heart strain. Initial troponin value was 26 and 23. Echocardiogram February 2024 showed EF 4045% with mild global hypokinesis and no significant valvular disease on technically limited Doppler. Compared with July 2023 study, left ventricular systolic function had declined slightly. At the time my evaluation this evening, the patient had no somatic complaints at rest. No dyspnea, chest pain, palpitations, or lightheadedness. Telemetry showed atrial fibrillation with ventricular rate 100-110 bpm. Allergies Allergy/AdvReac Type Severity Reaction Status Date / Time Cipro Allergy Unknown Itching Verified 09/05/14 14:10 and rash ciprofloxacin Allergy Unknown Itching Verified 03/21/24 13:58 and rash Home Medications Medication Instructions Recorded Confirmed Type levothyroxine 75 mcg tablet 75 mcg PO DAILY 03/15/18 07/04/24 History metoprolol succinate 100 mg 100 mg PO QAM 03/15/18 07/04/24 History tablet,extended release 24 hr (Toprol XL) montelukast 10 mg tablet 10 mg PO QAM 11/12/19 07/04/24 History nitroglycerin 0.4 mg sublingual 0.4 mg sublingual Q5M PRN chest 11/14/19 07/04/24 Rx tablet pain #25 tabs cetirizine 10 mg tablet (Zyrtec) 10 mg PO DAILY 01/12/22 07/04/24 History aspirin 81 mg tablet,delayed 81 mg PO DAILY 01/04/23 07/04/24 History release (Adult Low Dose Aspirin) famotidine 20 mg tablet 20 mg PO BID #180 tabs 08/07/23 07/04/24 Rx sacubitril 97 mg-valsartan 103 mg 1 tab PO BID #180 tabs 02/20/24 07/04/24 Rx tablet (Entresto) apixaban 5 mg tablet (Eliquis) 5 mg PO BID #180 tabs 03/21/24 07/04/24 Rx Patient History Medical History Obesity Superficial thrombophlebitis Hypothyroidism Dizziness Diabetes mellitus, type II Tobacco use Nonischemic cardiomyopathy Surgical History History of cardiac cath 2015 Family History Brother Heart disease Father Heart disease Mother Lung cancer Social History Smoking Status: Current every day smoker Tobacco Type: Cigarettes packs per day: 0.5; Cigarettes Per Day: 1ppd x 40 years; Hx Alcohol Use: No Hx Substance Use: No Preferred Language: [place] Communication Ability: Effective 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 Afebrile. BP normotensive. Pulse 105 bpm and irregular. Respirations 20 but unlabored. Skin: no ecchymoses or generalized lesions. HEENT: unremarkable. Neck: JVP at the clavicle at 90 degrees, no carotid bruits. Lungs: Generally clear, few crackles at the right base. No obvious wheezing. No accessory muscle use. Cardiac: Irregular/slightly tachycardic rhythm, normal S1-2, no murmur. Abdomen: benign. Extremities: no edema, pulses intact. Legs were nontender. Neurologic: normal affect and conversation, nonfocal. Results & Data Laboratory Results WBC 13.9, normal hemoglobin and platelet count. Normal electrolytes, BUN 29, creatinine 0.96. Troponin per HPI. BNP 1314 (no historical baseline) PG Care Time/CCT Total # of Minutes Spent Total Time Spent with Patient: Total time spent is greater than 50% in coordination of care (as documented) at patient's floor/unit and/or counseling patient: Coding Level of Care Code 20162 IN/OBS CONSULT LVL 3,45M Diagnoses Bilateral pulmonary embolism I26.99 Tachycardia R00.0 Permanent atrial fibrillation I48.21 Coronary artery disease involving [place] coronary artery of [place] heart without angina pectoris I25.10 Associated angina: without angina Coronary Disease-Associated Artery/Lesion type: [place] artery [place] vs. transplanted heart: [place] heart Nonischemic cardiomyopathy I42.8 (4) CAD (coronary artery disease) Associated angina: without angina Coronary Disease-Associated Artery/Lesion type: [place] artery [place] vs. transplanted heart: [place] heart Qualified Code(s): I25.10 - Atherosclerotic heart disease of [place] coronary artery without angina pectoris
[2024-07-04] MEDS ORDERED: METOPROLOL TARTRATE 1 MG/ML VIAL IV PRN (17:33)
[2024-07-04] MEDS ORDERED: POLYETHYLENE (MIRALAX) 17 GM PACK PO PRN (18:12)
[2024-07-04] MEDS ORDERED: ONDANSETRON INJ 2 MG/ML 2 ML VIAL IV PRN (18:12)
[2024-07-04] MEDS ORDERED: DEXTROSE 50% 50 ML SYRINGE IV PRN (18:12)
[2024-07-04] MEDS ORDERED: GLUCAGON FOR INJ 1 MG VIAL SQ PRN (18:12)
[2024-07-04] MEDS ORDERED: GLUCOSE 10 TAB/TUBE PO PRN (18:12)
[2024-07-04] MEDS ORDERED: ALUMINUM/MAGNESIUM SUSP 30 ML UDC PO PRN (18:12)
[2024-07-04] MEDS ORDERED: ACETAMINOPHEN 325 MG TAB PO PRN (18:12)
[2024-07-04] MEDS ORDERED: GLUCOSE 40% GEL 15 GM TUBE PO PRN (18:12)
[2024-07-04] MEDS ORDERED: CARBOHYDRATES FOR HYPOGLYCEMIA PO PRN (18:12)
[2024-07-04] MEDS: INSULIN ASPART PER UNIT CHARGE SC SCH (19:42)
[2024-07-04] MEDS: VALSARTAN/SACUBITRIL 103/97MG TAB PO SCH (20:30)
[2024-07-04] MEDS: FAMOTIDINE 20 MG TAB PO SCH (20:30)
[2024-07-04 22:17] LABS: ANTI-Xa, UFH(UnfractionatedHep 0.75 IU/ml (0.3-0.7)
--- OUTSIDE RECORDS SUMMARY | 2024-07-05 00:13 | External Medical Summary | Summary of Care ---
Author Name Unknown Organization [facility] Address [address] [facility] [place] [address] Phone [phone] Care Team Providers Care Machinist 2Nd Shift Name Role Phone Lucas Lazo MD Primary Care Provider [phone] Reason for Visit * Reason Comments Congestion Cough Pt is here today for cough and chest congestion. Pt is also having SOB and dizziness and nausea Encounter Details Date Type Department Care Team (Late st Contact Info) Description 07/04/2024 10:40 AM EST Office Visit [facility] [address] [facility] [place] [phone] Randi Walden MD [address] [facility] [place] [address] Atrial fibrillation with RVR ([facility])*; SOB (shortness of breath); Tobacco use disorder; Chronic sinusitis, unspecified location; Chronic rhinitis; Type 2 diabetes mellitus with hemoglobin A1c goal of less than 7.0% ([facility]); Nonischemic cardiomyopathy ([facility]); Type 2 diabetes mellitus with diabetic neuropathy, unspecified whether oil heaterman insulin use ([facility]); Essential (primary) hypertension; Atherosclerosis of [place] coronary artery of [place] heart without angina pectoris; Irregular heart beats Allergies Active Allergy Reactions Criticality Noted Date Comments Ciprofloxacin Itching,Rash 01/05/2010 documented as of this encounter (statuses as of 07/04/2024) Medications nitroglycerin (NITROSTAT) 0.4 MG SUBL Active [...] hemoglobin A1c goal of less than 7.0% ([facility]) Use up to 4 times per day 100 Each 3 11/03/19 22 Active Aspirin 81 MG Oral Tablet Chewable Take 1 Tablet by mouth in the morning. 30 Tablet 6 06/23/19 23 Active Cetirizine HCl 10 MG Oral Tablet Chewable (ZyrTEC) Take 1 Tablet by mouth in the morning. Active dexAMETHasone 0.1 % Ophthalmic SuspensionIndica tions:Dermatitis of both ear canals Apply 4 drops to both ear canals two times a day for 7 days. Then two times a day as needed for itching/dryness . 5 mL 3 07/05/19 24 Active Betamethasone Dipropionate 0.05 % External Cream (Diprosone)Indic ations:Dermatiti s of both ear canals Apply topically to both external ears two times a day for 7 days. Then two times a day as needed for itching/dryness . 30 g 3 07/05/19 24 Active Fluticasone Propionate 50 MCG/ACT Nasal Suspension (Flonase)Indicat ions:Chronic rhinitis Administer 2 Sprays into each nostril in the morning. 18 mL 1 07/05/19 24 Active Metoprolol Succinate ER 100 MG Oral [...] before bedtime. 20 Tablet 06/02/19 25 Active Additional Information Patient not taking.Reported on 07/04/2024 Ezetimibe 10 MG Oral Tablet (Zetia) Take 1 Tablet by mouth in the morning. 01/31/20 23 025 Discontin ued(Patie nt preferenc e/discont inuation) documented as of this encounter (statuses as of 07/04/2024) Active Problems Problem Noted Date Diagnosed Date Trigeminal neuralgia 10/08/2023 Symptomatic stenosis of righ t carotid artery without infarction 11/28/2021 Atherosclerosis of [place] co ronary artery without angina pectoris 06/22/2021 [...] as of this encounter (statuses as of 07/04/2024) Resolved Problems Problem Noted Date Diagnosed Date Resolved Date Chest discomfort 09/23/2014 09/04/2018 Abnormal stress echo 09/23/2014 019 Ischemic cardiomyopathy 09/23/201411/26 OBSTIPATION 09/27/2009 10/26/2010 Abdominal pain, generalized 09/24/2009 10/26/2010 HYPERGLYCEMIA 09/24/2009 10/26/2010 Abnormal glucose tolerance test 08/10/2008 10/26/2010 Chest pain 06/30/2008 10/26/2010 COSTOCHONDRITIS 06/30/2008 10/26/2010 BACKACHE NOS 10/26/2010 documented as of this encounter (statuses as of 07/04/2024) Immunizations Name Administration Dates Next Due TD, Preservative Free 02/28/2017 TDAP, Age 7 and older, IM (Adacel) 01/24/2007 Varicella Zoster Vaccine (Adult) 03/25/2014 documented as of this encounter Social History Tobacco Use Types Packs/Day Years Used Date Smoking Tobacco: Every Day Cigarettes 1 32 Passive Smoke Exposure: Current Smokeless Tobacco: Never Tobacco Cessation:Ready to Q uit: No; Counseling Given: No Alcohol Use Standard Drinks/Week Comments No 0 [...] ages 0-17 years) Not on file 01/20/2024 Food Insecurity Answer Date Recorded Within the past 12 months, y ou worried that your food would run out before you got the money to buy more. Never true 01/20/20 24 Within the past 12 months, t he food you bought just didn't last and you didn't have money to get more. Never true 01/20/2024 Do you need food for this week? No 01/20/2024 Sex and Gender Information Value Date [...] Sign Reading Time Taken Comments Blood Pressure 119/74 07/04/2024 10:40 AM EST Pulse 107 07/04/2024 10:40 AM EST Temperature 36.1 C (97 F) 07/04/2024 10: 40 AM EST Respiratory Rate 18 07/04/2024 10:4 0 AM EST Oxygen Saturation 92% 07/04/2024 10: 40 AM EST Inhaled Oxygen Concentration - - Weight 111.4 kg (245 lb 9.6 oz) 025 10:40 AM EST Height - - Body Mass Index 35.24 06/02/2024 10:18 AM EST documented in this [...] documented in this encounter Progress Notes * Randi Walden MD - 07/04/2024 11:23 AM EST Subjective Helio Salas is a 59 year old male. Chief Complaint Patient presents with Congestion Cough Pt is here today for cough and chest congestion. Pt is also having SOB and dizziness and nausea HPI: Cough Associated symptoms include postnasal drip and shortness of breath. Pertinent negatives include no chest pain, chills, fever, headaches or wheezing. His past medical history is significant for environmental allergies. Here for acute SOB, cough, dizziness Text in this note was generated using an [employer] documentation service. I discussed the use of a device to record and summarize our discussion today. All persons present during the encounter consented to its use History of Present Illness The patient, with a history of diabetes, neuropathy, and chronic rhinitis, presents with worsening breathing difficulty and a chronic cough. He reports a sudden onset of symptoms, severe SOB last Sunday, without any associated fever. Despite taking Singulair and Zyrtec for chronic rhinitis, he has been experiencing continuous drainage and coughing at night, even before the acute onset of symptoms last week. He has a long history of smoking, starting from an early age, and currently smokes half a pack a day. He also reports a burning sensation in his throat and has not eaten since the previous day. He has known heart conditions and has been experiencing fluctuations in blood pressure. Showed Afib with RVR He states that he was diagnosed with Afib 2 mo ago but declined blood thinner Was seeing a cardio at [facility] Known CMP, HTN, type 2 DM, neuropathy, chronic smoking sinus 9 y/o Not on inhaler PMH: Patient Active Problem List Diagnosis Carpal tunnel syndrome UNSPECIFIED GASTRITIS AND GASTRODUODENITIS WITHOUT MENTION OF HEMORRHAGE Esophageal reflux Tobacco use disorder BMI 35-39 ISOLATED (SEE ACTUAL BMI) Type 2 diabetes mellitus with hemoglobin A1c goal of less than 7.0% (HCC) Nonischemic cardiomyopathy (HCC) Impingement syndrome, shoulder, left DDD (degenerative disc disease), lumbar 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) Spinal stenosis of lumbar region with neurogenic claudication Essential (primary) hypertension Type 2 diabetes mellitus with diabetic neuropathy, unspecified (HCC) Atherosclerosis of [place] coronary artery without angina pectoris Lumbar facet arthropathy Symptomatic stenosis of right carotid artery without infarction Trigeminal neuralgia Current Outpatient Medications Medication Sig Dispense Refill nitroglycerin (NITROSTAT) 0.4 MG SUBL Nitrous.IOTouch Verio w/Device Kit Use up to 4 times a day E11.9 1 Kit 0 Nitrous.IOTouch Verio In Vitro Strip (Glucose Blood) Use up to 4 times a day E11.9 100 Strip 11 Nitrous.IOTouch Delica Lancets 33G Use up to 4 times per day 100 Each 3 Aspirin 81 MG Oral Tablet Chewable Take 1 Tablet by mouth in the morning. 30 Tablet 6 Cetirizine HCl 10 MG Oral Tablet Chewable (ZyrTEC) Take 1 Tablet by mouth in the morning. dexAMETHasone 0.1 % Ophthalmic Suspension Apply 4 drops to both ear canals two times a day for 7 days. Then two times a day as needed for itching/dryness. 5 mL 3 Betamethasone Dipropionate 0.05 % External Cream (Diprosone) Apply topically to both external ears two times a day for 7 days. Then two times a day as needed for itching/dryness. 30 g 3 Fluticasone Propionate 50 MCG/ACT Nasal Suspension (Flonase) Administer 2 Sprays into each nostril in the morning. 18 mL 1 Metoprolol Succinate ER 100 MG Oral Tablet [...] the morning and 1 Tablet before bedtime. (Patient not taking: Reported on 07/04/2024) 20 Tablet 0 No current facility-administered medications for this visit. Past Medical History: Diagnosis Date Backache Benign [...] at OR [facility] COLONOSCOPY W/ LESION REMOVAL, SNARE 10/12/10 several polyps, pathshows adenomatous tissue, and no inflammation in small bowel repeat in 3 years,IH, EH diverticulosis COLONOSCOPY, DIAGNOSTIC (RECTUM) 11/14/2017 adenomatous polyp, diverticulosis, repeat 5 yrs/COLONOSCOPY FLEXIBLE PROXIMAL DIAGNOSTIC performed by Rigoberto Perez MD at ENDOSCOPY [facility] CORONARY ANGIOGRAPHY W/LEFT HEART CATH 09/29/2014 CORONARY ANGIOGRAPHY W/LEFT HEART CATH performed by Anisha Marx MD at CARDIAC LABS [facility] EGD, FLEXIBLE, DIAGNOSTIC 11/05/09 wnl INJECT DX/THER SUBSTANCE INTERLAMINAR LUMBAR/SACRAL W IMAGE GUIDE 02/18/2018 INJECTION SPINE LUMBAR OR SACRAL performed by Abhijit Miner, at OR [facility] REMOVAL OF KIDNEY STONE 2002 Kidney Stone Removal WILD STRESS TREADMILL 11/27 Negative TRANSCATH STENT-CAROTID ARTERY, W/EMBOL PROTECTION N/A 11/27/2021 CAROTID STENT WITH DISTAL PROTECTION performed by Miguel Angel Lyons MD at OR [facility] VERTEBRAL ARTERY CATHETER PLACEMENT N/A 11/27/2021 CATHETER PLACEMENT VERTEBRAL ARTERY, performed by Miguel Angel Lyons MD at OR [facility] Review of patient's allergies indicates: Allergen Reactions Ciprofloxacin Itching and Rash Family History Problem Relation Name Age of Onset Cancer Mother Lung CA Heart Disorder Father Multiple PR's started in 40's Heart Disorder Uncle (Unspecified) PR 42 Heart Disorder Brother 1/2 brother PR 60 Heart Disorder Brother CABG - 42 Heart disease Brother stent Heart disease Brother 1/2 - heart transplant Family Status Relation Status Mo at age 56 cancer lung Fa COPD Son Alive Son Alive UNCLE (Not Specified) Bro Bro Alive Bro Alive Bro Alive Social History Socioeconomic History Marital status: Spouse name: Not on file Number of children: 2 Years of education: Not on file Highest education level: Not on file 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 [employer] Tobacco Use Smoking status: Every Day Current packs/day: 1.00 Average packs/day: 1 pack/day for 32.0 years (32.0 ttl pk-yrs) Types: Cigarettes Passive exposure: Current Smokeless tobacco: Never Vaping Use Vaping status: Never Used Substance and Sexual Activity Alcohol use: No Drug use: No Sexual activity: Yes Partners: Female Other Topics Concern Service No Blood Transfusions No Caffeine Concern No Comment: 2-3 cups of coffee, one soda per day Occupational Exposure No Hobby Hazards No Sleep Concern Yes Comment: difficulty falling asleep Stress Concern No Weight Concern No Special Diet Yes Comment: low fat, low sugar Back Care Yes Comment: chronic back pain Exercise No Bike Helmet Not Asked Seat Belt Yes Self-Exams Not Asked Social History Narrative Not on file Social Needs Financial Resource Strain: Low Risk (01/20/2024) Financial Resource Strain Do you have any trouble paying for your medications, or do you think you might in the future? (Adult - for ages 18 years and over): No Does your family have trouble paying for medicine? (Household - for ages 0-17 years): Not on file Food Insecurity: No Food Insecurity (01/20/2024) Food Insecurity Worried About Running Out of Food in the Last Year: Never true Ran Out of Food in the Last Year: Never true Do you need food for this week? (Adult - for ages 18 years and over): No Transportation Needs: No Transportation Needs (01/20/2024) Transportation Needs Do you have trouble getting a ride to medical visits or work? (Adult - for ages 18 years and over):Not on file Does your family have a hard time getting a ride to doctors visits? (Household - for ages 0-17 years): Not on file Has lack of transportation kept you from medical appointments, meetings, work, or from getting things needed for daily living? Check all that apply. (Adult - for ages 18 years and over): No Do you (or your family) have trouble finding or paying for a ride (transportation)? (Household - for ages 0-17 years): Not on file Social Connections: Socially Integrated (01/20/2024) Social Connections How often do you feel lonely or isolated from those around you? (Adult - for ages 18 years and over): Never Housing Stability: Low Risk (01/20/2024) Housing Stability Do you currently live in a residential or have no steady place to sleep at night? (Adult - for ages 18 years and over): No Do you think you are at risk of becoming homeless? (Adult - for ages 18 years and over): Not on file Does your family worry about paying for your home or becoming homeless? (Household - for ages 0-17 years): Not on file Are you homeless or worried that you might be in the future? (Adult - for ages 18 years and over): No Are you (or your family) homeless or worried that you might be in the future? (Household - for ages0-17 years): Not on file Review of Systems Constitutional: Positive for activity change, appetite change and fatigue. Negative for chills, diaphoresis, fever and unexpected weight change. HENT: Positive for congestion and postnasal drip. Eyes: Negative for visual disturbance. Respiratory: Positive for cough and shortness of breath. Negative for chest tightness and wheezing. Cardiovascular: Negative for chest pain, palpitations and leg swelling. Gastrointestinal: Positive for nausea. Negative for abdominal distention and abdominal pain. Endocrine: Negative. Genitourinary: Negative for hematuria. Skin: Positive for pallor. Allergic/Immunologic: Positive for environmental allergies. Neurological: Positive for dizziness, weakness (general) and light-headedness. Negative for speech difficulty and headaches. Psychiatric/Behavioral: Positive for sleep disturbance. Negative for agitation and behavioral problems. Objective BP 119/74 | Pulse 107 | Temp 97 F (36.1 C) (Tympanic) | Resp 18 | Wt 245 lb 9.6 oz (111.4 kg) |SpO2 92% | BMI 35.24 kg/m | BSA 2.35 m Physical Exam Constitutional: General: He is in acute distress. Appearance: Normal appearance. He is ill-appearing. He is not toxic-appearing or diaphoretic. HENT: Head: Normocephalic and atraumatic. Nose: Congestion present. Eyes: Extraocular Movements: Extraocular movements intact. Cardiovascular: Rate and Rhythm: Tachycardia present. Rhythm irregular. Pulmonary: Effort: Respiratory distress present. Breath sounds: No stridor. No wheezing, rhonchi or rales. Chest: Chest wall: No tenderness. Musculoskeletal: Right lower leg: No edema. Left lower leg: No edema. Neurological: General: No focal deficit present. Mental Status: He is alert and oriented to person, place, and time. Cranial Nerves: No cranial nerve deficit. Psychiatric: Behavior: Behavior normal. ASSESSMENT/PLAN: Atrial fibrillation with RVR (HCC) (Primary) SOB (shortness of breath) - EKG; Future; Expected date: 07/04/2024 Tobacco use disorder Chronic sinusitis, unspecified location Chronic rhinitis Type 2 diabetes mellitus with hemoglobin A1c goal of less than 7.0% (HCC) Nonischemic cardiomyopathy (HCC) Type 2 diabetes mellitus with diabetic neuropathy, unspecified whether oil heaterman insulin use (HCC) Essential (primary) hypertension Atherosclerosis of [place] coronary artery of [place] heart without angina pectoris Irregular heart beats - EKG; Future; Expected date: 07/04/2024 Assessment & Plan Afib with RVR with severe SOB, low O2 sat Sending him to ER Verbal sign out to ER head nurse Discussed with pt and family Chronic Rhinitis Chronic sinus drainage with cough, despite use of Singulair and Zyrtec. Likely contributing to current respiratory symptoms. -Adjust Singulair to morning and Zyrtec to evening. -Add saline spray or neti pot for sinus cleansing twice daily. -Continue Flonase after sinus cleansing. Chronic Obstructive Pulmonary Disease (COPD) Long history of smoking (since age 11-12), currently half a pack a day. Likely undiagnosed COPD contributing to respiratory symptoms. -Strong recommendation to stop smoking immediately. -Order inhaler for symptom management. Diabetes and Neuropathy Stable with last A1C at 6.9. -Continue current management. Cardiovascular Disease Known heart condition with no current chest pain. Blood pressure fluctuating with activity. -Continue current management. -Order EKG for further assessment. General Health Maintenance -Perform blood tests today. Randi Walden MD documented in this encounter Nursing Notes * Sussy Ma LPN - 07/04/2024 10:34 AM EST Chief Complaint Patient presents with Congestion Cough Pt is here today for cough and chest congestion. Pt is also having SOB and dizziness and nausea documented in this encounter Plan of Treatment Upcoming Encounters Date Type Department Care Team (Late st Contact Info) Description 07/07/2024 11:30 AM EST Office Visit Otolaryngology [facility] [address] [place] [address] Jcarlos Rodrigues PA-C [address] [place] [address] 07/24/2024 8:40 AM EST Office Visit [facility] [place] [address] [place] [address] Lucas Lazo MD [address] [place] [place] [address] Scheduled Procedures Name Priority Associated Diagnoses Date/Ti me COLONOSCOPY FLEXIBLE PROXIMAL DIAGNOSTIC Recall History of colon polyps Health Maintenance Due Date Last Done Comments DISCUSS TOBACCO CESSATION (REFER TO SMARTSET #[id number]) 1965 Pneumococcal Vaccine: 50+ Years (1 of [...] this encounter Medical Devices Implanted Type Area Child And Adolescent Therapist Device Identifier Shelf Expiration Date Model / Serial / Lot Stent Prec Pro Rx [id number] - [id number] Implanted:Qty : 1 on 11/27/2021 by Miguel Angel Lyons MD at OR [facility] Right: Carotid [facility] : [employer] [id number] 02/24/2023 [id number] / / [id number] Angioseal Vip 8 Fr - [id number] Implanted:Qty : 1 on 11/27/2021 by Miguel Angel Lyons MD at OR [facility] Right: Carotid [employer] [id number] 08/25/2022 [id number] / / [id number] documented as of this encounter Results * EKG (07/04/2024 11:08 AM EST) 07/04/2024 11:0 8 AM EST Narrative Procedure Note Ari Nagy DO - 07/04/2024 11:08 AM EST REASON FOR STUDY: irregular heart beats;irregular heart beats CONCLUSIONS: Atrial fibrillation with rapid ventricular response with prematureventricular or aberrantly conducted complexes Possible Anterior infarct , age undetermined Abnormal ECG When compared with ECG of 27-Nov-2021 08:13, Atrial fibrillation has replaced Sinus rhythm Vent. rate has increased by 73 bpm Nonspecific T wave abnormality now evident in Inferior leads Nonspecific T wave abnormality, improved in Lateral leads Ventricular Rate: 116 Atrial Rate: 312 QRS Duration: 92 QT/QTc: 338/469 ms P-R-T [place]: 0 : 63 : -13 degrees us Randi Walden MD EKG Final Result [facility] documented in this encounter Visit Diagnoses Diagnosis Atrial fibrillation with RVR (HCC)- Primary Atrial fibrillation SOB (shortness of breath) Shortness of breath Tobacco use disorder Chronic sinusitis, unspecified location Chronic rhinitis Type 2 diabetes mellitus with hemoglobin A1c goal of less than 7.0% (HCC) Nonischemic cardiomyopathy (HCC) Other primary cardiomyopathies Type 2 diabetes mellitus with diabetic neuropathy, unspecified whether longterm insulin use (HCC) Essential (primary) hypertension Unspecified essential hypertension Atherosclerosis of [place] coronary artery of [place] heart without angina pectoris Irregular heart beats Cardiac dysrhythmia, unspecified Irregular heart beats Cardiac dysrhythmia, unspecified SOB (shortness of breath) Shortness of breath documented in this encounter Advance Directives * Full Code (Latest Code Status on File) Date Activated Date Inactivated Comments 11/26/2021 10:17 PM 11/28/2021 4:30 PM This order re flects the patients wishes and were consensually agreed upon. Care Teams Machinist 2Nd Shift Relationship Specialty Start Date End Date Lucas Lazo MD [address] [facility] [place] [address] PCP - General 02/26/00 documented as of this encounter"
--- NOTE | 2024-07-05 00:16 | Ultrasound Report ---
Exam(s): US VENOUS BILATERAL LOWER EXTREMITIES EXAM: US Duplex Bilateral Lower Extremities Veins CLINICAL HISTORY: Extensive bilateral PE. TECHNIQUE: Real-time duplex ultrasound scan of the bilateral lower extremity veins integrating B-mode two-dimensional vascular structure, Doppler spectral analysis, color flow Doppler imaging and compression. COMPARISON: No relevant prior studies available. FINDINGS: Right deep veins: The right common femoral vein is compressible. There is occlusive thrombus in the right superficial femoral vein throughout and extending peripherally into the right popliteal vein with subtotal occlusive changes. The right calf veins appear to be patent. The saphenofemoral junction is patent. Right superficial veins: Unremarkable. No thrombus in the saphenofemoral junction. Left deep veins: No DVT in the visualized common femoral, femoral, proximal deep femoral or popliteal veins. The veins demonstrate normal color flow, are normally compressible, with normal phasic flow and/or augmentation response. The interrogated calf veins are patent.. Left superficial veins: Unremarkable. No thrombus in the saphenofemoral junction. Soft tissues: No acute findings. No popliteal cyst. IMPRESSION: 1. There is occlusive thrombus in the right superficial femoral vein throughout and extending peripherally into the right popliteal vein with subtotal occlusive changes. The right calf veins appear to be patent. No involvement of the right common femoral vein is noted. 2. No evidence for deep vein thrombosis involving the left lower extremity. Electronically signed by: Jose Rivas MD 07/05/24 00:15 AM
[2024-07-05 04:45] VITALS: TEMP 98.1
[2024-07-05 05:18] LABS: Hematocrit (blood only) 38.5 % (42.0-52.0); Hemoglobin 13.4 g/dl (14.0-18.0); Mean Corpuscular Hemoglobin 32.3 pg (25.0-34.0); Mean Corpuscular Hgb Conc 34.8 g/dL (32.0-36.0); Mean Corpuscular Volume 92.8 fL (80.0-100.0); Mean Platelet Volume 9.9 fL (9.4-12.4); Platelet Count 161 K/uL (130-400); RDW Coefficient of Variation 14.4 % (11.5-14.5); RDW Standard Deviation 48.2 fL (36.4-46.3); Red Blood Count 4.15 M/uL (4.70-6.10); White Blood Count 10.19 K/ul (4.8-10.8)
[2024-07-05 05:36] LABS: BUN Creatinine Ratio 31.3 (10-20); Calcium 8.7 mg/dl (8.6-10.3); Creatinine Clr Calc Pharmacy 101.1 ml/min; Magnesium 1.9 mg/dl (1.7-2.4); Potassium 4.3 mmol/L (3.5-5.1)
[2024-07-05 05:42] LABS: ANTI-Xa, UFH(UnfractionatedHep 0.53 IU/ml (0.3-0.7)
--- NOTE | 2024-07-05 07:08 | Hospitalist Progress Note ---
Date of Service July 05, 2024 Assessment & Plan (1) Atrial fibrillation with RVR: (2) Tobacco use: (3) Diabetes mellitus, type II: (4) CAD (coronary artery disease): (5) Dyslipidemia: (6) Hypothyroidism: Plan Mr. Salas is a 59yo M with medical history of atrial fibrillation non- compliant with anticoagulation, nonischemic cardiomyopathy (EF of 40-45% in February 2024), diet-controlled DM II, tobacco use disorder, CAD, dyslipidemia, HTN and other medical problems listed admitted for management A fib with RVR in setting of extensive bilateral pulmonary emboli. #Bilateral Pulmonary Embolism (Submassive) #Occlusive right popliteal DVT, femoral superficial VT presented with symptomatic but hemodynamically stable PE with biomarkers c/w RHS (BNP 1314, mild trop elevation to 26) and CT with ?RHS as well Dopplers with no Left DVT, but extensive right femoral dvt and left popliteal dvt - Will need to consider outpatient hypercoagulability studies and age appropriate cancer screening on discharge -Anticoagulation: heparin drip -ECHO pending -Hold entresto iso relative hypotension -Admitted to ICU for hemodynamic monitoring iso extensive pe burden - If clinical deterioration, will need to consider transfer #A fib with RVR #Elevated troponin likely demand iso RVR/PE Diagnosed in Feb 2024, follows with [facility]; Prescribed Eliquis back in Feb, has not started [facility] cardiology consulted -Continue home Metoprolol XL 100mg aqm with IV metop tartrate 5mg q6h prn Has not required further dosing as of yet with HR <120s in ICU Patient does not wish to seek further OP colonscopy, will continue to encourage #Tobacco use patient does not wish to seek options for cessation at this time #Abnormal Chest CTA Chest CTA with 1. Extensive bilateral pulmonary emboli including a small saddle embolus. Dilatation of the right heart chambers raises the possibility of right heart strain. Findings conveyed to Dr. Fox at time of dictation. 2. Trace right pleural effusion. 3. Subpleural right lower lobe ground glass opacity. The appearance favors atelectasis however an underlying pulmonary infarct may be present. 4. A few small subpleural opacities within the left lung. These could reflect small pulmonary infarcts or an infectious process. Chest CT in 3 months to ensure resolution is recommended. Consider follow up CT #History of colonic polyps Last C-scope 2017 - The examined portion of the ileum was normal. - One 4 mm polyp at 30 cm proximal to the anus, removed with a cold snare. Resected and retrieved. - Diverticulosis in the sigmoid colon. #Non-ischemic cardiomyopathy, HFmrEF 2D echo from Feb 2024 with EF 40-45%, mid-mod global hypokinesis of LV Repeat echo as above Home regimen includes Toprol, Entresto Hold entresto iso relative hypotension #Leukocytosis resolved Likely reactive 2/2 conditions above Afebrile, resp viral panel negative Monitor with CBC #High grade right carotid stenosis s/p RANDELL stent 2021 on daily asa 81mg #DM II A1c 6.9 in Feb, repeat in AM Diet controlled at home SSI while in-patient BS[facility] AC HS #Nonobstructive CAD Known disease, (30% LAD stenosis, 30% LCx stenosis on Cath 09/29/2014) Continue aspirin, Toprol, statin intolerance documented #Hypothyroidism Continue levothyroxine DVT Ppx: IV heparin Code status: FULL PCP: Violet Admission and Anticipated Discharge Date Admission Date: July 04, 2024 Subjective admitted to ICU yesterday for hemodynamic monitoring no prn BB utilized overnight, rates <120 mostly Denies any SOB, chest pain, or other acute symptoms, however has not mobilized yet Patient states he does not wish to quit smoking--states he "tried" and doesn't care to "try again" Physical Exam Constitutional: WD/WN, vitals as above Respiratory: normal respiratory effort, lungs clear to auscultation Cardiovascular: irregularly irregular Results & Data Results & Data Vital Signs (Past 12 Hours) Vital Signs Temp Pulse Pulse Resp BP BP Pulse Ox 07/05/24 06:00 108 H 25 H 136/98 95 07/05/24 04:00 36.7 C 117 H 21 90/69 L 96 07/05/24 03:00 110 H 23 101/83 93 07/05/24 02:00 119 H 24 111/86 94 07/05/24 01:00 116 H 23 103/76 92 07/05/24 00:00 112 H 07/05/24 00:00 36.5 C 108 H 22 127/83 93 07/04/24 23:00 106 H 23 121/72 93 07/04/24 21:21 110 H 26 H 95 07/04/24 21:01 131/89 02/07/25 21:01 131/89 07/04/24 21:01 131/89 07/04/24 20:45 110 H 23 92 07/04/24 20:21 101 H 24 94 07/04/24 20:01 104/64 07/04/24 20:01 104/64 07/04/24 20:00 106 H 25 H 104/64 94 07/04/24 20:00 07/04/24 19:57 103 H 22 94 07/04/24 19:06 116 H 22 95 07/04/24 19:01 108/84 07/04/24 19:00 36.6 C 122 H 22 108/84 94 O2 Del Method 07/05/24 06:00 Room Air 07/05/24 04:00 Room Air 07/05/24 03:00 Room Air 07/05/24 02:00 Room Air 07/05/24 01:00 Room Air 07/05/24 00:00 07/05/24 00:00 Room Air 07/04/24 23:00 Room Air 07/04/24 21:21 07/04/24 21:01 07/04/24 21:01 07/04/24 21:01 07/04/24 20:45 07/04/24 20:21 07/04/24 20:01 07/04/24 20:01 07/04/24 20:00 Room Air 07/04/24 20:00 Room Air 07/04/24 19:57 07/04/24 19:06 07/04/24 19:01 07/04/24 19:00 Room Air Laboratory Results Short CBC 07/04/24 07/05/24 Range/Units 11:57 04:34 WBC 13.98 H 10.19 (4.8-10.8) K/ul Hgb 15.1 13.4 L (14.0-18.0) g/dl Hct 44.2 38.5 L (42.0-52.0) % Plt Count 179 161 (130-400) K/uL BMP 07/04/24 07/04/24 07/05/24 11:57 13:05 04:34 Sodium Cancelled 136 137 Potassium Cancelled 4.3 4.3 Chloride Cancelled 107 109 H Carbon Dioxide Cancelled 20 L 20 L BUN Cancelled 29 H 30 H Creatinine Cancelled 0.96 0.96 Glucose Cancelled 144 H 152 H Calcium Cancelled 9.1 8.7 Liver Function 07/04/24 07/04/24 Range/Units 11:57 13:05 Total Bilirubin Cancelled 0.8 AST Cancelled 21 ALT Cancelled 27 Alkaline Phosphatase Cancelled 52 Albumin Cancelled 3.6 Urine 07/04/24 Range/Units 11:49 Urine Color Dark Yellow Urine Appearance Cloudy A (Clear) Urine pH 5.0 (4.5-7.5) Ur Specific [place] 1.035 H (1.000-1.030) Urine Protein 2+ H (Negative) Urine Glucose (UA) Negative (Negative) Medications Administered Home Medications Medication Instructions Recorded Confirmed Last Taken levothyroxine 75 mcg tablet 75 mcg PO DAILY 03/15/18 07/04/24 11/25/21 metoprolol succinate 100 mg 100 mg PO QAM 03/15/18 07/04/24 11/25/21 tablet,extended release 24 hr (Toprol XL) montelukast 10 mg tablet 10 mg PO QAM 11/12/19 07/04/24 11/25/21 nitroglycerin 0.4 mg sublingual 0.4 mg sublingual Q5M PRN chest 11/14/19 07/04/24 Unknown tablet pain #25 tabs cetirizine 10 mg tablet (Zyrtec) 10 mg PO DAILY 01/12/22 07/04/24 Unknown aspirin 81 mg tablet,delayed 81 mg PO DAILY 01/04/23 07/04/24 Unknown release (Adult Low Dose Aspirin) famotidine 20 mg tablet 20 mg PO BID #180 tabs 08/07/23 07/04/24 Unknown sacubitril 97 mg-valsartan 103 mg 1 tab PO BID #180 tabs 02/20/24 07/04/24 Unknown tablet (Entresto) apixaban 5 mg tablet (Eliquis) 5 mg PO BID #180 tabs 03/21/24 07/04/24 Unknown Active Medications Generic Name Dose Route Start Last Admin Trade Name Freq PRN Reason Stop Dose Admin Famotidine 20 mg 07/04/24 21:00 07/04/24 20:30 Famotidine 20 Mg Tab PO 08/03/24 20:59 20 mg BID SADIA Administration Heparin Sodium/Dextrose 25,000 units in 500 mls @ 32 mls/hr 07/04/24 15:30 07/05/24 06:55 Heparin 50839 Unit/500 Ml IV 08/03/24 15:29 1,500 units/hr .[id number] SADIA 30 mls/hr Titration Protocol 1,600 UNITS/HR Insulin Aspart 0 units 07/04/24 18:12 07/04/24 20:34 Insulin Aspart Per Unit Charge SC 08/03/24 18:11 Not Given ACHS SADIA Sacubitril/Valsartan 1 tab 07/04/24 21:00 07/04/24 20:30 Valsartan/Sacubitril 103/97mg Tab PO 08/03/24 20:59 1 tab BID SAIDA Administration (4) CAD (coronary artery disease) Associated angina: without angina Coronary Disease-Associated Artery/Lesion type: [place] artery [place] vs. transplanted heart: [place] heart Qualified Code(s): I25.10 - Atherosclerotic heart disease of [place] coronary artery without angina pectoris
[2024-07-05] MEDS: ASPIRIN 81 MG ECTAB PO SCH (07:44)
[2024-07-05] MEDS: MONTELUKAST SODIUM 10 MG TABLET PO SCH (07:44)
[2024-07-05] MEDS: CETIRIZINE HCL 10 MG TABLET PO SCH (07:44)
[2024-07-05] MEDS: METOPROLOL SUCC 50MG EXT REL TAB PO SCH (07:44)
[2024-07-05] MEDS: LEVOTHYROXINE SODIUM 75 MCG TABLET PO SCH (07:44)
[2024-07-05 09:42] LABS: Estimated Average Glucose 157 mg/dl; Hemoglobin A1C 7.1 % (4.5-5.6)
--- NOTE | 2024-07-05 10:46 | Critical Care Progress Note ---
Date of Service July 05, 2024 Assessment & Plan (1) Bilateral pulmonary embolism: Plan: Patient presented to the ER with extensive bilateral pulmonary emboli. He was mildly hypotensive on admission, but this is resolved. Continue heparin infusion. Echocardiogram is pending. Ultrasound of the right lower extremity with extensive DVT. Will obtain a baseline echocardiogram and ultrasound of his lower extremities. Troponin minimally elevated. BNP significantly elevated to 1314. Patient would benefit from lifelong anticoagulation given his underlying atrial fibrillation and unprovoked PE. Continue metoprolol for rate control of A-fib. Bed rest for today and then slowly increase activity as tolerated tomorrow. Disposition: Remain in the ICU. (2) Atrial fibrillation with rapid ventricular response: Admission and Anticipated Discharge Date Admission Date: July 04, 2024 Subjective Patient was agitated this morning with not being able to get out of bed. We discussed his extensive PE and DVT and he understood better why he was not able to get out of bed. He denies any chest pain at present. He has shortness of breath with minimal exertion. No nausea or vomiting. Review of Systems Review of Systems: All systems reviewed & are unremarkable except as noted in HPI & below Physical Exam Physical Exam: Constitutional: Patient appears to be of their stated age. Patient is in no apparent distress. Patient is well-developed. Eyes: Pupils are equal round and reactive to light. Conjunctivae are normal. Anicteric sclera. Ears nose, mouth and throat: Mallampati class 2. Normal posterior oropharynx. Uvula is midline. Neck: Trachea is midline. Visual inspection is normal. Respiratory: Clear to auscultation bilaterally. No use of accessory muscles. No significant clubbing noted. Cardiovascular: Tachycardia, irregular rhythm. No murmurs. No edema. Gastrointestinal: Normal bowel sounds, soft, nontender and nondistended. No hepatosplenomegaly noted. Musculoskeletal: No cyanosis. Patient is able to move all extremities. Strength is 5 out of 5 in the upper and lower extremities. Skin: No rashes, warm dry and intact. Neurologic: No obvious focal neurological deficits seen. Psychiatric: Alert and oriented x3 with a euthymic affect. Results & Data Results & Data Vital Signs (Past 12 Hours) Vital Signs Temp Pulse Pulse Resp BP BP Pulse Ox 07/05/24 10:01 134/74 07/05/24 10:00 114 H 28 H 94 07/05/24 09:01 104/90 07/05/24 08:54 110 H 21 94 07/05/24 08:47 116 H 07/05/24 08:44 36.7 C 07/05/24 08:37 07/05/24 08:01 102/76 07/05/24 07:57 118 H 23 125/98 93 07/05/24 06:00 108 H 25 H 136/98 95 07/05/24 04:00 36.7 C 117 H 21 90/69 L 96 07/05/24 03:00 110 H 23 101/83 93 07/05/24 02:00 119 H 24 111/86 94 07/05/24 01:00 116 H 23 103/76 92 07/05/24 00:00 112 H 07/05/24 00:00 36.5 C 108 H 22 127/83 93 07/04/24 23:00 106 H 23 121/72 93 O2 Del Method 07/05/24 10:01 07/05/24 10:00 07/05/24 09:01 07/05/24 08:54 07/05/24 08:47 07/05/24 08:44 07/05/24 08:37 Room Air 07/05/24 08:01 07/05/24 07:57 Room Air 07/05/24 06:00 Room Air 07/05/24 04:00 Room Air 07/05/24 03:00 Room Air 07/05/24 02:00 Room Air 07/05/24 01:00 Room Air 07/05/24 00:00 07/05/24 00:00 Room Air 07/04/24 23:00 Room Air Coding Level of Care Code 03267 SUB INP/OBS CARE 2/35MIN Diagnoses Bilateral pulmonary embolism I26.99 Atrial fibrillation with rapid ventricular response I48.91
--- NOTE | 2024-07-05 20:49 | XCELERA ---
[id number]
[2024-07-06 05:11] LABS: Hematocrit (blood only) 39.7 % (42.0-52.0); Hemoglobin 13.4 g/dl (14.0-18.0); Mean Corpuscular Hemoglobin 31.4 pg (25.0-34.0); Mean Corpuscular Hgb Conc 33.8 g/dL (32.0-36.0); Mean Platelet Volume 9.9 fL (9.4-12.4); Platelet Count 172 K/uL (130-400); RDW Coefficient of Variation 14.5 % (11.5-14.5); RDW Standard Deviation 49.1 fL (36.4-46.3); Red Blood Count 4.27 M/uL (4.70-6.10); White Blood Count 10.45 K/ul (4.8-10.8)
[2024-07-06 05:24] LABS: Calcium 8.7 mg/dl (8.6-10.3); Creatinine Clr Calc Pharmacy 115.8 ml/min; Potassium 4.2 mmol/L (3.5-5.1)
[2024-07-06 05:31] LABS: ANTI-Xa, UFH(UnfractionatedHep 0.22 IU/ml (0.3-0.7)
--- NOTE | 2024-07-06 07:36 | Electrocardiogram Report ---
Test Reason : Blood Pressure : */* mmHG Vent. Rate : 101 BPM Atrial Rate : * BPM P-R Int : * ms QRS Dur : 92 ms QT Int : 360 ms P-R-T Axes : * 80 -68 degrees QTcB Int : 466 ms Atrial fibrillation with rapid ventricular response with premature ventricular or aberrantly conducte d complexes Possible Anterior infarct (cited on or before 21-Mar-2024) Nonspecific T wave abnormality Abnormal ECG When compared with ECG of 04-Jul-2024 11:53, No significant change was found Confirmed by Leroy Castellon ([id number]) on 07/06/2024 7:36:33 AM Referred By: Lucas Lazo Confirmed By: Leroy Castellon
[2024-07-06] MEDS ORDERED: Nursing to Pharmacy Communication SCH (08:00)
--- NOTE | 2024-07-06 08:40 | Critical Care Progress Note ---
Date of Service July 06, 2024 Assessment & Plan (1) Bilateral pulmonary embolism: Plan: Patient previously prescribed apixaban; however, did not initiate -Strongly recommend lifelong anticoagulation -Given patient has not initiated apixaban would start loading dose Reviewed cardiology notes -Reinitiate Entresto Increase activity -Am concerned about acute decompensation if patient were to be discharged likely requires additional hospitalization as body continues to normalize Patient stable for downgrade out of ICU. (2) Atrial fibrillation with rapid ventricular response: Admission and Anticipated Discharge Date Admission Date: July 04, 2024 Subjective No events overnight. Patient reports heart rate still fast. Prefers not to go to shared room. Would consider signing himself out AMA if has to go to shared room. Physical Exam Physical Exam: General: Alert. nontoxic. Skin: Warm, dry, Head: Atraumatic Ears, nose, mouth and throat: airway patent Cardiovascular: Normal peripheral perfusion, A-fib with rapid ventricular response noted on bedside monitor Respiratory: no respiratory distress Gastrointestinal: Non distended Musculoskeletal: No deformity Results & Data Results & Data Vital Signs (Past 12 Hours) Vital Signs Pulse Resp BP Pulse Ox 07/06/24 05:06 124 H 24 92 07/06/24 05:06 128/79 07/06/24 05:06 128/79 07/06/24 05:06 128/79 07/06/24 05:03 110 H 29 H 94 07/06/24 04:00 101 H 26 H 94 07/06/24 04:00 131/90 07/06/24 04:00 131/90 07/06/24 03:01 115/86 07/06/24 03:00 115 H 22 93 07/06/24 02:03 116 H 23 94 07/06/24 02:00 124/78 07/06/24 02:00 124/78 07/06/24 01:48 118 H 25 H 93 07/06/24 01:01 124/92 07/06/24 01:01 124/92 07/06/24 01:01 124/92 07/06/24 01:00 117 H 24 93 07/06/24 00:01 128/90 07/06/24 00:01 128/90 07/06/24 00:01 128/90 07/06/24 00:00 114 H 25 H 95 07/06/24 00:00 109 H 07/05/24 23:03 125 H 22 94 07/05/24 23:00 137/76 07/05/24 22:48 99 H 24 93 07/05/24 22:26 119/81 07/05/24 22:21 113 H 24 93 07/05/24 22:09 107 H 28 H 95 07/05/24 21:01 112/78 07/05/24 21:01 112/78 07/05/24 21:00 113 H 27 H 95 Critical Care Results & Data Vital Signs (Past 12 Hours) Vital Signs Pulse Resp BP Pulse Ox 07/06/24 05:06 124 H 24 92 07/06/24 05:06 128/79 07/06/24 05:06 128/79 07/06/24 05:06 128/79 07/06/24 05:03 110 H 29 H 94 07/06/24 04:00 101 H 26 H 94 07/06/24 04:00 131/90 07/06/24 04:00 131/90 07/06/24 03:01 115/86 07/06/24 03:00 115 H 22 93 07/06/24 02:03 116 H 23 94 07/06/24 02:00 124/78 07/06/24 02:00 124/78 07/06/24 01:48 118 H 25 H 93 07/06/24 01:01 124/92 07/06/24 01:01 124/92 07/06/24 01:01 124/92 07/06/24 01:00 117 H 24 93 07/06/24 00:01 128/90 07/06/24 00:01 128/90 07/06/24 00:01 128/90 07/06/24 00:00 114 H 25 H 95 07/06/24 00:00 109 H 07/05/24 23:03 125 H 22 94 07/05/24 23:00 137/76 07/05/24 22:48 99 H 24 93 07/05/24 22:26 119/81 07/05/24 22:21 113 H 24 93 07/05/24 22:09 107 H 28 H 95 07/05/24 21:01 112/78 07/05/24 21:01 112/78 07/05/24 21:00 113 H 27 H 95 Lab & Micro Results (Past 24 Hours) RBC 4.27 M/uL (4.70-6.10) L 07/06/24 WBC 10.45 K/ul (4.8-10.8) 07/06/24 Hgb 13.4 g/dl (14.0-18.0) L 07/06/24 Hct 39.7 % (42.0-52.0) L 07/06/24 MCV 93.0 fL (80.0-100.0) 07/06/24 MCH 31.4 pg (25.0-34.0) 07/06/24 MCHC 33.8 g/dL (32.0-36.0) 07/06/24 RDW Standard Deviation 49.1 fL (36.4-46.3) H 07/06/24 RDW Coefficient of Variation 14.5 % (11.5-14.5) 07/06/24 Plt Count 172 K/uL (130-400) 07/06/24 MPV 9.9 fL (9.4-12.4) 07/06/24 Na 135 mmol/L (136-145) L 07/06/24 K 4.2 mmol/L (3.5-5.1) 07/06/24 Cl 108 mmol/L (98-107) H 07/06/24 CO2 20 mmol/L (21-32) L 07/06/24 Anion Gap 7 (3-11) 07/06/24 BUN 26 mg/dl (6-23) H 07/06/24 Creatinine 0.84 mg/dl (0.6-1.4) 07/06/24 BUN/Creatinine Ratio 31.0 (10-20) H 07/06/24 Glu 128 mg/dl (70-99(Fasting)) H 07/06/24 Ca 8.7 mg/dl (8.6-10.3) 07/06/24 Calcium Level 8.7 mg/dl (8.6-10.3) 07/06/24 04:32 I & O Totals 24 Hours 07/05/24 07/06/24 07/07/24 06:59 06:59 06:59 Intake Total 1468.133 / 2587.456 1902 / 1505 Output Total 400 / 400 500 / 500 Balance 1068.133 / 8450.605 5789 / 1005 Cumulative 07/04/24 11:36 thru 07/06/24 06:48 Intake Total 2973.133 Output Total 900 Balance 2073.133 RT Ventilator Mngmt (Last Documented) Ventilator Ordered Settings Respiratory Rate 24 07/06/24 05:06 Ventilator - PT Measurements Respiratory Rate 24 Coding Level of Care Code 25979 SUB INP/OBS CARE 3/50MIN Diagnoses Bilateral pulmonary embolism I26.99 Atrial fibrillation with rapid ventricular response I48.91
[2024-07-06] MEDS ORDERED: APIXABAN 5 MG TABLET PO SCH (09:00)
[2024-07-06] MEDS: HEPARIN--STOP ORDER ONE (09:12)
[2024-07-06] MEDS: APIXABAN 5 MG TABLET PO SCH (09:12)
--- NOTE | 2024-07-06 11:25 | Hospitalist Progress Note ---
Date of Service July 06, 2024 Assessment & Plan (1) Bilateral pulmonary embolism: (2) Deep vein thrombosis of right lower extremity: (3) Atrial fibrillation with rapid ventricular response: (4) Acute on chronic heart failure with reduced ejection fraction (HFrEF, <= 40%): (5) Nonischemic cardiomyopathy: (6) Diabetes mellitus, type II: (7) CAD (coronary artery disease): (8) Dyslipidemia: (9) Hypothyroidism: (10) Tobacco use: Plan Patient presented with acute dyspnea. Noted to be in atrial fibrillation with rapid ventricular sponsor subsequently diagnosed bilateral pulmonary embolism and a right lower extremity DVT. Patient was not on anticoagulation due to his choosing to not take prescribed Eliquis. Patient is significantly improved from pulmonary embolism standpoint. Can transition to oral Eliquis today Atrial fibrillation still uncontrolled, communication with cardiology for recommendations on further interventions for better rate control suspect he will need some additional intervention and not just treatment of the pulmonary embolism Reviewed echocardiogram, significant decreased ejection fraction, however at baseline. Patient does examine slightly volume overload may benefit from some additional diuresis Reviewed glucoses, overall fair control, continue sliding scale Continue thyroid supplementation Okay for PCU status Admission and Anticipated Discharge Date Admission Date: July 04, 2024 Subjective Patient is feeling improved, less shortness of breath. Eager to get out of here. Physical Exam Physical Exam: Constitutional: Alert, nontoxic, no acute distress HEENT: Mucous membranes moist. Lungs: Decreased breath sounds, prolonged expiratory phase CV: S1-S2, irregularly irregular, tachycardic Abdomen: Soft, nontender, nondistended Extremities: Bilateral lower extremity edema Neuro: No focal deficits Psych: Cooperative, normal mood Results & Data Results & Data Vital Signs (Past 12 Hours) Vital Signs Temp Pulse Resp BP Pulse Ox O2 Del Method 07/06/24 09:53 110 H 07/06/24 09:51 Room Air 07/06/24 09:24 36.7 C 07/06/24 09:03 113 H 28 H 93 07/06/24 09:00 126/85 07/06/24 09:00 126/85 07/06/24 08:57 117 H 32 H 92 07/06/24 08:15 132/97 07/06/24 08:01 85/73 L 07/06/24 08:00 116 H 28 H 94 07/06/24 07:02 107 H 23 92 07/06/24 07:01 146/120 H 07/06/24 05:06 124 H 24 92 07/06/24 05:06 128/79 07/06/24 05:06 128/79 07/06/24 05:06 128/79 07/06/24 05:03 110 H 29 H 94 07/06/24 04:00 101 H 26 H 94 07/06/24 04:00 131/90 07/06/24 04:00 131/90 07/06/24 03:01 115/86 07/06/24 03:00 115 H 22 93 07/06/24 02:03 116 H 23 94 07/06/24 02:00 124/78 07/06/24 02:00 124/78 07/06/24 01:48 118 H 25 H 93 07/06/24 01:01 124/92 07/06/24 01:01 124/92 07/06/24 01:01 124/92 07/06/24 01:00 117 H 24 93 07/06/24 00:01 128/90 07/06/24 00:01 128/90 07/06/24 00:01 128/90 07/06/24 00:00 114 H 25 H 95 07/06/24 00:00 109 H Diagnostic Findings Reviewed imaging, laboratory and diagnostic studies. Pertinent findings as below. Hemoglobin 13.4 Creatinine 0.84 Glucose was reviewed (7) CAD (coronary artery disease) Associated angina: without angina Coronary Disease-Associated Artery/Lesion type: [place] artery [place] vs. transplanted heart: [place] heart Qualified Code(s): I25.10 - Atherosclerotic heart disease of [place] coronary artery without angina pectoris
[2024-07-06] MEDS: FUROSEMIDE 40 MG/4 ML VIAL IV ONE (12:02)
[2024-07-06 13:14] VITALS: RESP 18; O2SAT 94
[2024-07-06] MEDS ORDERED: PHENAZOPYRIDINE HCL 100 MG TAB PO PRN (13:30)
[2024-07-06] MEDS: METOPROLOL TARTRATE 1 MG/ML VIAL IV PRN (14:48)
--- NOTE | 2024-07-06 16:36 | Cardiology Progress Note ---
Date of Service July 06, 2024 Assessment & Plan (1) Atrial fibrillation with rapid ventricular response: (2) Permanent atrial fibrillation: (3) CAD (coronary artery disease): (4) Nonischemic cardiomyopathy: (5) Pulmonary emboli: Plan ASSESSMENT/PLAN: 1. Atrial fibrillation with rapid ventricular response: Asymptomatic today. Permanent A-fib per records. Heart rate not adequately controlled. Recommend increasing metoprolol succinate to 200 mg daily total. Can give 100 mg this evening/afternoon and then either 100 mg twice daily starting tomorrow or 200 mg every morning. Recommend close follow-up to evaluate heart rate. Continue anticoagulation for stroke risk reduction. 2. Cardiomyopathy: Nonischemic based on nonobstructive CAD in the past. Tachycardia in the setting of A-fib may be playing a role. Increase metoprolol succinate as above. Continue Entresto. Consider spironolactone, if no contraindication but this can be initiated in the outpatient setting as he plans on leaving today. Recommend repeating echo in the outpatient setting. If no significant improvement, would qualify for ICD for primary prevention. We did not discuss this in detail as he was adamant about leaving. Could consider repeating ischemic evaluation as it has been approximately 10 years since his cardiac catheterization per records and he has multiple risk factors. He appears euvolemic. 3. Pulmonary emboli: As per primary hospitalist service. 4. Disposition: He is adamant about leaving today and states that he is leaving. Primary hospitalist, Dr. Vallejo, was notified of patient wishes and also recommendations to titrate beta-gabriel. Message sent to office staff and Mr. Whitneyeler to help arrange follow-up appointment this week in the outpatient setting. Admission and Anticipated Discharge Date Admission Date: July 04, 2024 Subjective Was asked by hospitalist to see Mr. Salas today in regards to rate control. He remains in atrial fibrillation which is not a new issue and his heart rate has remained elevated for the most part. He denies chest pain, shortness of breath, syncope, near syncope, palpitations, edema, or bleeding. He tells me that he is leaving today and that he is fed up with being here. He wants to be seen by Mr. Bailey RIBEIRO soon in the outpatient cardiology office. His was present at the bedside. Physical Exam Physical Exam: Gen.: No acute distress. Alert and oriented. HEENT: Anicteric sclera. Neck: No JVD. Cardiac: Irregularly irregular. Normal S1-S2. No murmurs, rubs, or gallops. Pulmonary: Clear to auscultation bilaterally without wheezes, rales, or rhonchi. Abdomen: Soft, nontender, nondistended, with normoactive bowel sounds. No bruits noted. Extremities: 2+ radial pulses bilaterally. 2+ posterior tibialis pulses bilaterally. No edema or cyanosis. Results & Data Vital Signs (Past 12 Hours) Vital Signs Temp Pulse Resp BP Pulse Ox O2 Del Method 07/06/24 14:54 97 H 07/06/24 14:48 147 H 07/06/24 13:01 100/75 07/06/24 13:00 136 H 18 94 07/06/24 12:03 113 H 24 94 07/06/24 12:01 100/62 07/06/24 11:09 97 H 26 H 94 07/06/24 11:01 127/82 07/06/24 09:53 110 H 07/06/24 09:51 Room Air 07/06/24 09:24 36.7 C 07/06/24 09:03 113 H 28 H 93 07/06/24 09:00 126/85 07/06/24 09:00 126/85 07/06/24 08:57 117 H 32 H 92 07/06/24 08:15 132/97 07/06/24 08:01 85/73 L 07/06/24 08:00 116 H 28 H 94 07/06/24 07:02 107 H 23 92 07/06/24 07:01 146/120 H 07/06/24 05:06 124 H 24 92 07/06/24 05:06 128/79 07/06/24 05:06 128/79 07/06/24 05:06 128/79 07/06/24 05:03 110 H 29 H 94 Laboratory Results Laboratory Results - last 24 hr 07/05/24 07/06/24 07/06/24 20:44 04:32 07:25 WBC 10.45 RBC 4.27 L Hgb 13.4 L Hct 39.7 L MCV 93.0 MCH 31.4 MCHC 33.8 RDW Std Deviation 49.1 H RDW Coeff of Rhonda 14.5 Plt Count 172 MPV 9.9 Heparin Anti-Xa, Unfract 0.22 L Sodium 135 L Potassium 4.2 Chloride 108 H Carbon Dioxide 20 L Anion Gap 7 BUN 26 H Creatinine 0.84 Est Cr Clr Drug Dosing 115.8 eGFR 99.21 BUN/Creatinine Ratio 31.0 H Glucose 128 H POC Glucose 138 H 123 H Calcium 8.7 07/06/24 11:21 WBC RBC Hgb Hct MCV MCH MCHC RDW Std Deviation RDW Coeff of Rhonda Plt Count MPV Heparin Anti-Xa, Unfract Sodium Potassium Chloride Carbon Dioxide Anion Gap BUN Creatinine Est Cr Clr Drug Dosing eGFR BUN/Creatinine Ratio Glucose POC Glucose 144 H Calcium Diagnostic Findings Telemetry personally reviewed: Atrial fibrillation with rapid ventricular re sponse. Labs reviewed from 07/06/2024, demonstrating very mild anemia, stable renal function, normal potassium. Echo report from 07/05/2024 reviewed: Moderately to severely reduced LV systolic function. EF 30-35%. Global hypokinesis. Septal flattening during diastole suggest RV volume overload. Moderately dilated right ventricle with moderately reduced systolic function. Moderate right atrial dilation. No significant valvular abnormalities. EF was described as 35 to 40% on 01/15/2023 study. Medications Administered Current Inpatient Medications Acetaminophen (Acetaminophen 325 Mg Tab) 650 mg PO Q4H PRN PRN Reason: Pain or Fever Stop: 08/03/24 18:11 Al Hydrox/Mg Hydrox/Simethicone (Aluminum/Magnesium Susp 30 Ml Udc) 15 ml PO Q4H PRN PRN Reason: Dyspepsia Stop: 08/03/24 18:11 Apixaban (Apixaban 5 Mg Tablet) 10 mg PO BID [facility] Stop: 07/12/24 21:01 Last Admin: 07/06/24 09:12 Dose: 10 mg Apixaban (Apixaban 5 Mg Tablet) 5 mg PO BID [facility] Stop: 08/12/24 08:59 Aspirin (Aspirin 81 Mg Ectab) 81 mg PO DAILY S[facility] Stop: 08/04/24 08:59 Last Admin: 07/06/24 08:01 Dose: 81 mg Cetirizine HCl (Cetirizine Hcl 10 Mg Tablet) 10 mg PO DAILY [facility] Stop: 08/04/24 08:59 Last Admin: 07/06/24 08:00 Dose: 10 mg Dextrose (Dextrose 50% 50 Ml Syringe) 25 - 50 ml IV UD PRN; Protocol PRN Reason: Hypoglycemia Protocol Stop: 08/03/24 18:11 Famotidine (Famotidine 20 Mg Tab) 20 mg PO BID [facility] Stop: 08/03/24 20:59 Last Admin: 07/06/24 08:00 Dose: 20 mg Glucagon (Glucagon For Inj 1 Mg Vial) 1 mg SQ UD PRN; Protocol PRN Reason: Hypoglycemia Protocol Stop: 08/03/24 18:11 Glucose (Glucose 40% Gel 15 Gm Tube) 15 - 30 gm PO UD PRN; Protocol PRN Reason: Hypoglycemia Protocol Stop: 08/03/24 18:11 Glucose (Glucose 10 Tab/Tube) 4 - 8 tab PO UD PRN; Protocol PRN Reason: Hypoglycemia Protocol Stop: 08/03/24 18:11 Insulin Aspart (Insulin Aspart Per Unit Charge) 0 units SC ACHS [facility] Stop: 08/03/24 18:11 Last Admin: 07/06/24 12:04 Dose: 1 units Levothyroxine Sodium (Levothyroxine Sodium 75 Mcg Tablet) 75 mcg PO DAILY [facility] Stop: 08/04/24 08:59 Last Admin: 07/06/24 08:01 Dose: 75 mcg Metoprolol Succinate (Metoprolol Succ 50mg Ext Rel Tab) 100 mg PO BID [facility] Stop: 08/05/24 20:59 Metoprolol Tartrate (Metoprolol Tartrate 1 Mg/Ml Vial) 5 mg IV Q6 PRN PRN Reason: tachycardia >130 Stop: 08/05/24 17:59 Last Admin: 07/06/24 14:48 Dose: 5 mg Miscellaneous (Carbohydrates For Hypoglycemia ) 15 - 30 gm PO UD PRN PRN Reason: Hypoglycemia Protocol Stop: 08/03/24 18:11 Montelukast Sodium (Montelukast Sodium 10 Mg Tablet) 10 mg PO QAM [facility] Stop: 08/04/24 08:59 Last Admin: 07/06/24 08:01 Dose: 10 mg Ondansetron HCl (Ondansetron Inj 2 Mg/Ml 2 Ml Vial) 4 mg IV Q6H PRN PRN Reason: Nausea Stop: 08/03/24 18:11 Phenazopyridine HCl (Phenazopyridine Hcl 100 Mg Tab) 100 mg PO TID PRN PRN Reason: voiding irritation Stop: 08/05/24 13:29 Polyethylene Glycol (Polyethylene (Miralax) 17 Gm Pack) 17 gm PO DAILY PRN PRN Reason: Constipation Stop: 08/03/24 18:11 Sacubitril/Valsartan (Valsartan/Sacubitril 103/97mg Tab) 1 tab PO BID [facility] Stop: 08/03/24 20:59 Last Admin: 07/06/24 08:00 Dose: 1 tab PG Care Time/CCT Total # of Minutes Spent Total Time Spent with Patient: Total time spent is greater than 50% in coordination of care (as documented) at patient's floor/unit and/or counseling patient: Coding Level of Care Code 76695 SUB INP/OBS CARE 3/50MIN Diagnoses Atrial fibrillation with rapid ventricular response I48.91 Permanent atrial fibrillation I48.21 Coronary artery disease involving [place] coronary artery of [place] heart without angina pectoris I25.10 Associated angina: without angina Coronary Disease-Associated Artery/Lesion type: [place] artery [place] vs. transplanted heart: [place] heart Nonischemic cardiomyopathy I42.8 Pulmonary emboli I26.09 Acute cor pulmonale presence: with acute cor pulmonale Chronicity: acute Pulmonary embolism type: unspecified (3) CAD (coronary artery disease) Associated angina: without angina Coronary Disease-Associated Artery/Lesion type: [place] artery [place] vs. transplanted heart: [place] heart Qualified Code(s): I25.10 - Atherosclerotic heart disease of [place] coronary artery without angina pectoris (5) Pulmonary emboli Acute cor pulmonale presence: with acute cor pulmonale Chronicity: acute Pulmonary embolism type: unspecified Qualified Code(s): I26.09 - Other pulmonary embolism with acute cor pulmonale
[2024-07-06] MEDS: METOPROLOL SUCC 50MG EXT REL TAB PO SCH (16:54)
[2024-07-06 17:11] VITALS: BP 136/98; PULSE 108
--- NOTE | 2024-07-06 17:27 | Discharge Summary ---
Discharge Summary Date of Service July 06, 2024 Principal Dx & Hospital Course #1 = Principal Diagnosis (1) Bilateral pulmonary embolism: (2) Deep vein thrombosis of right lower extremity: (3) Atrial fibrillation with rapid ventricular response: (4) Acute on chronic heart failure with reduced ejection fraction (HFrEF, <= 40%): (5) Nonischemic cardiomyopathy: (6) Diabetes mellitus, type II: (7) CAD (coronary artery disease): (8) Dyslipidemia: (9) Hypothyroidism: (10) Tobacco use: Plan Patient presented to the ER with worsening dyspnea. He was noted to be in atrial fibrillation with rapid ventricular response and subsequently diagnosed with bilateral pulmonary embolism and right lower extremity DVT. Patient was admitted to the ICU due to the extensiveness of his pulmonary emboli. He was started on IV heparin. Orthotic Fitter and cardiology consultations were obtained. The patient's beta-gabriel was increased. Echocardiogram was performed which did show some right ventricular strain and showed his known decreased ejection fraction. Through the patient's hospitalization his shortness of breath improved, however he was difficult to control his ventricular response. The patient was quite impatient and wanted to be discharged home. Patient was well aware of his rapid ventricular response. He did stay to discuss with cardiology this evening. Agreement to increasing his metoprolol. He was transition to Eliquis. Patient reports he has Eliquis at home however he was not taking it. Did see the patient before he decided to leave AGAINST MEDICAL ADVICE. He is aware that he is not considered medically stable for discharge at this time. Aware of the risks of leaving AGAINST MEDICAL ADVICE. His is at the bedside and is also aware. He expressed understanding of the risks and still chose to sign out AGAINST MEDICAL ADVICE. I did send prescriptions for the Eliquis and the change in beta-gabriel dosing to his pharmacy. 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 Notes For Next Care Provider May need additional interventions for rate control Medication Changes From Visit Eliquis for PE DVT, will need lifelong anticoagulation with atrial fibrillation Metoprolol dosing increased Admission HPI Per Admitting Provider This is a 59yo M with a PMH of atrial fibrillation non-compliant with anticoagulation, Nonischemic cardiomyopathy (EF of 40-45% in February 2024), diet-controlled DM II, tobacco use disorder, CAD, dyslipidemia, HTN and other medical problems listed below who presents with dyspnea on exertion and elevated HR. Was seen by PCP earlier today for cough and dyspnea on exertion x 6 days. In the office, patient was noted to by tachycardic with EKG revealing A fib with HR in 130s. Does report to be taking Toprol as prescribed and took this AM. Was diagnosed with atrial fibrillation back in February 2024 and [place] [facility] [place]. Was prescribed Eliquis at that time but has not started as he "wanted to do research on it". In addition to the dyspnea on exertion and cough for the past few days, also endorses intermittent palpitations and difficulty taking a deep breath. Denies any calf pain or swelling. Compliant with the rest of his medications. Still smoking 0.5 PPD. Denies any known history of clotting disorder. Admission Exam Per Admitting Provider See H&P Discharge Exam Constitutional: Alert, nontoxic HEENT: Mucous membranes moist. Lungs: Decreased breath sounds CV: S1-S2, irregular irregular, tachycardic Abdomen: Soft, nontender, nondistended Extremities: No significant edema Neuro: No focal deficits Psych: Cooperative, normal mood Updated Medication List Medication Instructions Recorded Confirmed Type levothyroxine 75 mcg tablet 75 mcg PO DAILY 03/15/18 07/04/24 History montelukast 10 mg tablet 10 mg PO QAM 11/12/19 07/04/24 History nitroglycerin 0.4 mg sublingual 0.4 mg sublingual Q5M PRN chest 11/14/19 07/04/24 Rx tablet pain #25 tabs cetirizine 10 mg tablet (Zyrtec) 10 mg PO DAILY 01/12/22 07/04/24 History aspirin 81 mg tablet,delayed 81 mg PO DAILY 01/04/23 07/04/24 History release (Adult Low Dose Aspirin) famotidine 20 mg tablet 20 mg PO BID #180 tabs 08/07/23 07/04/24 Rx sacubitril 97 mg-valsartan 103 mg 1 tab PO BID #180 tabs 02/20/24 07/04/24 Rx tablet (Entresto) apixaban 5 mg tablet (Eliquis) See Rx Instructions .Route 07/06/24 Rx .COMPLEX #72 tabs metoprolol succinate 50 mg 100 mg (2 x 50 mg) PO BID 30 days 07/06/24 Rx tablet,extended release 24 hr #120 tabs Hospital Stay Data Consultations 07/04/24 15:29 ED Decision to Admit Stat 07/04/24 16:46 Consult Orthotic Fitter Routine 07/04/24 17:26 Consult Cardiology Routine Diagnostic Imagining Performed 07/04/24 13:15 CT angio chest PE protocol Stat 07/04/24 17:19 US leg [US venous doppler LE BI] Urgent Reviewed imaging, laboratory and diagnostic studies. Pertinent findings as below. Hemoglobin 13.4 Creatinine 0.84 Ultrasound lower extremity showed right femoral vein and popliteal vein DVT, no evidence of DVT in the left lower extremity Echocardiogram showed ejection fraction of 30 to 35%, this is his baseline, dilated right ventricle with reduced systolic function, dilated right atria. I refer you to the full report for details Pending Results Patient Have Any Pending Studies at Discharge: No Discharge Instructions Given to Patient (Per Discharging Provider) It is critical that you take the Eliquis as prescribed Total Time Total Time Spent Total Time Spent (In Minutes): 49
[2024-07-13] MEDS ORDERED: APIXABAN 5 MG TABLET PO SCH (09:00)
== END 2024-07-06 17:28 | disposition left against medical advice (07) | DRG 175 ==
LOC: ED 11:36 → EDINP 16:29 → SUATTDRO 16:29 → 1E 17:20